=== PATIENT | male | born 1970 ===

== ENCOUNTER 2018-04-20 01:08 | Inpatient (IN) | payer SELFPAY ==
[2018-04-20] MEDS ORDERED: DOPAMINE 400 MG/D5W - 400,000 MCG/250 ML INFUS.BAG IVPB ONE (01:25)
[2018-04-20 01:38] VITALS: BMI 29.0
[2018-04-20] MEDS ORDERED: EPINEPHrine 1:10,000 (P-F SYR) 1 MG/10 ML DISP.SYRIN ONE ×2 (01:39→02:11)
[2018-04-20 01:49] LABS: ARTERIAL BLD GAS O2 SATURATION 71.1 % (90-98.9); ARTERIAL BLOOD GAS BASE EXCESS -27.4 meq/l (-2-2)
[2018-04-20 01:51] LABS: ARTERIAL BLOOD GAS PCO2 93.4 mmHg (35-45); ARTERIAL BLOOD GAS PO2 74.5 mmHg (80-100)
[2018-04-20 01:58] LABS: BASO % 0.4 % (0-2.0); EOS % 1.9 % (0-4.5); HEMATOCRIT 38.7 % (35.4-49); HEMOGLOBIN 11.9 GM/dL (11.7-16.9); LYMPH % 39.3 % (8-40); MCHC 30.7 g/dl (32.0-35.9); MEAN CELL VOLUME 100.8 fl (80-96); MEAN PLT VOLUME 10.3 fl (7.5-11.1); MONO % 5.9 % (3.8-10.2); NEUT % 52.5 % (42.8-82.8); PLATELET COUNT 154 K/MM3 (134-434); RBC 3.83 M/mm3 (4.00-5.60); RDW 14.5 % (11.9-15.9); WHITE BLOOD COUNT 12.5 K/mm3 (4.0-10.0)
[2018-04-20] MEDS ORDERED: CALCIUM CHLORIDE 1 GM/10 ML *DISP.SYRIN ONE (02:12)
[2018-04-20] MEDS ORDERED: SODIUM BICARBONATE 8.4% 50 MEQ/50 ML VIAL ONE (02:12)
[2018-04-20 02:20] LABS: ARTERIAL BLD GAS O2 SATURATION 98.4 % (90-98.9); ARTERIAL BLOOD GAS BASE EXCESS -19.1 meq/l (-2-2); ARTERIAL BLOOD GAS PCO2 45.1 mmHg (35-45)
[2018-04-20 02:29] LABS: ALBUMIN 2.5 g/dl (3.4-5.0); ALK PHOS 75 U/L (45-117); ANION GAP 32 MMOL/L (8-16); BILIRUBIN,TOTAL < 0.1 mg/dL (0.2-1); BLOOD UREA NITROGEN 5 mg/dL (7-18); CHLORIDE 91 mmol/L (98-107); CO2 14 mmol/L (21-32); CREATININE 1.6 mg/dL (0.55-1.3); POTASSIUM 3.2 mmol/L (3.5-5.1); SGOT/AST 93 U/L (15-37); SGPT/ALT 95 U/L (13-61); SODIUM 136 mmol/L (136-145); TOT PROT 5.3 g/dl (6.4-8.2)
[2018-04-20 02:33] LABS: CALCIUM 14.5 mg/dL (8.5-10.1); GLUCOSE,RANDOM 694 mg/dL (74-106)
[2018-04-20 02:34] LABS: ARTERIAL BLOOD GAS pH 7.04 (7.35-7.45)
[2018-04-20 02:43] LABS: INR 1.18 (0.83-1.09); PROTHROMBIN TIME (PATIENT) 13.9 SEC (9.7-13.0)
[2018-04-20 02:46] LABS: ACTIVATED PTT 46.1 SECONDS (25.2-36.5)
[2018-04-20 03:36] LABS: METHADONE, UR NEGATIVE ng/ml (CUTOFF=300); OPIATES, URI NEGATIVE ng/ml (CUTOFF=300); PHENCYCLIDINE,URINE NEGATIVE ng/ml (CUTOFF=25); URINE AMPHETAMINES NEGATIVE ng/ml (CUTOFF=500); URINE BARBITURATES NEGATIVE ng/ml (CUTOFF=200); URINE BENZODIAZEPINES NEGATIVE ng/ml (CUTOFF=200)
[2018-04-20 03:42] LABS: COCAINE, UR POSITIVE ng/ml (CUTOFF=300)
--- NOTE | 2018-04-20 03:49 | PDOC ---
Attending Attestation - HPI HPI: 04/20/18 03:49 The patient is a 48 year old male, with unknown significant past medical history , who presents to the emergency department via EMS unresponsive. As per EMS, the arrived at the [facility] on [facility] at 12:31am and the patient was unresponsive in cardiac arrest. The call to EMS was made by security after hearing an individual call for help approximately 5 times. While at the scene the patient was outside of the bathroom soaking wet, there was no sign of another person with him, a box of enemas and gloves were located in the fridge, and multiple chicken bones placed in the bathtub. EMS notes no medications or drugs were noted at the scene. EMS arrived to the ED at 1:07am after administering 5 of Epi and 4mg of Narcan, a 7.5 tube was placed, and Blane in place. 1:12am- the patient was administered epi and on bedside ultrasound patient had cardiac motility (PEA). 1:14am- Bicarb, CaCl administered. 1:16am- D50 administered 1:17am- 2mg Mg administered 1:18am- Epi administered 1:20am- Pulse check- Vfib; Shock; Asystole 1:21am- Epi administered 1:22am- Bicarb administered 1:27am- Pulse check; pulses noted 1:32am- Dopamine initiated at 5mcg 1:39am- 66/49 and Dopamine raised to 20mcg; pulse check- pulses noted 1:45am- Norepinephrine started at 4mg in 250mL at 44mcg 1:47am- 66/38 1:51am- 66/38 1:53am- 89/62 O2 saturation 100% 2:01am- Central line placed 2:12am- Blood glucose over range. - Physicial Exam PE: 04/20/18 03:50 Agree with resident exam. <Rinku Lemus - Last Filed: 04/20/18 03:52> - Resident Resident Name: Kristal Diaz - ED Attending Attestation I have performed the following: I have examined & evaluated the patient, The case was reviewed & discussed with the resident, I agree w/resident's findings & plan - Critical Care Time Total Critical Care Time: 90 Critical Care Statement: The care of this patient involved high complexity decision making to prevent further life threatening deterioration of the patient 's condition and/or to evaluate & treat vital organ system(s) failure or risk of failure. - Medical Decision Making 04/20/18 04:00 48-year-old male status post cardiac arrest with ROSC ACLS protocol initiated prior to arrival by EMS with successful intubation in the field Patient had approximately 20-30 minutes of asystole, ACLS continued in the emergency department with successful ROSC Call placed to [facility] catheter lab who declined the patient at this time due to nonspecific EKG changes Cooling measures initiated Case discussed with in-house ICU and hospitalist for admission Impression: Cardiac arrest Cocaine use <Vannesa Razo - Last Filed: 04/20/18 04:03> Attestations - Attestations 04/20/18 03:50 Documentation prepared by Rinku Lemus, acting as medical insurance claims specialist for Vannesa Razo DO. <Rinku Lemus - Last Filed: 04/20/18 03:52>
[2018-04-20] MEDS ORDERED: SODIUM CHLORIDE 1,000 ML IV SCH (04:30)
--- NOTE | 2018-04-20 04:33 | HP ---
<Reyna Dennis - Last Filed: 04/20/18 05:55> CHIEF COMPLAINT: cardiac arrest PCP: unknown HISTORY OF PRESENT ILLNESS: 48 y/o male, from the [place] with unknown PMH presented to the ED after having a cardiac arrest. Patient was at the [facility] when he began screaming, security came up and patient was found face down, soaking wet, for an unknown amount of time. Found at the scene were enemas and a chicken bone in the bathtub, however, no drugs were found at the scene- patient was alone. EMS was called and on route patient was given 4 mg epi and 7 of narcan and arrived by 1:07 to the ED. police was contacted (please see ED note for all further noes), patient was Vfib, PEA, asystole. [place] police dept was contacted by EMS , they were aware of the arrest. - ER course was notable for: (1) ROSC was achieved after 20-30 mins; patient intubated (2)on 4 of levpophed and 20 of dopamine (3) utox positive for cocaine Recent Travel: unknown PAST MEDICAL HISTORY: unknown PAST SURGICAL HISTORY: unknown Social History: Smoking:unknown Alcohol:unknown Drugs: positive cocaine Family History: Allergies No Allergy Information Available Allergy (Verified 04/20/18 01:38) HOME MEDICATIONS: Home Medications Medication Instructions Recorded Unobtainable 04/20/18 REVIEW OF SYSTEMS unable to obtain given patient is intubated CONSTITUTIONAL: Absent: fever, chills, diaphoresis, generalized weakness, malaise, loss of appetite, weight change HEENT: Absent: rhinorrhea, nasal congestion, throat pain, throat swelling, difficulty swallowing, mouth swelling, ear pain, eye pain, visual changes CARDIOVASCULAR: Absent: chest pain, syncope, palpitations, irregular heart rate, lightheadedness , peripheral edema RESPIRATORY: Absent: cough, shortness of breath, dyspnea with exertion, orthopnea, wheezing, stridor, hemoptysis GASTROINTESTINAL: Absent: abdominal pain, abdominal distension, nausea, vomiting, diarrhea, constipation, melena, hematochezia GENITOURINARY: Absent: dysuria, frequency, urgency, hesitancy, hematuria, flank pain, genital pain MUSCULOSKELETAL: Absent: myalgia, arthralgia, joint swelling, back pain, neck pain SKIN: Absent: rash, itching, pallor HEMATOLOGIC/IMMUNOLOGIC: Absent: easy bleeding, easy bruising, lymphadenopathy, frequent infections ENDOCRINE: Absent: unexplained weight gain, unexplained weight loss, heat intolerance, cold intolerance NEUROLOGIC: Absent: headache, focal weakness or paresthesias, dizziness, unsteady gait, seizure, mental status changes, bladder or bowel incontinence PSYCHIATRIC: Absent: anxiety, depression, suicidal or homicidal ideation, hallucinations. PHYSICAL EXAMINATION Vital Signs - 24 hr 04/20/18 04/20/18 01:08 01:30 Pulse Rate 92 H Respiratory 8 L 20 Rate Blood Pressure 109/24 L O2 Sat by Pulse 53 L Oximetry (%) GENERAL: intubated.; fasiculations and anoxic jerking motions present EYES: blood shot pupils; fixed and dilated. NECK: no JVD, no lymphadenopathy LUNGS: CTA B/L; no rales, rhonchi or wheezing HEART: tachycardic, normal S1 and S2 without murmur, rub or gallop. ABDOMEN: distended; tympanic upon percussion, diminished bowel sounds. MUSCULOSKELETAL: Normal range of motion at all joints. No bony deformities or tenderness. No CVA tenderness. EXTREMITIES; cool; no clubbing or edema NEUROLOGICAL: no response to painful stimuli. PSYCHIATRIC: Cooperative. Good eye contact. Appropriate mood and affect. SKIN: Warm, dry, normal turgor, no rashes or lesions noted, normal capillary refill. Laboratory Results - last 24 hr 04/20/18 04/20/18 04/20/18 01:40 01:40 01:40 WBC 12.5 H RBC 3.83 L Hgb 11.9 Hct 38.7 MCV 100.8 H MCH 31.0 MCHC 30.7 L RDW 14.5 Plt Count 154 MPV 10.3 Absolute Neuts (auto) 6.6 Neutrophils % 52.5 Lymphocytes % 39.3 Monocytes % 5.9 Eosinophils % 1.9 Basophils % 0.4 Nucleated RBC % 0 PT with INR 13.90 H INR 1.18 H PTT (Actin FS) 46.1 H Anticoagulation Therapy No Result Required. Puncture Site Right femoral ABG pH 6.70 L* ABG pCO2 at Pt Temp 93.4 H* ABG pO2 at Pt Temp 74.5 L ABG HCO3 10.9 L* ABG O2 Sat (Measured) 71.1 L* ABG O2 Content 12.0 L ABG Base Excess -27.4 L* Randy Test No Result Required. Carboxyhemoglobin 0.0 L Methemoglobin 0.9 O2 Delivery Device Ambu bag Oxygen Flow Rate 100% Vent Mode No Result Required. Vent Rate No Result Required. Mechanical Rate No Result Required. PEEP 0.0 Pressure Support Vent No Result Required. Sodium Potassium Chloride Carbon Dioxide Anion Gap BUN Creatinine Creat Clearance w eGFR Random Glucose Calcium Total Bilirubin AST ALT Alkaline Phosphatase Creatine Kinase Creatine Kinase Index CK-MB (CK-2) Troponin I Total Protein Albumin Opiates Screen Methadone Screen Barbiturate Screen Phencyclidine Screen Ur Amphetamines Screen MDMA (Ecstasy) Screen Benzodiazepines Screen Cocaine Screen U Marijuana (THC) Screen 04/20/18 04/20/18 04/20/18 01:40 02:11 03:08 WBC RBC Hgb Hct MCV MCH MCHC RDW Plt Count MPV Absolute Neuts (auto) Neutrophils % Lymphocytes % Monocytes % Eosinophils % Basophils % Nucleated RBC % PT with INR INR PTT (Actin FS) Anticoagulation Therapy Puncture Site Right femoral ABG pH 7.04 L* D ABG pCO2 at Pt Temp 45.1 H D ABG pO2 at Pt Temp 284.0 H* ABG HCO3 11.5 L* ABG O2 Sat (Measured) 98.4 ABG O2 Content 18.5 ABG Base Excess -19.1 L* Randy Test Not applicable Carboxyhemoglobin 0.0 L Methemoglobin 0.6 O2 Delivery Device Vent Oxygen Flow Rate 100% Vent Mode A/c Vent Rate 20 Mechanical Rate Yes PEEP 5.0 Pressure Support Vent 500 Sodium 136 Potassium 3.2 L Chloride 91 L Carbon Dioxide 14 L Anion Gap 32 H BUN 5 L Creatinine 1.6 H Creat Clearance w eGFR 46.77 Random Glucose 694 H* Calcium 14.5 H* Total Bilirubin < 0.1 L AST 93 H ALT 95 H Alkaline Phosphatase 75 Creatine Kinase 598 H Creatine Kinase Index 1.0 CK-MB (CK-2) 6.0 H Troponin I 0.03 Total Protein 5.3 L Albumin 2.5 L Opiates Screen Negative Methadone Screen Negative Barbiturate Screen Negative Phencyclidine Screen Negative Ur Amphetamines Screen Negative MDMA (Ecstasy) Screen Negative Benzodiazepines Screen Negative Cocaine Screen Positive A* U Marijuana (THC) Screen Negative ASSESSMENT/PLAN: 48 y/o male with unknown past medical history presents to the ED s/p cardiac arrest after being down for an unknown amount time . #Cardiac arrest likely 2/2 cocaine intoxication -hypothermia protocol initiated; maintain temp between 32-34 degrees Celsius within first 24 hrs -off sedation as of now to assess mental status -intubated on leveophed and dopamine -clindamycin for empiric abx coverage -echo ordered -monitor hemodynamics; maintain MAP above 65 -head CT -ICU monitoring #DKA unclear if patient has history of DM; sugar on arrival was 648 and anion gap was 32 and -started insulin drip -initiated bicarb drip @150cc/hr #JENNIFER -patients Cr was 1.; CK 598 -trending CK #Hypercalcemia patients calcium on admisson was 14.5; corrected 15.7; with fasiculations #Hypokalemia patients potassium on arrival was 3.2 -could consider adding KCl to fluids especially since patient is being started on insulin drip #Transaminitis F/E/N ND @100mls/hr monitor BMP q4h NPO Problem List - Problem (1) Cardiac arrest Code(s): I46.9 - CARDIAC ARREST, CAUSE UNSPECIFIED Visit type - Emergency Visit Emergency Visit: Yes ED Registration Date: 04/20/18 Care time: The patient presented to the Emergency Department on the above date and was hospitalized for further evaluation of their emergent condition. - New Patient This patient is new to me today: Yes Date on this admission: 04/20/18 - Critical Care Critical Care patient: No <Tashi Thorne - Last Filed: 04/23/18 05:13> Seen and examined; agree with above aside from as supplemented by myself.
[2018-04-20] MEDS ORDERED: INSULIN REGULAR 100 UNITS in SODIUM CHLORIDE 99 ML IVPB SCH (05:15)
--- NOTE | 2018-04-20 05:23 | PN ---
Teaching Attending Note Name of Resident: Diane Jc ATTENDING PHYSICIAN STATEMENT I saw and evaluated the patient. I reviewed the resident's note and discussed the case with the resident. I agree with the resident's findings and plan as documented. SUBJECTIVE: Seen and examined; please refer to resident documentation for further historical information. Briefly, this is a 48 y/o HM with a PMH that is unknown who presents to the ER after being BIBA; he cannot provide a history as he is intubated. Off all sedation when I saw him as cooling was initiated with no response to painful or verbal stimuli. From what we can piece together from the ER history and EMS history, he was at [facility] in [place]. He was screaming for help and EMS arrived at 12:31 AM to find the patient down surrounding by some rather odd materials as described in ER note (enemas, chicken bone, ?gloves; no meds or drugs immediately found at the scene). He was down for an unknown amount of time at least estimated to be ~30 min. Aparently he was attempted to be transferred to medical lab technician at [facility] Please see ER documentation for full history; was in PEA, Vfib, Asystole. Is now maxed out on 1 pressor with a second going; anion gap positive metabolic acidosis with transaminitis and refractory hypotension. Anoxic twitching seen superimposed with faciculations from hypercalcemia. He has 2 IDs with him that have 2 different places of within the [place]. Cocaine + in [place]. Spoke with [employer] and they did get a call around the time of EMS arrival; also I was informed by ER attending they phoned the [facility] and that this gentleman aparently had the room purchased for him by an elderly man who was not present with him at that time. He is being cooled per protocol. He is critically ill and it would not be surprising if he because of these severe acute issues. 10 sys ROS unable to be done PMH, PSH, Social hx, FH unable to be confirmed OBJECTIVE: VS, labs, imaging reviewed Severe distress with anoxic twitching and faciculations no response to painful or verbal stimuli off sedation prior to cooling Tachycardic with regular rhythm and no obvious mgr Lungs with vent associated breath sounds No obvious rashes or skin breakdown; CVC inserted sutured into place NT ND +BS Labs reviewed; shows leukocytosis to 12.5 with macrocytosis without anemia. Coags reviewed. Severe metabolic acidosis on ABG with initial combined primary metabolic and respiratory acidosis with some secondary disturbances; resolved into a more metabolic acidosis picture. He had a CO2 of 14, Cr of 1.6, glucose o 694 with initial pH of 6.7 and CK of 598. ASSESSMENT AND PLAN: Presents with cardiac arrest (PEA, asystole, VF); found to have a severe metabolic acidosis with +AG (Lactate pending; issue with the lab machine I am told) and severely elevated glucose. We do not know any history on this patient. He is cocaine positive. 1) Cardiac Arrest (PEA/VF/asystole) -Cause unclear; could be related to cocaine use (implicated in sudden cardiac ) vs. DKA (given AG+ metabolic acidosis) -Cooling protocol; Echo pending. Monitor lytes, etc. Management per ICU team. 2) Severe Metabolic Acidosis with initial (now resolved) respiratory acidosis -Respiratory component much much improved with ventillation with pCO2 falling from 90 range to 40 range. It could have been elevated so much due to him being down for prolonged period, etc. No shilpa PNA on CXR. -Metabolic component could be from DKA picture, CA itself worsning an occult component, etc. -Trend ABG, ventillatory support, bicarb drip. 3) Suspected DKA -Check A1c; follow DKA protocol. Drip ordered. This could explain some of the metabolic derrangements and must be treated MEETA. 4) Transaminitis -Expected to worsen given shock liver; will trend CMP. Consider RUQ u/s if abdominal sx develop but likely hypoperfusion injury 5) Elevated CK -Trend; given his agitated behavior documented in ED notes prior to EMS arrival he is at risk for rhabdo (and his AST is elevated as well) 6) Severe Hypercalcemia -Trend, monitor. IVF. Consider renal consult. 7) Elevated CKMB -Trend Marce and monitor tele; consider repeat EKG this AM 8) JENNIFER -Hydrating; expecting him to develop a degree of ATN. Consider renal consult. Obtain FeNa 9) Cocaine Abuse 10) Suspected Anoxia -FU neuroimaging FENA -Bicarb drip, isotonic until made -PRN replete -NPO -Bedrest on cooling protocol Full Code
[2018-04-20] MEDS ORDERED: DEXTROSE 5%-WATER - 1,000 ML with SODIUM BICARBONATE 8.4% - 150 MEQ IV SCH ×2 (05:30→06:19)
[2018-04-20] MEDS ORDERED: CYANOCOBALAMIN (VITAMIN B-12) 1000 MCG/1 ML VIAL IM ONE (05:34)
[2018-04-20] MEDS ORDERED: THIAMINE HCL 200 MG/2 ML VIAL ONE (05:46)
[2018-04-20] MEDS: THIAMINE HCL 200 MG/2 ML VIAL IM SCH ×2 (05:50→09:15)
--- NOTE | 2018-04-20 06:09 | PDOC ---
History of Present Illness - General Chief Complaint: Cardiac Arrest Stated Complaint: CARDIAC ARREST - History of Present Illness Initial Comments: 48 year old male BIBEMS after being found down in the [facility] on the floor soaked in water. Per EMS, the security at the hotel heard the patient screaming a few times and 10 minutes later they went to the patient's room and found him down on the floor soaked in water. EMS arrived on soon soon after and the patient was pulse-less, asystolic, and they began CPR. The patient was coded for approximately 30 minutes total and the only rhythms noted were v-tach which was shocked which converted to asystole. The patient arrived intubated and astrid device on his chest. We continued to code the patient. Per EMS, the room had strange items in it including chicken bones in the bathtub, latex gloves in the fridge, and a box of enemas in the living room. 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 I called the [facility] to see if I could find some ancillary information and the motel staff stated the room that was rented was rented by a 89 year old male. I left our contact information with the desk staff who said they would have someone call if anyone asked about the patient. 04/20/18 06:03 Past History - Past Medical History Allergies/Adverse Reactions: Allergies Allergy/AdvReac Type Severity Reaction Status Date / Time No Allergy Information Allergy Verified 04/20/18 01:38 Available Home Medications: Ambulatory Orders Unobtainable 04/20/18 - Suicide/Smoking/Psychosocial Hx Smoking History: Unknown if ever smoked Information on smoking cessation initiated: No Hx Alcohol Use: No Drug/Substance Use Hx: No Review of Systems - Review of Systems Able to Perform ROS?: No (Intubated, post arrest) Is the patient limited Azeri proficient: Yes *Physical Exam - Vital Signs Last Vital Signs Temp Pulse Resp BP Pulse Ox 92.1 F L 117 H 20 122/72 98 04/20/18 02:20 04/20/18 03:41 04/20/18 01:30 04/20/18 04:35 04/20/18 01:30 - Physical Exam General Appearance: Yes: Nourished, Other (intubated, sedated but no sign of trauma or obvious deformity). No: Disheveled, Alcohol on Breath HEENT: negative: EOMI, MORRO (widened and non reactive), Normal ENT Inspection ( ET tube in place but no other sign of trauma.) Neck: positive: Trachea midline, Supple Respiratory/Chest: positive: Lungs Clear. negative: Normal Breath Sounds ( mechanical breath sounds) Cardiovascular: negative: Regular Rhythm, Regular Rate (tachycardia with premature beats) Gastrointestinal/Abdominal: positive: Normal Bowel Sounds, Flat, Soft. negative : Pulsatile Mass Male Genitalia: positive: normal genitalia. negative: hematuria Musculoskeletal: positive: Other. negative: Normal Inspection (intubated and sedated, flaccid without obvious defomrity or sign of trauma.) Extremity: positive: Normal Capillary Refill, Normal Inspection, Normal Range of Motion (normal passsive range of motion, not actively moving) Integumentary: positive: Normal Color, Dry, Cold. negative: Warm Neurologic: positive: Other (sedated and on paralyitics). negative: Fully Oriented Moderate Sedation - Procedure Monitoring Vital Signs: Procedure Monitoring Vital Signs Temperature 92.1 F L 04/20/18 02:20 Pulse Rate 117 H 04/20/18 03:41 Respiratory Rate 20 04/20/18 01:30 Blood Pressure 122/72 04/20/18 04:35 O2 Sat by Pulse Oximetry (%) 98 04/20/18 01:30 Procedures - Central Line Central Line Lumen: triple Central Line Position: subclavian (R) Anesthesia: other (intubated with marguerite and etomidate) Complications: none Post Central Line Insertion: sutured, good blood return, position confirmed w/ CXR Progress: 04/21/18 08:41 Central line placed in right subclavian because of need for pressers. A few attempts were made without complication before success. ED Treatment Course - LABORATORY CBC & Chemistry Diagram: 04/21/18 05:30 04/21/18 05:30 - ADDITIONAL ORDERS Additional order review: Laboratory Results 04/20/18 04/20/18 04/20/18 03:08 02:11 01:40 PT with INR INR PTT (Actin FS) Anticoagulation Therapy Puncture Site Right femoral ABG pH 7.04 L* D ABG pCO2 at Pt Temp 45.1 H D ABG pO2 at Pt Temp 284.0 H* ABG HCO3 11.5 L* ABG O2 Sat (Measured) 98.4 ABG O2 Content 18.5 ABG Base Excess -19.1 L* Randy Test Not applicable Carboxyhemoglobin 0.0 L Methemoglobin 0.6 O2 Delivery Device Vent Oxygen Flow Rate 100% Vent Mode A/c Vent Rate 20 Mechanical Rate Yes PEEP 5.0 Pressure Support Vent 500 Sodium 136 Potassium 3.2 L Chloride 91 L Carbon Dioxide 14 L Anion Gap 32 H BUN 5 L Creatinine 1.6 H Creat Clearance w eGFR 46.77 Random Glucose 694 H* Calcium 14.5 H* Total Bilirubin < 0.1 L AST 93 H ALT 95 H Alkaline Phosphatase 75 Creatine Kinase 598 H Creatine Kinase Index 1.0 CK-MB (CK-2) 6.0 H Troponin I 0.03 Total Protein 5.3 L Albumin 2.5 L Opiates Screen Negative Methadone Screen Negative Barbiturate Screen Negative Phencyclidine Screen Negative Ur Amphetamines Screen Negative MDMA (Ecstasy) Screen Negative Benzodiazepines Screen Negative Cocaine Screen Positive A* U Marijuana (THC) Screen Negative 04/20/18 04/20/18 01:40 01:40 PT with INR 13.90 H INR 1.18 H PTT (Actin FS) 46.1 H Anticoagulation Therapy No Result Required. Puncture Site Right femoral ABG pH 6.70 L* ABG pCO2 at Pt Temp 93.4 H* ABG pO2 at Pt Temp 74.5 L ABG HCO3 10.9 L* ABG O2 Sat (Measured) 71.1 L* ABG O2 Content 12.0 L ABG Base Excess -27.4 L* Randy Test No Result Required. Carboxyhemoglobin 0.0 L Methemoglobin 0.9 O2 Delivery Device Ambu bag Oxygen Flow Rate 100% Vent Mode No Result Required. Vent Rate No Result Required. Mechanical Rate No Result Required. PEEP 0.0 Pressure Support Vent No Result Required. Sodium Potassium Chloride Carbon Dioxide Anion Gap BUN Creatinine Creat Clearance w eGFR Random Glucose Calcium Total Bilirubin AST ALT Alkaline Phosphatase Creatine Kinase Creatine Kinase Index CK-MB (CK-2) Troponin I Total Protein Albumin Opiates Screen Methadone Screen Barbiturate Screen Phencyclidine Screen Ur Amphetamines Screen MDMA (Ecstasy) Screen Benzodiazepines Screen Cocaine Screen U Marijuana (THC) Screen 04/20/18 01:40 RBC 3.83 L MCV 100.8 H MCHC 30.7 L RDW 14.5 MPV 10.3 Neutrophils % 52.5 Lymphocytes % 39.3 Monocytes % 5.9 Eosinophils % 1.9 Basophils % 0.4 - RADIOLOGY Radiology Studies Ordered: Category Date Time Status CHEST X-RAY PORTABLE* [RAD] Stat Radiology 04/20/18 01:39 Taken - Medications Given in the ED: ED Medications Discontinued Medications Generic Name Dose Route Start Last Admin Trade Name Jhonq PRN Reason Stop Dose Admin Sodium Chloride 1,000 mls @ 100 mls/hr 04/20/18 04:30 04/20/18 04:36 Normal Saline - IV 100 mls/hr ASDIR MORRIS Administration Medical Decision Making - Medical Decision Making 48 year old male presenting after after being found down in his apartment. Unclar etiology but tox related arrytmia high on our list. The EMS and in ED coding sequence was as follows: EMS arrival at 1:07am s/p 5 of Epi and 4mg of Narcan, 7.5 ETT placement, and Astrid in place. 1:12am- the patient was administered epi and on bedside ultrasound patient had cardiac motility (PEA). 1:14am- Bicarb, CaCl administered. 1:16am- D50 administered 1:17am- 2mg Mg administered 1:18am- Epi administered 1:20am- Pulse check- Vfib; Shock; Asystole 1:21am- Epi administered 1:22am- Bicarb administered 1:27am- Pulse check; pulses noted 1:32am- Dopamine initiated at 5mcg 1:39am- 66/49 and Dopamine raised to 20mcg; pulse check- pulses noted 1:45am- Norepinephrine started at 4mg in 250mL at 44mcg 1:47am- 66/38 1:51am- 66/38 1:53am- 89/62 O2 saturation 100% 2:01am- Central line placed 2:12am- Blood glucose over range. Cocaine ended up returning positive so likely this was a cocaine related arrhythmia. The items found in the apartment could potentially have corroborated body packing (gloves found in the fridge, box of enemas, and cocaine toxicity). Cooling protocol started as well. Of note patient started to twitch quite a bit shortly after ROsc returned. It was found that his calcium was 14 (likely from the calcium given during code) so this ma be the cause of that which subsequently lead to muscle contractions/ fasciculations. His labs corroborated a metabolic acidosis and troponin wa only 0.03. [employer] was called because EKG had some elevations in the anterior leads and depression in th elateral leads. They discussed the case with us but did not see clear pattern of OK so felt that cath was not indicated. Patient signed out to medicine team and ICU team. *DC/Admit/Observation/Transfer Diagnosis at time of Disposition: Signs of return of spontaneous circulation, Cardiac arrest - Discharge Dispostion Condition at time of disposition: Critical Decision to Admit order: Yes - Referrals - Patient Instructions - Post Discharge Activity
[2018-04-20] MEDS ORDERED: POTASSIUM CHLORIDE 20 MEQ PREMIX IVPB 100 ML IVPB ONE (06:24)
[2018-04-20] MEDS ORDERED: SODIUM CHLORIDE 0.9%/KCL 20 MEQ/1,000 ML INFUS.BAG IV SCH (06:30)
[2018-04-20 06:50] LABS: ALLENS TEST POSITIVE; ARTERIAL BLD GAS O2 SATURATION 98.3 % (90-98.9); ARTERIAL BLOOD GAS BASE EXCESS -5.4 meq/l (-2-2); ARTERIAL BLOOD GAS PCO2 28.9 mmHg (35-45)
--- NOTE | 2018-04-20 07:02 | CONSULT ---
Consult Consult Specialty:: ICU Referred by:: Saurabh Reason for Consultation:: s/p ROSC after cardiac arrest - History of Present Illness Chief Complaint: cardiac arrest History of Present Illness: 48 yr old man with unknown past medical history bibems after having CPR initiated in the field. ROSC events noted in the ED record. chart reviews for information Pt was yelling for help at the [place] hotel, and attends called ambulance and police. Police searched his room and found enemas and gloves in the fridge with chicken bones in the bathroom, no signs of drugs or drug paraphelia noted in the ED record. - Alcohol/Substance Use Hx Alcohol Use: No - Smoking History Smoking history: Unknown if ever smoked Home Medications - Allergies Allergies/Adverse Reactions: Allergies Allergy/AdvReac Type Severity Reaction Status Date / Time No Allergy Information Allergy Verified 04/20/18 01:38 Available - Home Medications Home Medications: Ambulatory Orders Unobtainable 04/20/18 Physical Exam Vital Signs: Vital Signs Temperature 92.1 F L 04/20/18 02:20 Pulse Rate 117 H 04/20/18 03:41 Respiratory Rate 32 H 04/20/18 05:05 Blood Pressure 122/72 04/20/18 04:35 O2 Sat by Pulse Oximetry (%) 98 04/20/18 01:30 Constitutional: Yes: Well Nourished, Calm Eyes: Yes: PERRL (sluggish but equal) HENT: Yes: Atraumatic, Normocephalic, Other (poor oral hygiene, intubated, nares patent) Neck: Yes: Supple, Trachea Midline. No: Lymphadenopathy, Thyromegaly Cardiovascular: Yes: Tachycardia. No: Murmur Respiratory: Yes: Intubated Gastrointestinal: Yes: Distention, Hypoactive Bowel Sounds Renal/: Yes: Hahn Present. No: Hematuria, Scrotal Edema Breast(s): No: Mass Musculoskeletal: Yes: Other (jerking movements in UE spontanously and when stimulated) Edema: No Peripheral Pulses WNL: Yes Integumentary: No: Bruising, Jaundice, Rash Labs: CBC, BMP 04/20/18 01:40 04/20/18 01:40 Assessment/Plan 48 yr old with unknown medical history bibems s/p cardiac arrest in the field obtained ROSC in the ED found to have cocaine in his urine tox. Neuro -head CT pending will need to assess mental status post-TTM CV - cardiac arrest - cooling protocol initiated following TTM protocol for 24hrs - currently on levophed gtt drip for pressure support for goal MAP 65 via right IJ. s/p dopamine in ED - repeat labs ordered, awaiting current levels - trend elevated troponins, repeat ekg, echo GI - NG tube placed with thick brown fluid return, placed to suction - abd distention, abd xray ordered to further investigate - transaminitis, likely hepatic injury due to hypoperfusion Respiratory - intubated - tachypnea - Acute (uncompensated) primary respiratory acidosis, with metabolic acidosis, with increased anion gap - bicarb drip ID - emperic abx - bld and ucx pending Endo elevated sugars in male,diffs include DKA - insulin drip if repeat labs show anion gap with hyperglycemia+urine ketones are positive - stat BGM at 7:00am 219 Renal - JENNIFER - hahn in place for close uop - IVF FEN - replete electrolytes Prophylaxis - SCD's - GI: protonix 40mg
[2018-04-20 07:04] LABS: BASO % 0.1 % (0-2.0); EOS % 0.1 % (0-4.5); HEMATOCRIT 48.7 % (35.4-49); HEMOGLOBIN 16.5 GM/dL (11.7-16.9); LYMPH % 6.8 % (8-40); MCH 30.6 pg (25.7-33.7); MCHC 33.9 g/dl (32.0-35.9); MEAN CELL VOLUME 90.3 fl (80-96); MEAN PLT VOLUME 8.7 fl (7.5-11.1); MONO % 1.1 % (3.8-10.2); NEUT % 91.9 % (42.8-82.8); PLATELET COUNT 261 K/MM3 (134-434); RDW 13.3 % (11.9-15.9); WHITE BLOOD COUNT 26.2 K/mm3 (4.0-10.0)
[2018-04-20 07:15] LABS: INR 1.09 (0.83-1.09); PROTHROMBIN TIME (PATIENT) 12.9 SEC (9.7-13.0)
[2018-04-20 07:18] LABS: ACTIVATED PTT 29.1 SECONDS (25.2-36.5)
[2018-04-20 07:24] LABS: PLATELET ESTIMATE ADEQUATE
[2018-04-20 07:50] LABS: ALBUMIN 3.9 g/dl (3.4-5.0); ALK PHOS 139 U/L (45-117); ANION GAP 18 MMOL/L (8-16); BILIRUBIN,TOTAL 0.4 mg/dL (0.2-1); BLOOD UREA NITROGEN 13 mg/dL (7-18); CALCIUM 10.1 mg/dL (8.5-10.1); CHLORIDE 100 mmol/L (98-107); CO2 21 mmol/L (21-32); CREATININE 2.3 mg/dL (0.55-1.3); GLUCOSE,RANDOM 232 mg/dL (74-106); POTASSIUM 3.1 mmol/L (3.5-5.1); SGOT/AST 338 U/L (15-37); SGPT/ALT 232 U/L (13-61); SODIUM 139 mmol/L (136-145); TOT PROT 7.8 g/dl (6.4-8.2)
[2018-04-20] MEDS ORDERED: NOREPINEPHRINE BITARTRATE 4 MG/4 ML ML IV ONE (08:05)
[2018-04-20] MEDS: NOREPINEPHRINE BITARTRATE 4,000 MCG in DEXTROSE 5%-WATER - 496 ML IV SCH (08:13)
[2018-04-20] MEDS ORDERED: SODIUM BICARBONATE 8.4% - 150 MEQ in DEXTROSE 5%-WATER - 1,000 ML IV SCH (08:25)
[2018-04-20] MEDS ORDERED: hydrALAZINE HCL 20 MG/ML VIAL IVPUSH ONE (08:37)
[2018-04-20] MEDS: CLINDAMYCIN 600MG PREMIX IVPB 600 MG/50 ML BAG IVPB SCH ×2 (08:49→09:15)
[2018-04-20] MEDS: KCL 10 MEQ IVPB 10 MEQ/100 ML INFUS.BAG IVPB SCH ×3 (08:52→10:35)
[2018-04-20 08:57] LABS: MAGNESIUM 5.6 mg/dL (1.8-2.4)
[2018-04-20] MEDS: PROPOFOL 1,000,000 MCG/100 ML VIAL IV SCH (09:09)
[2018-04-20] MEDS: FOLIC ACID 5 MG/1 ML SQ SCH ×2 (09:17→12:40)
[2018-04-20] MEDS ORDERED: MIDAZOLAM 100 MG/100 ML MG IVPB ONE (09:48)
[2018-04-20] MEDS: MIDAZOLAM 100 MG in SODIUM CHLORIDE 100 ML IVPB SCH (10:00)
--- NOTE | 2018-04-20 10:17 | PN ---
Physical Exam: SUBJECTIVE: Patient seen and examined by me at bedside. S/P cardiac arrest found at a motel Was found to have positive cocaine in urine Patient opened his eyes and moved on sternal rub NG tube in place- draned 200cc coffee ground emesis ET tube in place and on pressors Currently on hypothermia protocol will need to maintain between 32-36 Celsius OBJECTIVE: Vital Signs Period Temp Pulse Resp BP Sys/Boykin Pulse Ox Last 24 Hr 92.1 F-96.8 F 92-133 8-41 66-122/24-88 53-98 GENERAL: Intubated and sedated. Responded to sternal rub HEAD: Normal with no signs of trauma. EYES: PERRL, sclera anicteric, conjunctiva clear. No ptosis. ENT: ET tube placed NECK: No JVD or lymphadenopathy LUNGS: On ventilator. breath sounds anteriorly HEART: Tachycardci with regulr rhythm, normal s1 and s2, without murmur, rub or gallop. ABDOMEN: Soft, nontender, (+) distended, normoactive bowel sounds, no guarding, no rebound EXTREMITIES: No edema. NEUROLOGICAL: unable to assess SKIN: Warm, dry, normal turgor, no rashes or lesions noted LINES: (+)Carr with 100cc of yellow urine (+) NG tube with 200cc of brown coffee ground emesis (+) ET tube VENT SETTINGS: tv-500, peep-5, Fi02- 60%, RR 18 Laboratory Results 04/20/18 06:40 04/20/18 06:40 04/20/18 04/20/18 04/20/18 03:08 06:40 06:40 INR 1.09 PTT (Actin FS) 29.1 Lactic Acid Magnesium 5.6 H AST 338 H ALT 232 H Alkaline Phosphatase 139 H Creatine Kinase Troponin I Cocaine Screen Positive A* 04/20/18 04/20/18 06:40 Unknown INR PTT (Actin FS) Lactic Acid 8.1 H* Magnesium AST ALT Alkaline Phosphatase Creatine Kinase 3853 H Troponin I 7.99 H* Cocaine Screen ABG Results ABG pH 7.40 (7.35-7.45) D 04/20/18 06:40 ABG pCO2 at Pt Temp 28.9 mmHg (35-45) L D 04/20/18 06:40 ABG pO2 at Pt Temp 117.0 mmHg (80-100) H D 04/20/18 06:40 ABG HCO3 17.8 meq/L (22-26) L 04/20/18 06:40 ABG O2 Sat (Measured) 98.3 % (90-98.9) 04/20/18 06:40 ABG O2 Content 23.7 % vol (15-22) H 04/20/18 06:40 ABG Base Excess -5.4 meq/l (-2-2) L 04/20/18 06:40 Active Medications Generic Name Dose Route Start Last Admin Trade Name Frejaison PRN Reason Stop Dose Admin Chlorhexidine Gluconate 1 applic 04/20/18 22:00 Hibiclens For Decolonization - TP HS MORRIS Folic Acid 1 mg 04/20/18 05:17 04/20/18 09:17 Folic Acid Injection - SQ Not Given DAILY MORRIS Clindamycin Phosphate 600 mg in 50 mls @ 100 mls/hr 04/20/18 06:00 04/20/18 09:15 Cleocin 600 Mg Premix Ivpb - IVPB 100 mls/hr Q8H-IV MORRIS Administration Protocol Propofol 1,000,000 mcg in 100 mls @ 2.449 mls/hr 04/20/18 07:45 04/20/18 09: 09 Diprivan - IV 5 mcg/kg/min TITR MORRIS 2.449 mls/hr Administration Protocol 5 MCG/KG/MIN Norepinephrine Bitartrate 4, 500 mls @ 37.5 mls/hr 04/20/18 08:00 04/20/18 08 :13 000 mcg/ Dextrose IV 5 mcg/min TITR MORRIS 37.5 mls/hr Administration Protocol 5 MCG/MIN Potassium Chloride 10 meq in 100 mls @ 100 mls/hr 04/20/18 08:30 04/20/18 09: 16 Potassium Chloride 10 Meq Premix Ivpb - IVPB 04/20/18 11:29 100 mls/hr Q60M MORRIS Administration Sodium Bicarbonate 150 meq/ 1,150 mls @ 100 mls/hr 04/20/18 08:25 04/20/18 09 :07 Dextrose IV 100 mls/hr Q11H MORRIS Administration Midazolam HCl 100 mg/ Sodium 100 mls @ 1 mls/hr 04/20/18 09:45 Chloride IVPB TITR MORRIS Protocol 1 MG/HR Mupirocin 1 applic 04/20/18 10:00 Bactroban Ointment (For Decolonization) - NS 04/25/18 09:59 BID [facility] Thiamine HCl 200 mg 04/20/18 05:16 04/20/18 09:15 Vitamin B1 Injection - IM 200 mg DAILY MORRIS Administration ASSESSMENT/PLAN: Patient is a 48 year old male who presented with Cardiac Arrest (PE, Asystole, VF) after being found in a Motel last night. Patient was found to have severe metabolic acidosis and positive cocaine in his urine. S/P Cardiac Arrest -Possibly secondary to cocaine use or infectious vs metabolic etiology -Patient found to have Hyperglycemia with anion gap and metabolic acidosis -Cooling protocol initiated. Goal of 32-36 Celsius -Propofol drip running -Levophed running at 4mcg -Versed running -Cardiology consult placed -Continue ICU monitoring Severe Metabolic Acidosis with AG and Lactic Acidosis -pH Initially 6.7 -Likely s/p cardiac arrest -Currently on Bicarb drip -Remains intubated and sedated -Trend ABG's Anoxic Brain Injury -Reported he was down for 30 minutes -Will consult neurology to evaluate. Hyperglycemia -With anion gap, concerning for DKA but possibly component from cardiac arrest. Patient on several medications with dextrose -A1C 5.7 -Improving and now in 200's -BGM -ISS Transaminitis -Continues to trend up -Shock liver likely from cardiac arrest Elevated Troponins -Continues to increase 7.99 today -Continue to trend Elevated CK -Possibly from Rhabdo and cardiac arrest JENNIFER Likely from hypovolemia -Continue IV hydration -Renal consult in Cocaine Use -(+) cocaine in urine -Avoid BB F/E/N -On bicarb -hypokalemia. repeat and replete -NPO Prophylaxis -SCD'S for DVT -Protonix for GI Disposition -Full code -ICU Monitoring Nesha Rhodes [id number] Visit type - Emergency Visit Emergency Visit: Yes ED Registration Date: 04/20/18 Care time: The patient presented to the Emergency Department on the above date and was hospitalized for further evaluation of their emergent condition. - New Patient This patient is new to me today: Yes Date on this admission: 04/21/18 - Critical Care Critical Care patient: Yes Total Critical Care Time (in minutes): 45 Critical Care Statement: The care of this patient involved high complexity decision making to prevent further life threatening deterioration of the patient 's condition and/or to evaluate & treat vital organ system(s) failure or risk of failure.
[2018-04-20] MEDS ORDERED: PT OWN MED DRAWER 7, Y5N ONE ×3 (10:45→21:13)
[2018-04-20] MEDS: MUPIROCIN 2% TOPICAL OINTMENT FOR DECOLONIZATION NS SCH ×2 (10:46→21:27)
[2018-04-20 11:53] LABS: URINE APPEARANCE TURBID; URINE BILIRUBIN NEGATIVE (<2.0 mg/dL); URINE COLOR RED; URINE GLUCOSE (UA) 2+ (NEGATIVE); URINE KETONE NEGATIVE (NEGATIVE); URINE LEUK ESTERASE NEGATIVE (NEGATIVE); URINE NITRITE NEGATIVE (NEGATIVE); URINE PROTEIN 2+ (NEGATIVE); URINE UROBILINOGEN NEGATIVE mg/dL (0.2-1.0)
--- NOTE | 2018-04-20 11:56 | PN ---
Teaching Attending Note Name of Resident: Aj Monterroso ATTENDING PHYSICIAN STATEMENT I saw and evaluated the patient. I reviewed the resident's note and discussed the case with the resident. I agree with the resident's findings and plan as documented. SUBJECTIVE: Pt seen and examined in the ICU. Hypothermia protocol in progress. Remains intubated, sedated on levophed gtt. OBJECTIVE: Vital Signs Period Temp Pulse Resp BP Sys/Boykin Pulse Ox Last 24 Hr 92.1 F-96.8 F 92-133 8-41 66-122/24-88 53-98 Intake & Output 04/17/18 04/18/18 04/19/18 04/20/18 23:59 23:59 23:59 23:59 Output Total 100 Balance -100 Weight 81.647 kg Gen: intubated, sedated but with rhythmic jerks when stimulated Heart: RRR Lung: decreased breath sounds at the bases Abd: softly distended, nontender Ext: no edema CBC, BMP 04/20/18 06:40 04/20/18 06:40 Active Medications Chlorhexidine Gluconate (Hibiclens For Decolonization -) 1 applic TP HS MORRIS Folic Acid (Folic Acid Injection -) 1 mg SQ DAILY MORRIS Last Admin: 04/20/18 09:17 Dose: Not Given Propofol (Diprivan -) 1,000,000 mcg in 100 mls @ 2.449 mls/hr IV TITR MORRIS; Protocol Last Admin: 04/20/18 09:09 Dose: 5 mcg/kg/min, 2.449 mls/hr Norepinephrine Bitartrate 4, (000 mcg/ Dextrose) 500 mls @ 37.5 mls/hr IV TITR MORRIS; Protocol Last Admin: 04/20/18 08:13 Dose: 5 mcg/min, 37.5 mls/hr Sodium Bicarbonate 150 meq/ (Dextrose) 1,150 mls @ 100 mls/hr IV Q11H MORRIS Last Admin: 04/20/18 09:07 Dose: 100 mls/hr Midazolam HCl 100 mg/ Sodium (Chloride) 100 mls @ 1 mls/hr IVPB TITR MORRIS; Protocol Last Admin: 04/20/18 10:00 Dose: 1 mg/hr, 1 mls/hr Sodium Chloride (Normal Saline -) 1,000 mls @ 100 mls/hr IV ASDIR MORRIS Piperacillin Sod/Tazobactam (Sod 3.375 gm/ Dextrose) 50 mls @ 100 mls/hr IVPB ONCE ONE; Protocol Stop: 04/20/18 11:57 Mupirocin (Bactroban Ointment (For Decolonization) -) 1 applic NS BID [facility] Stop: 04/25/18 09:59 Last Admin: 04/20/18 10:46 Dose: 1 applic Thiamine HCl (Vitamin B1 Injection -) 200 mg IM DAILY [facility] Last Admin: 04/20/18 09:15 Dose: 200 mg Vancomycin HCl (Vancomycin (Pre-Docked)) 1,000 mg IVPB ONCE ONE; Protocol Stop: 04/20/18 11:29 ASSESSMENT AND PLAN: s/p Cardiopulmonary Arrest on Hypothermia Protocol r/o Anoxic Encephalopathy r/o Acute NV Cocaine Use Shock - Septic vs Cardiogenic Severe Metabolic Acidosis improving Hyperglycemia improving Elevated LFTs likely Ischemic Injury Acute Kidney Injury - hypothermia protocol in progress - trend cardiac enzymes, lactate, EKGs - echocardiogram - trend LFTs - IVF - taper levophed gtt to maintain MAP >65 - monitor urine output, creatinine - can d/c bicarb gtt - replete lytes - empiric antibiotics - f/u cultures - start versed gtt, empiric antiepileptics for jerks - sedate for vent synchrony and hypothermia protocol - continue volume assist control - when hypothermia protocol complete, hold all sedation to assess mental status - enteral feeds - DVT/GI prophylaxis - continue ICU monitoring critical care time spent in reviewing chart, evaluating patient and formulating plan 35 min
[2018-04-20] MEDS ORDERED: PIPERACILLIN/TAZOB 3.375 GM 3.375 GM in DEXTROSE 5%-WATER - 50 ML IVPB SCH (12:00)
[2018-04-20] MEDS ORDERED: VANCOMYCIN 1 GRAM (PRE-DOCKED) 1,000 MG/250 ML BAG IVPB ONE (12:00)
[2018-04-20] MEDS ORDERED: PIPERACILLIN/TAZOB 3.375 GM 3.375 GM in DEXTROSE 5%-WATER - 50 ML IVPB ONE (12:00)
[2018-04-20 12:11] LABS: ARTERIAL BLD GAS O2 SATURATION 99.3 % (90-98.9); ARTERIAL BLOOD GAS BASE EXCESS -7.9 meq/l (-2-2); ARTERIAL BLOOD GAS PCO2 30.3 mmHg (35-45); ARTERIAL BLOOD GAS pH 7.34 (7.35-7.45)
[2018-04-20 12:16] LABS: ALLENS TEST POSITIVE
[2018-04-20] MEDS: SODIUM CHLORIDE 1,000 ML IV SCH (12:25)
[2018-04-20] MEDS ORDERED: PIPERACILLIN/TAZOBACTAM 3.375 GM VIAL IVPB ONE ×2 (12:27→21:13)
[2018-04-20] MEDS ORDERED: DEXTROSE 5%-WATER - 50 ML IVPB ONE ×2 (12:27→21:13)
[2018-04-20 12:29] LABS: URINE MUCUS RARE
[2018-04-20] MEDS: levETIRAcetam 500 MG/5 ML INJECTION VIAL IVPB SCH ×2 (12:39→21:24)
--- NOTE | 2018-04-20 13:46 | PN ---
Progress Note, Physician History of Present Illness: Patient seen and examined at bedside. He remains intubated and sedated. Continues to require pressors for BP support. He continues on targeted temperature management. - Current Medication List Current Medications: Active Medications Chlorhexidine Gluconate (Hibiclens For Decolonization -) 1 applic TP HS MORRIS Folic Acid (Folic Acid Injection -) 1 mg SQ DAILY MORRIS Last Admin: 04/20/18 12:40 Dose: Not Given Propofol (Diprivan -) 1,000,000 mcg in 100 mls @ 2.449 mls/hr IV TITR MORRIS; Protocol Last Admin: 04/20/18 09:09 Dose: 5 mcg/kg/min, 2.449 mls/hr Norepinephrine Bitartrate 4, (000 mcg/ Dextrose) 500 mls @ 37.5 mls/hr IV TITR MORRIS; Protocol Last Admin: 04/20/18 08:13 Dose: 5 mcg/min, 37.5 mls/hr Sodium Bicarbonate 150 meq/ (Dextrose) 1,150 mls @ 100 mls/hr IV Q11H MORRIS Last Admin: 04/20/18 09:07 Dose: 100 mls/hr Midazolam HCl 100 mg/ Sodium (Chloride) 100 mls @ 1 mls/hr IVPB TITR MORRIS; Protocol Last Admin: 04/20/18 10:00 Dose: 1 mg/hr, 1 mls/hr Sodium Chloride (Normal Saline -) 1,000 mls @ 100 mls/hr IV ASDIR MORRIS Last Admin: 04/20/18 12:25 Dose: 100 mls/hr Piperacillin Sod/Tazobactam (Sod 3.375 gm/ Dextrose) 50 mls @ 100 mls/hr IVPB Q6H-IV MORRIS; Protocol Levetiracetam (Keppra Injection -) 500 mg IVPB BID MORRIS Last Admin: 04/20/18 12:39 Dose: 500 mg Mupirocin (Bactroban Ointment (For Decolonization) -) 1 applic NS BID [facility] Stop: 04/25/18 09:59 Last Admin: 04/20/18 10:46 Dose: 1 applic Thiamine HCl (Vitamin B1 Injection -) 200 mg IM DAILY [facility] Last Admin: 04/20/18 09:15 Dose: 200 mg - Objective Vital Signs: Vital Signs Temperature 95.7 F L 04/20/18 12:00 Pulse Rate 117 H 04/20/18 12:00 Respiratory Rate 27 H 04/20/18 10:00 Blood Pressure 116/83 04/20/18 12:00 O2 Sat by Pulse Oximetry (%) 100 04/20/18 08:00 Constitutional: Yes: Other (Intubated and sedated.) Eyes: Yes: PERRL Neck: Yes: Supple, Trachea Midline, Other (right subclavian in place.) Cardiovascular: Yes: Tachycardia. No: JVD, Gallop, Murmur, Rub Respiratory: Yes: Intubated, Mechanically Ventilated Gastrointestinal: Yes: Normal Bowel Sounds, Distention Extremities: No: Cyanosis, Deformity Edema: No Peripheral Pulses WNL: Yes Peripheral Pulses: Left Doralis Pedis: 2+, Right Dorsalis Pedis: 2+ Neurological: Yes: Other (myclonic jerks present.) Psychiatric: Yes: Other (sedated.) Labs: CBC, BMP 04/20/18 06:40 04/20/18 06:40 INR, PTT INR 1.09 (0.83-1.09) 04/20/18 06:40 - ....Imaging Chest X-ray: Report Reviewed, Image Reviewed X-ray: Report Reviewed, Image Reviewed Cat Scan: Report Reviewed, Image Reviewed EKG: Report Reviewed, Image Reviewed Assessment/Plan 48 yr old with unknown medical history BIBEMS s/p cardiac arrest in the field obtained ROSC in the ED found to have cocaine in his urine tox. PLAN NEURO: * sedated with Propofol and Versed * Fentanyl PRN * Will continue sedation during TTM * Neuro checks Q4H. * When TTM complete will hold all sedation to assess mental status. CV: * s/p cardiac arrest possibly 2/2 cocaine intoxication. * targeted temp management in progress. * will trend cardiac enzymes Q6H * repeat EKG in AM * Taper levophed ggt to maintain MAP >65 PULM: * CXR does not show acute pulmonary process. * Continue AC ventilatory support. * ABG 's Q6H * Settings- rate 20, TV 500, Fio2 60%, PEEP 5 ID: * Continue empiric antibiotcs. * Vanco and Zosyn IV. * Follow up blood and urine cultures. GI: * NPO for now * NG tube to wall suction in place * Will start enteral feeds once TTM completed. * Elevated LFT's most likely 2/2 hypoperfusion. ENDO: * No active issues * Initially suspicion for DKA however did not meet criteria * hypoglycemia improved with ISS. * BGM Q6H * WIll continue to cover with ISS RENAL: * JENNIFER most likely 2/2 ATN from hypoperfusion s/p cardiac arrest. * Will repeat BMP and continue to monitor * Continue IVF with NS @100 * Bicarb ggt stopped FEN: * NS @ 100ml/hr * Potassium 3.1 will replete and repeat labs. * NPO for now will start feeds once TTM completed FLD: * maintain hahn for accurate I/O's * Right subclavian central line in place. * NG tube set to low wall suction. PPx: * DVT- scd's bilat * GI: protonix 40 IV daily. DISPO: Continue to monitor in ICU. Critical Care Time/MDM Note Total Critical Care Time: 48 Critical Care Statement: The care of this patient involved high complexity decision making to prevent further life threatening deterioration of the patient 's condition and/or to evaluate & treat vital organ system(s) failure or risk of failure.
[2018-04-20] MEDS ORDERED: PANTOPRAZOLE 40 MG TABLET (FP) PO SCH (14:15)
[2018-04-20] MEDS ORDERED: INSULIN SLIDING SCALE (NOVOLOG) 1 VIAL SQ SCH ×2 (14:30)
--- NOTE | 2018-04-20 14:46 | ECHO ---
Name: MADISYN LIVE GARY Exam:Adult Echocardiogram Study Date: 04/20/2018 12:27 PM Age: 48 yrs Reason For Study: Cardiac arrest Height: 66 in Weight: 180 lb BSA: 1.9 m2 MMode/2D Measurements & Calculations IVSd: 1.3 cm Ao root diam: 2.3 cm LVIDd: 3.7 cm LA dimension: 2.5 cm LVIDs: 3.0 cm LVPWd: 1.1 cm EDV(Teich): 58.9 ml ESV(Teich): 34.5 ml Doppler Measurements & Calculations Med Peak E' João: 4.5 cm/sec Lat Peak E' João: 6.1 cm/sec Procedure The study was technically difficult with many images being suboptimal in quality. Left Ventricle The left ventricle is grossly normal size. The left ventricular ejection fraction is normal. Regional wall motion abnormalities cannot be excluded due to limited visualization. Right Ventricle The right ventricle is not well visualized. Atria The left atrium is not well visualized. Right atrium not well visualized. Mitral Valve The mitral valve is not well visualized. Tricuspid Valve The tricuspid valve is not well visualized. Aortic Valve The aortic valve is not well visualized. Pulmonic Valve The pulmonic valve is not well visualized. Great Vessels The aortic root is not well visualized. Interpretation Summary The study was technically difficult with many images being suboptimal in quality. The left ventricle is grossly normal size. The left ventricular ejection fraction is normal. Regional wall motion abnormalities cannot be excluded due to limited visualization. The left atrium is not well visualized. Right atrium not well visualized. The mitral valve is not well visualized. The tricuspid valve is not well visualized. The aortic valve is not well visualized. The pulmonic valve is not well visualized. The aortic root is not well visualized. MD Steven Cervantes 04/20/2018 02:46 PM
[2018-04-20 15:40] LABS: ANION GAP 19 MMOL/L (8-16); BLOOD UREA NITROGEN 17 mg/dL (7-18); CALCIUM 9.2 mg/dL (8.5-10.1); CHLORIDE 100 mmol/L (98-107); CO2 19 mmol/L (21-32); GLUCOSE,RANDOM 253 mg/dL (74-106); SODIUM 138 mmol/L (136-145)
[2018-04-20 15:47] LABS: POTASSIUM 2.8 mmol/L (3.5-5.1)
[2018-04-20] MEDS: POTASSIUM CHLORIDE 20 MEQ PREMIX IVPB 100 ML IVPB SCH ×2 (16:20→17:43)
--- NOTE | 2018-04-20 16:25 | PN ---
Teaching Attending Note Name of Resident: Nesha Rhodes ATTENDING PHYSICIAN STATEMENT I saw and evaluated the patient. I reviewed the resident's note and discussed the case with the resident. I agree with the resident's findings and plan as documented. SUBJECTIVE: unable to obtain OBJECTIVE: Last Vital Signs Temp Pulse Resp BP Pulse Ox 33.6 C L 113 H 37 H 126/92 100 04/20/18 17:00 04/20/18 17:00 04/20/18 17:00 04/20/18 17:00 04/20/18 08:00 Gen: obtunded, myoclonic jerks HEENT: pupils reactive to light Pulm: intubated and mechanically ventilated, ronchi bilaterally CV: tachycardic w/o m/r/g Abd: distended, hypoactive bowel sounds Ext: no c/c/e CBC, BMP 04/20/18 06:40 04/20/18 13:00 ASSESSMENT AND PLAN: -case d/w ICU team -cooling protocol -on levophed for blood pressure control -change clindamycin to vancomycin and zosyn -continue bicarb gtt currently -replace potassium -keppra for seizure ppx -trend troponin -trend lactic acid -very poor prognosis 40 minutes spent in critical care time with this patient Problem List - Problems (1) Lactic acidosis Code(s): E87.2 - ACIDOSIS (2) Toxic metabolic encephalopathy Code(s): G92 - TOXIC ENCEPHALOPATHY (3) Sepsis Code(s): A41.9 - SEPSIS, UNSPECIFIED ORGANISM (4) Acute respiratory failure with hypoxia Code(s): J96.01 - ACUTE RESPIRATORY FAILURE WITH HYPOXIA (5) Shock Code(s): R57.9 - SHOCK, UNSPECIFIED (6) NSTEMI (non-ST elevated myocardial infarction) Code(s): I21.4 - NON-ST ELEVATION (NSTEMI) MYOCARDIAL INFARCTION (7) Cocaine use Code(s): F14.90 - COCAINE USE, UNSPECIFIED, UNCOMPLICATED (8) Cardiac arrest Code(s): I46.9 - CARDIAC ARREST, CAUSE UNSPECIFIED
[2018-04-20] MEDS: PANTOPRAZOLE SODIUM 40 MG VIAL IVPUSH SCH (16:40)
[2018-04-20 17:34] LABS: ARTERIAL BLD GAS O2 SATURATION 99.1 % (90-98.9); ARTERIAL BLOOD GAS BASE EXCESS -8.8 meq/l (-2-2); ARTERIAL BLOOD GAS PCO2 29.4 mmHg (35-45); ARTERIAL BLOOD GAS pH 7.33 (7.35-7.45)
[2018-04-20 17:36] LABS: ALLENS TEST POSITIVE
[2018-04-20] MEDS: INSULIN SLIDING SCALE (NOVOLOG) 1 VIAL SQ SCH (18:19)
[2018-04-20 19:59] LABS: BASO % 0.1 % (0-2.0); HEMATOCRIT 51.7 % (35.4-49); HEMOGLOBIN 17.6 GM/dL (11.7-16.9); LYMPH % 8.8 % (8-40); MCH 30.5 pg (25.7-33.7); MEAN CELL VOLUME 89.7 fl (80-96); MEAN PLT VOLUME 8.8 fl (7.5-11.1); MONO % 4.9 % (3.8-10.2); NEUT % 86.2 % (42.8-82.8); PLATELET COUNT 204 K/MM3 (134-434); RBC 5.77 M/mm3 (4.00-5.60); RDW 13.4 % (11.9-15.9); WHITE BLOOD COUNT 12.8 K/mm3 (4.0-10.0)
[2018-04-20 20:14] LABS: ANION GAP 16 MMOL/L (8-16); BLOOD UREA NITROGEN 22 mg/dL (7-18); CALCIUM 8.7 mg/dL (8.5-10.1); CHLORIDE 105 mmol/L (98-107); CO2 17 mmol/L (21-32); CREATININE 3.4 mg/dL (0.55-1.3); GLUCOSE,RANDOM 204 mg/dL (74-106); POTASSIUM 4.8 mmol/L (3.5-5.1); SODIUM 138 mmol/L (136-145)
[2018-04-20] MEDS: PIPERACILLIN/TAZOB 3.375 GM 3.375 GM in DEXTROSE 5%-WATER - 50 ML IVPB SCH (21:24)
[2018-04-20] MEDS: CHLORHEXIDINE GLUCONATE 4% CLEANSER FOR DECOLONIZATION TP SCH (21:27)
[2018-04-20 23:30] LABS: PLATELET ESTIMATE ADEQUATE
[2018-04-21] MEDS ORDERED: DEXTROSE 5%-WATER - 50 ML IVPB ONE ×4 (01:52→20:34)
[2018-04-21] MEDS ORDERED: PIPERACILLIN/TAZOBACTAM 3.375 GM VIAL IVPB ONE ×2 (01:52→07:21)
[2018-04-21] MEDS: PIPERACILLIN/TAZOB 3.375 GM 3.375 GM in DEXTROSE 5%-WATER - 50 ML IVPB SCH ×2 (02:19→08:09)
[2018-04-21 06:21] LABS: ARTERIAL BLD GAS O2 SATURATION 99.1 % (90-98.9); ARTERIAL BLOOD GAS BASE EXCESS -8.3 meq/l (-2-2); ARTERIAL BLOOD GAS PCO2 26.1 mmHg (35-45); ARTERIAL BLOOD GAS pH 7.38 (7.35-7.45)
[2018-04-21 06:22] LABS: ALLENS TEST POSITIVE
[2018-04-21 06:25] LABS: BASO % 0.1 % (0-2.0); EOS % 0.1 % (0-4.5); HEMOGLOBIN 17.1 GM/dL (11.7-16.9); LYMPH % 10.8 % (8-40); MCH 31.1 pg (25.7-33.7); MCHC 34.8 g/dl (32.0-35.9); MEAN CELL VOLUME 89.4 fl (80-96); MEAN PLT VOLUME 9.7 fl (7.5-11.1); MONO % 6.1 % (3.8-10.2); NEUT % 82.9 % (42.8-82.8); PLATELET COUNT 169 K/MM3 (134-434); RBC 5.48 M/mm3 (4.00-5.60); RDW 13.4 % (11.9-15.9); WHITE BLOOD COUNT 9.9 K/mm3 (4.0-10.0)
[2018-04-21] MEDS: INSULIN SLIDING SCALE (NOVOLOG) 1 VIAL SQ SCH ×4 (06:50→17:14)
[2018-04-21 06:55] LABS: ALBUMIN 2.8 g/dl (3.4-5.0); ALK PHOS 76 U/L (45-117); ANION GAP 14 MMOL/L (8-16); BILIRUBIN,TOTAL 0.6 mg/dL (0.2-1); BLOOD UREA NITROGEN 28 mg/dL (7-18); CALCIUM 8.4 mg/dL (8.5-10.1); CHLORIDE 104 mmol/L (98-107); CO2 18 mmol/L (21-32); CREATININE 3.8 mg/dL (0.55-1.3); GLUCOSE,RANDOM 172 mg/dL (74-106); PHOSPHOROUS 5.8 mg/dL (2.5-4.9); POTASSIUM 4.8 mmol/L (3.5-5.1); SGOT/AST 339 U/L (15-37); SGPT/ALT 205 U/L (13-61); SODIUM 137 mmol/L (136-145); TOT PROT 6.2 g/dl (6.4-8.2)
[2018-04-21] MEDS: MIDAZOLAM 100 MG in SODIUM CHLORIDE 100 ML IVPB SCH ×3 (07:30→23:51)
[2018-04-21] MEDS ORDERED: MIDAZOLAM 100 MG/100 ML MG IVPB ONE ×2 (07:35→23:45)
[2018-04-21 07:36] LABS: INR 1.13 (0.83-1.09); PROTHROMBIN TIME (PATIENT) 13.4 SEC (9.7-13.0)
[2018-04-21 07:39] LABS: ACTIVATED PTT 27.2 SECONDS (25.2-36.5)
[2018-04-21] MEDS: NOREPINEPHRINE BITARTRATE 4,000 MCG in DEXTROSE 5%-WATER - 496 ML IV SCH (08:00)
[2018-04-21] MEDS: levETIRAcetam 500 MG/5 ML INJECTION VIAL IVPB SCH ×2 (09:30→21:04)
[2018-04-21] MEDS: PANTOPRAZOLE SODIUM 40 MG VIAL IVPUSH SCH (09:32)
[2018-04-21] MEDS: THIAMINE HCL 200 MG/2 ML VIAL IM SCH (09:32)
--- NOTE | 2018-04-21 09:42 | CONSULT ---
Consult - text type - Consultation Consultation Note: Neurology History of Present Illness - General Chief Complaint: Cardiac Arrest - History of Present Illness Initial Comments: 48 year old male BIBEMS after being found down in the [employer] [facility] on the floor soaked in water. Per EMS, the security at the hotel heard the patient screaming a few times and 10 minutes later they went to the patient's room and found him down on the floor soaked in water. EMS arrived on soon soon after and the patient was pulse-less, asystolic, and they began CPR. The patient was coded for approximately 30 minutes total and the only rhythms noted were v-tach which was shocked which converted to asystole. The patient arrived intubated and required cardiac resuscitation. Per ICU resident, patient may have required upwards of 30mins of resuscitation. Cocaine ended up returning positive so likely this was a cocaine related arrhythmia.Patient remains in ICU in cooling protocal. Off sedation this AM for exam and does have brainstem reflexes (pupil constriction to light, sluggish corneal, +gag). Would recommend EEG, likely to show encephalopathy but would like to confirm. He is having myoclonic jerks, likely 2/[address] head reviewed. Past History - Past Medical History Allergies/Adverse Reactions: Allergies Allergy/AdvReac Type Severity Reaction Status Date / Time No Allergy Information Allergy Verified 04/20/18 01:38 Available Active Medications Chlorhexidine Gluconate (Hibiclens For Decolonization -) 1 applic TP HS [facility] Last Admin: 04/20/18 21:27 Dose: 1 applic Folic Acid (Folic Acid Injection -) 1 mg SQ DAILY [facility] Last Admin: 04/20/18 12:40 Dose: Not Given Propofol (Diprivan -) 1,000,000 mcg in 100 mls @ 2.449 mls/hr IV TITR [facility]; Protocol Last Titration: 04/21/18 08:30 Dose: 0 mcg/kg/min, 0 mls/hr Norepinephrine Bitartrate 4, (000 mcg/ Dextrose) 500 mls @ 37.5 mls/hr IV TITR [facility]; Protocol Last Admin: 04/21/18 08:00 Dose: Not Given Midazolam HCl 100 mg/ Sodium (Chloride) 100 mls @ 1 mls/hr IVPB TITR [facility]; Protocol Last Titration: 04/21/18 08:30 Dose: 0 mg/hr, 0 mls/hr Sodium Chloride (Normal Saline -) 1,000 mls @ 100 mls/hr IV ASDIR [facility] [place] Last Admin: 04/20/18 12:25 Dose: 100 mls/hr Piperacillin Sod/Tazobactam (Sod 3.375 gm/ Dextrose) 50 mls @ 100 mls/hr IVPB Q6H-IV [facility]; Protocol Last Admin: 04/21/18 08:09 Dose: 100 mls/hr Insulin Aspart (Novolog Vial Sliding Scale -) 1 vial SQ Q6H [facility] [place]; Protocol Last Admin: 04/21/18 06:50 Dose: 2 units Levetiracetam (Keppra Injection -) 500 mg IVPB BID [facility] Last Admin: 04/21/18 09:30 Dose: 500 mg Mupirocin (Bactroban Ointment (For Decolonization) -) 1 applic NS BID [facility] [place] Stop: 04/25/18 09:59 Last Admin: 04/20/18 21:27 Dose: 1 applic Pantoprazole Sodium (Protonix Iv) 40 mg IVPUSH DAILY [facility] [place] Last Admin: 04/21/18 09:32 Dose: 40 mg Thiamine HCl (Vitamin B1 Injection -) 200 mg IM DAILY [facility] [place] Last Admin: 04/21/18 09:32 Dose: 200 mg Review of Systems - Review of Systems Able to Perform ROS?: No (Intubated, post arrest) Is the patient limited Romanian proficient: Yes *Physical Exam Vital Signs Period Temp Pulse Resp BP Sys/Boykin Pulse Ox Last 24 Hr 90.2 F-95.7 F 87-120 20-39 101-133/64-100 100 - Physical Exam General Appearance: Yes: Nourished, Other (intubated, sedated but no sign of trauma or obvious deformity). No: Disheveled, Alcohol on Breath HEENT: negative: EOMI, MORRO (widened and non reactive), Normal ENT Inspection ( ET tube in place but no other sign of trauma.) Neck: positive: Trachea midline, Supple Respiratory/Chest: positive: Lungs Clear. negative: Normal Breath Sounds ( mechanical breath sounds) Cardiovascular: negative: Regular Rhythm, Regular Rate (tachycardia with premature beats) Gastrointestinal/Abdominal: positive: Normal Bowel Sounds, Flat, Soft. negative : Pulsatile Mass Male Genitalia: positive: normal genitalia. negative: hematuria Musculoskeletal: positive: Other. negative: Normal Inspection (intubated and sedated, flaccid without obvious defomrity or sign of trauma.) Extremity: positive: Normal Capillary Refill, Normal Inspection, Normal Range of Motion (normal passsive range of motion, not actively moving) Integumentary: positive: Normal Color, Dry, Cold. negative: Warm Neurologic: Pupil response +, sluggish corneal, + gag, myoclonic jerks, not following commands CBCD WBC 9.9 K/mm3 (4.0-10.0) 04/21/18 05:30 RBC 5.48 M/mm3 (4.00-5.60) 04/21/18 05:30 Hgb 17.1 GM/dL (11.7-16.9) H 04/21/18 05:30 Hct 49.0 % (35.4-49) 04/21/18 05:30 MCV 89.4 fl (80-96) 04/21/18 05:30 MCHC 34.8 g/dl (32.0-35.9) 04/21/18 05:30 RDW 13.4 % (11.9-15.9) 04/21/18 05:30 Plt Count 169 K/MM3 (134-434) 04/21/18 05:30 MPV 9.7 fl (7.5-11.1) D 04/21/18 05:30 CMP Sodium 137 mmol/L (136-145) 04/21/18 05:30 Potassium 4.8 mmol/L (3.5-5.1) 04/21/18 05:30 Chloride 104 mmol/L (98-107) 04/21/18 05:30 Carbon Dioxide 18 mmol/L (21-32) L 04/21/18 05:30 Anion Gap 14 MMOL/L (8-16) 04/21/18 05:30 BUN 28 mg/dL (7-18) H 04/21/18 05:30 Creatinine 3.8 mg/dL (0.55-1.3) H 04/21/18 05:30 Creat Clearance w eGFR 17.24 (>60) 04/21/18 05:30 Random Glucose 172 mg/dL (74-106) H 04/21/18 05:30 Calcium 8.4 mg/dL (8.5-10.1) L 04/21/18 05:30 Total Bilirubin 0.6 mg/dL (0.2-1) 04/21/18 05:30 AST 339 U/L (15-37) H 04/21/18 05:30 ALT 205 U/L (13-61) H 04/21/18 05:30 Alkaline Phosphatase 76 U/L (45-117) 04/21/18 05:30 Total Protein 6.2 g/dl (6.4-8.2) L 04/21/18 05:30 Albumin 2.8 g/dl (3.4-5.0) L 04/21/18 05:30 CARDIAC ENZYMES Creatine Kinase 3853 U/L (26-308) H 04/20/18 06:40 Troponin I 13.20 ng/ml (0.00-0.05) H* 04/20/18 19:00 Plan: 48 year old male BIBEMS after being found down in the [employer] [facility] on the floor soaked in water. Per EMS, the security at the hotel heard the patient screaming a few times and 10 minutes later they went to the patient's room and found him down on the floor soaked in water. EMS arrived on soon soon after and the patient was pulse-less, asystolic, and they began CPR. The patient was coded for approximately 30 minutes total and the only rhythms noted were v-tach which was shocked which converted to asystole. The patient arrived intubated and required cardiac resuscitation. Per ICU resident, patient may have required upwards of 30mins of resuscitation. Patient remains in ICU in cooling protocal. Off sedation this AM for exam and does have brainstem reflexes (pupil constriction to light, sluggish corneal, +gag). Would recommend EEG, likely to show encephalopathy but would like to confirm. He is having myoclonic jerks, likely 2/[address] head reviewed with mention of subtle edema, would recommend repeat to evaluate further structural changes. Discussed with ICU resident, critical carem 40 mins.
[2018-04-21] MEDS: PROPOFOL 1,000,000 MCG/100 ML VIAL IV SCH ×2 (10:01→23:52)
[2018-04-21] MEDS: MUPIROCIN 2% TOPICAL OINTMENT FOR DECOLONIZATION NS SCH ×2 (10:02→22:33)
[2018-04-21] MEDS: SODIUM CHLORIDE 1,000 ML IV SCH ×2 (10:04→13:05)
[2018-04-21] MEDS ORDERED: PT OWN MED DRAWER 7, Y5N ONE (10:04)
--- NOTE | 2018-04-21 11:14 | PN ---
Physical Exam: SUBJECTIVE: Patient seen and examined by me at bedside No acute events overnight Patient having myoclonic jerks Plans for EEG and Repeat head CT OBJECTIVE: Vital Signs Period Temp Pulse Resp BP Sys/Boykin Pulse Ox Last 24 Hr 90.2 F-98.2 F 87-136 20-39 99-133/64-100 97-100 GENERAL: Intubated and sedated. EYES: PERRL ENT: ET tube placed LUNGS: On ventilator. breath sounds anteriorly HEART: Tachycardic with regular rhythm, normal s1 and s2, without murmur, rub or gallop. ABDOMEN: Soft, nontender, (+) distended, decreased bowel sounds, no guarding, no rebound EXTREMITIES: No edema. NEUROLOGICAL: unable to assess SKIN: Warm, dry, normal turgor, no rashes or lesions noted LINES: (+) Carr with yellow urine (+) NG tube with brown coffee ground emesis (+) ET tube VENT SETTINGS: tv-500, peep-5, Fi02- 60%, RR 18 Laboratory Results 04/21/18 05:30 04/21/18 05:30 04/20/18 04/21/18 19:00 05:30 Phosphorus 5.8 H Magnesium 5.0 H Total Bilirubin 0.6 AST 339 H ALT 205 H Troponin I 13.20 H* ABG pH 7.38 (7.35-7.45) 04/21/18 06:30 ABG pCO2 at Pt Temp 26.1 mmHg (35-45) L 04/21/18 06:30 ABG pO2 at Pt Temp 171.0 mmHg (80-100) H* 04/21/18 06:30 ABG HCO3 15.9 meq/L (22-26) L 04/21/18 06:30 ABG O2 Sat (Measured) 99.1 % (90-98.9) H 04/21/18 06:30 ABG O2 Content 23.9 % vol (15-22) H 04/21/18 06:30 ABG Base Excess -8.3 meq/l (-2-2) L 04/21/18 06:30 Active Medications Generic Name Dose Route Start Last Admin Trade Name Freq PRN Reason Stop Dose Admin Chlorhexidine Gluconate 1 applic 04/20/18 22:00 04/20/18 21:27 Hibiclens For Decolonization - TP 1 applic HS [facility] Administration Folic Acid 1 mg 04/20/18 05:17 04/20/18 12:40 Folic Acid Injection - SQ Not Given DAILY [facility] Propofol 1,000,000 mcg in 100 mls @ 2.449 mls/hr 04/20/18 07:45 04/21/18 10: 01 Diprivan - IV 15 mcg/kg/min TITR [facility] 7.348 mls/hr Administration Protocol 5 MCG/KG/MIN Norepinephrine Bitartrate 4, 500 mls @ 37.5 mls/hr 04/20/18 08:00 04/21/18 08 :00 000 mcg/ Dextrose IV Not Given TITR [facility] Protocol 5 MCG/MIN Midazolam HCl 100 mg/ Sodium 100 mls @ 1 mls/hr 04/20/18 09:45 04/21/18 09:54 Chloride IVPB 6 mg/hr TITR [facility] 6 mls/hr Administration Protocol 1 MG/HR Sodium Chloride 1,000 mls @ 100 mls/hr 04/20/18 11:30 04/21/18 10:04 Normal Saline - IV 100 mls/hr ASDIR [facility] Administration Piperacillin Sod/Tazobactam 50 mls @ 100 mls/hr 04/20/18 21:00 04/21/18 08:09 Sod 3.375 gm/ Dextrose IVPB 100 mls/hr Q6H-IV [facility] Administration Protocol Insulin Aspart 1 vial 04/20/18 18:00 04/21/18 06:50 Novolog Vial Sliding Scale - SQ 2 units Q6H [facility] Administration Protocol Levetiracetam 500 mg 04/20/18 12:00 04/21/18 09:30 Keppra Injection - IVPB 500 mg BID [facility] Administration Mupirocin 1 applic 04/20/18 10:00 04/21/18 10:02 Bactroban Ointment (For Decolonization) - NS 04/25/18 09:59 1 applic BID [facility] Administration Pantoprazole Sodium 40 mg 04/20/18 14:30 04/21/18 09:32 Protonix Iv IVPUSH 40 mg DAILY [facility] Administration Thiamine HCl 200 mg 04/20/18 05:16 04/21/18 09:32 Vitamin B1 Injection - IM 200 mg DAILY [facility] Administration ASSESSMENT/PLAN: Patient is a 48 year old male who presented with Cardiac Arrest (PE, Asystole, VF) after being found in a [place]el last night. Patient was found to have severe metabolic acidosis and positive cocaine in his urine. S/P Cardiac Arrest -Possibly secondary to cocaine use or infectious vs metabolic etiology -Patient found to have Hyperglycemia with anion gap and metabolic acidosis -Off sedation and pressors for plans to have EEG and Head CT -Continue IV antibiotics with Zosyn, renally dosed -ASA and BB to be started, as per ICU team Severe Metabolic Acidosis with AG and Lactic Acidosis -Improving -Likely s/p cardiac arrest -No longer on cardiac drip -Remains intubated and sedated -Trend ABG's Anoxic Brain Injury -Reported he was down for 30 minutes -Neuro wants patient off sedation to have EEG done -Repeat Head CT -Seizure prophylaxis with Keppra 500mg BID Hyperglycemia -Improving -A1C 5.7 -BGM -ISS Transaminitis -Continues to trend up -Shock liver likely from cardiac arrest Elevated Troponins -Continues to increase >13 today -Will start on ASA and BB -Continue to trend Elevated CK -Possibly from Rhabdo and cardiac arrest JENNIFER Likely from hypovolemia -Continue IV hydration -Renal consult in Cocaine Use -(+) cocaine in urine -Avoid BB F/E/N -On bicarb -hypokalemia. repeat and replete -NPO Prophylaxis -SCD'S for DVT -Protonix for GI Disposition -Full code -ICU Monitoring Nesha Rhodes [id number] Visit type - Emergency Visit Emergency Visit: Yes ED Registration Date: 04/20/18 Care time: The patient presented to the Emergency Department on the above date and was hospitalized for further evaluation of their emergent condition. - New Patient This patient is new to me today: No - Critical Care Critical Care patient: Yes Total Critical Care Time (in minutes): 45 Critical Care Statement: The care of this patient involved high complexity decision making to prevent further life threatening deterioration of the patient 's condition and/or to evaluate & treat vital organ system(s) failure or risk of failure.
[2018-04-21] MEDS ORDERED: ASPIRIN COATED 81 MG TABLET.EC PO SCH (11:15)
[2018-04-21] MEDS ORDERED: METOPROLOL TARTRATE 25 MG TABLET (FP) PO SCH (11:45)
[2018-04-21] MEDS ORDERED: METOPROLOL TARTRATE 5 MG/5 ML VIAL IVPUSH SCH (12:00)
[2018-04-21] MEDS: FOLIC ACID 5 MG/1 ML SQ SCH (12:10)
--- NOTE | 2018-04-21 12:15 | PN ---
Teaching Attending Note Name of Resident: Em Godwin ATTENDING PHYSICIAN STATEMENT I saw and evaluated the patient. I reviewed the resident's note and discussed the case with the resident. I agree with the resident's findings and plan as documented. SUBJECTIVE: Pt seen and examined in the ICU. Remains intubated, unresponsive off sedation. Myoclonic jerks off sedation. Off pressors. Hypothermia protocol completed, now being passively rewarmed. OBJECTIVE: Vital Signs Period Temp Pulse Resp BP Sys/Boykin Pulse Ox Last 24 Hr 90.2 F-98.2 F 87-136 20-38 99-133/64-100 97-100 Intake & Output 04/18/18 04/19/18 04/20/18 04/21/18 23:59 23:59 23:59 23:59 Intake Total 2283 1153 Output Total 1450 3300 Balance 833 -2147 Weight 81.647 kg Gen: intubated, unresponsive Heart: RRR Lung: scattered rhonchi Abd: soft, nontender Ext: no edema CBC, BMP 04/21/18 05:30 04/21/18 05:30 Active Medications Aspirin (Ecotrin -) 81 mg PO DAILY [facility] Chlorhexidine Gluconate (Hibiclens For Decolonization -) 1 applic TP HS [facility] Last Admin: 04/20/18 21:27 Dose: 1 applic Folic Acid (Folic Acid Injection -) 1 mg SQ DAILY [facility] Last Admin: 04/20/18 12:40 Dose: Not Given Heparin Sodium (Porcine) (Heparin -) 5,000 unit SQ TID [facility] Propofol (Diprivan -) 1,000,000 mcg in 100 mls @ 2.449 mls/hr IV TITR [facility]; Protocol Last Admin: 04/21/18 10:01 Dose: 15 mcg/kg/min, 7.348 mls/hr Norepinephrine Bitartrate 4, (000 mcg/ Dextrose) 500 mls @ 37.5 mls/hr IV TITR [facility]; Protocol Last Admin: 04/21/18 08:00 Dose: Not Given Midazolam HCl 100 mg/ Sodium (Chloride) 100 mls @ 1 mls/hr IVPB TITR [facility]; Protocol Last Admin: 04/21/18 09:54 Dose: 6 mg/hr, 6 mls/hr Sodium Chloride (Normal Saline -) 1,000 mls @ 100 mls/hr IV ASDIR [facility] Last Admin: 04/21/18 10:04 Dose: 100 mls/hr Piperacillin Sod/Tazobactam (Sod 2.25 gm/ Dextrose) 50 mls @ 100 mls/hr IVPB Q6H-IV [facility]; Protocol Insulin Aspart (Novolog Vial Sliding Scale -) 1 vial SQ Q6H [facility]; Protocol Last Admin: 04/21/18 06:50 Dose: 2 units Levetiracetam (Keppra Injection -) 500 mg IVPB BID [facility] Last Admin: 04/21/18 09:30 Dose: 500 mg Metoprolol Tartrate (Lopressor Injection -) 5 mg IVPUSH Q6H [facility] Mupirocin (Bactroban Ointment (For Decolonization) -) 1 applic NS BID [facility] Stop: 04/25/18 09:59 Last Admin: 04/21/18 10:02 Dose: 1 applic Pantoprazole Sodium (Protonix Iv) 40 mg IVPUSH DAILY [facility] Last Admin: 04/21/18 09:32 Dose: 40 mg Thiamine HCl (Vitamin B1 Injection -) 200 mg IM DAILY [facility] Last Admin: 04/21/18 09:32 Dose: 200 mg ASSESSMENT AND PLAN: s/p Cardiopulmonary Arrest on Hypothermia Protocol r/o Anoxic Encephalopathy r/o Acute DC Cocaine Use Shock - Septic vs Cardiogenic Severe Metabolic Acidosis improving Hyperglycemia improving Elevated LFTs likely Ischemic Injury Acute Kidney Injury - hypothermia protocol completed - trend cardiac enzymes, lactate, EKGs - echocardiogram nondiagnostic - trend LFTs - IVF - monitoring off pressors, maintain MAP >65 - monitor urine output, creatinine - empiric antibiotics - f/u cultures - versed gtt, empiric antiepileptics for jerks - sedate for vent synchrony - continue volume assist control - enteral feeds - DVT/GI prophylaxis - continue ICU monitoring - poor overall prognosis critical care time spent in reviewing chart, evaluating patient and formulating plan 35 min
--- NOTE | 2018-04-21 12:23 | EKG ---
Test Reason : Blood Pressure : / mmHG Vent. Rate : 105 BPM Atrial Rate : 105 BPM P-R Int : 000 ms QRS Dur : 116 ms QT Int : 396 ms P-R-T Axes : -11 -72 176 degrees QTc Int : 523 ms SINUS TACHYCARDIA LEFT AXIS DEVIATION MARKED ST ABNORMALITY, POSSIBLE INFERIOR SUBENDOCARDIAL INJURY MARKED ST ABNORMALITY, POSSIBLE ANTEROSEPTAL SUBENDOCARDIAL INJURY PROLONGED QT ABNORMAL ECG NO PREVIOUS ECGS AVAILABLE Confirmed by CRISTIANA LIPSCOMB, GRAYSON ([id number]) on 04/21/2018 12:23:13 PM Referred By: Confirmed By:GRAYSON ZENDEJAS MD
[2018-04-21] MEDS ORDERED: PIPERACILLIN/TAZOBACTAM 2.25 GM VIAL IVPB ONE ×2 (13:01→20:34)
[2018-04-21] MEDS: HEPARIN NA (PORCINE) 5,000 UNITS/ML 1ML VIAL SQ SCH ×2 (13:07→21:05)
--- NOTE | 2018-04-21 13:18 | PN ---
Teaching Attending Note Name of Resident: Nesha Rhodes ATTENDING PHYSICIAN STATEMENT I saw and evaluated the patient. I reviewed the resident's note and discussed the case with the resident. I agree with the resident's findings and plan as documented. SUBJECTIVE: unable to obtain, obtunded OBJECTIVE: Last Vital Signs Temp Pulse Resp BP Pulse Ox 38.4 C H 126 H 28 H 102/79 98 04/21/18 17:00 04/21/18 17:00 04/21/18 17:00 04/21/18 17:00 04/21/18 17:37 Gen: obtunded Pulm: intubated and mechanically ventilated, tachypneic CV: tachy but regular w/o m/r/g Abd: hypoactive bs, distended Ext: no c/c/e CBC, BMP 04/21/18 05:30 04/21/18 05:30 ASSESSMENT AND PLAN: -case d/w ICU and neurology -repeat head CT and EEG -will check ammonia level as well to rule out hepatic encephalopathy -cardiology consulted, troponins elevated from both resuscitation and NSTEMI -placed on aspirin and metoprolol -monitor renal function, if has hyperkalemia will consult nephrology -continue hydration -continue antibiotics -placed on keppra for seizure ppx -poor prognosis 37 minutes spent in critical care time with this patient Problem List - Problems (1) Lactic acidosis Code(s): E87.2 - ACIDOSIS (2) Toxic metabolic encephalopathy Code(s): G92 - TOXIC ENCEPHALOPATHY (3) Sepsis Code(s): A41.9 - SEPSIS, UNSPECIFIED ORGANISM (4) Acute respiratory failure with hypoxia Code(s): J96.01 - ACUTE RESPIRATORY FAILURE WITH HYPOXIA (5) Shock Code(s): R57.9 - SHOCK, UNSPECIFIED (6) NSTEMI (non-ST elevated myocardial infarction) Code(s): I21.4 - NON-ST ELEVATION (NSTEMI) MYOCARDIAL INFARCTION (7) Cocaine use Code(s): F14.90 - COCAINE USE, UNSPECIFIED, UNCOMPLICATED (8) Cardiac arrest Code(s): I46.9 - CARDIAC ARREST, CAUSE UNSPECIFIED
[2018-04-21] MEDS ORDERED: ACETAMINOPHEN 1000 MG/100 ML VIAL (NON FORMULARY) IVPB PRN (13:36)
[2018-04-21] MEDS ORDERED: METOPROLOL TARTRATE 5 MG/5 ML VIAL IVPUSH ONE (13:45)
--- NOTE | 2018-04-21 14:30 | PN ---
Progress Note (short form) - Note Progress Note: SUBJECTIVE Patient seen and examined at the bedside. Intubated and sedated. OBJECTIVE Vital Signs Temperature 98.2 F 04/21/18 10:00 Pulse Rate 150 H 04/21/18 13:06 Respiratory Rate 30 H 04/21/18 12:10 Blood Pressure 114/88 04/21/18 13:06 O2 Sat by Pulse Oximetry (%) 97 04/21/18 10:00 General: Intubated Head: No signs of trauma Eyes: Sclera anicteric ENT: Moist mucus membranes Neck: Supple Lungs: Scattered rhonchi Cardio: Regular rhythm, S1 and S2 present Abdomen: Soft, distended Extremities: Distal pulses present SKIN: Warm, Dry, normal turgor Neurologic: Sedated ASSESSMENT 48 yr old with unknown medical history BIBEMS s/p cardiac arrest in the field obtained ROSC in the ED found to have cocaine in his urine tox. Now HOD #2 PLAN NEURO Sedated with Propofol and Versed Trial of held sedation this AM: patient with myoclonic jerking Neuro checks Q4H. EEG, repeat CT head, per neuro Will hold sedation periodically to assess mental status Empiric antiepileptics CV s/p cardiac arrest possibly 2/2 cocaine intoxication. Targeted temp management, raising back to normal temperature Trend cardiac enzymes No longer on pressors Metoprolol for cardioprotection PULM CXR does not show acute pulmonary process. Continue AC ventilatory support. Settings- rate 18 (from 20), TV 500, Fio2 60%, PEEP 5 ID Continue empiric antibiotics. Renal dose of Zosyn Follow up blood and urine cultures GI NPO for now NG tube to wall suction in place Will consider enteral feeds for tomorrow Elevated LFT's most likely 2/2 hypoperfusion ENDO No active issues Initially suspicion for DKA however did not meet criteria Hypoglycemia improved with ISS. BGM Q6H WIll continue to cover with ISS RENAL JENNIFER most likely 2/2 ATN from hypoperfusion s/p cardiac arrest. Will repeat BMP and continue to monitor Continue IVF with NS @100 Bicarb ggt stopped FEN NS @ 100ml/hr Potassium 3.1 will replete and repeat labs. NPO for now; Will consider enteral feeds tomorrow FLD Maintain hahn for accurate I/O's Right subclavian central line in place. NG tube set to low wall suction. PPx DVT- Heparin GI: protonix 40 IV daily. DISPO: Continue to monitor in ICU.
[2018-04-21] MEDS: NOREPINEPHRINE BITARTRATE 8,000 MCG in DEXTROSE 5%-WATER - 492 ML IV SCH (15:15)
[2018-04-21] MEDS: PIPERACILLIN/TAZOB 2.25 GM 2.25 GM in DEXTROSE 5%-WATER - 50 ML IVPB SCH ×2 (15:26→21:04)
[2018-04-21] MEDS ORDERED: NOREPINEPHRINE BITARTRATE 4 MG/4 ML ML IV ONE (15:34)
[2018-04-21] MEDS ORDERED: SODIUM CHLORIDE 500 ML IV STA (16:38)
--- NOTE | 2018-04-21 16:39 | CON.CARD ---
Consult Consult Specialty:: cardiology Reason for Consultation:: cardiac arrest - History of Present Illness Chief Complaint: Pt is intubated; unresponsive. History of Present Illness: The patient is a 48 year old male, with unknown significant past medical history , who presents to the emergency department via EMS unresponsive. Pt had arrived in this country from the [place] a few days ago. As per EMS, who arrived at the [facility] on [facility] at 12:31am and the patient was unresponsive in cardiac arrest. The call to EMS was made by security after hearing an individual call for help approximately 5 times. While at the scene the patient was outside of the bathroom soaking wet, there was no sign of another person with him, a box of enemas and gloves were located in the fridge, and multiple chicken bones placed in the bathtub. EMS notes no medications or drugs were noted at the scene. EMS arrived to the ED at 1:07am after administering 5 of Epi and 4mg of Narcan, a 7.5 tube was placed, and Blane in place. 1:12am- the patient was administered epi and on bedside ultrasound patient had cardiac motility (PEA). Pt has now tested positive for cocaine. - History Source History Provided By: Medical Record Limitations to Obtaining History: Unresponsive - Alcohol/Substance Use Hx Alcohol Use: No - Smoking History Smoking history: Unknown if ever smoked Home Medications - Allergies Allergies/Adverse Reactions: Allergies Allergy/AdvReac Type Severity Reaction Status Date / Time No Allergy Information Allergy Verified 04/20/18 01:38 Available - Home Medications Home Medications: Ambulatory Orders Unobtainable 04/20/18 Family Disease History - Family Disease History Family History: Unable to Obtain Review of Systems Unable to obtain ROS, reason: intubated; unresponsive - Risk Factors Known Risk Factors: Yes: Age, Gender, Other Vital Signs: Vital Signs Temperature 103 F H 04/21/18 16:00 Pulse Rate 137 H 04/21/18 16:00 Respiratory Rate 32 H 04/21/18 16:00 Blood Pressure 111/78 04/21/18 16:00 O2 Sat by Pulse Oximetry (%) 97 04/21/18 10:00 Constitutional: Yes: Other Eyes: Yes: Other (mild pupil response to light) Neck: Yes: Other Respiratory: Yes: Intubated, Mechanically Ventilated Gastrointestinal: Yes: Distention Renal/: Yes: Oliguria Cardiovascular: Yes: Tachycardia JVD: No Carotid Bruit: No PMI: Non-Displaced Heart Sounds: Yes: S1, S2 Musculoskeletal: Yes: Muscle Weakness Extremities: Yes: Cool Edema: No Peripheral Pulses WNL: No Peripheral Pulses: 1+ Left Doralis Pedis, 1+ Right Dorsalis Pedis Neurological: Yes: Unresponsive - Other Data Labs, Other Data: CBC, BMP 04/21/18 05:30 04/21/18 05:30 INR, PTT INR 1.13 (0.83-1.09) H 04/21/18 05:30 Troponin, BNP 04/20/18 04/20/18 04/21/18 13:00 19:00 05:30 Troponin I 19.60 H* 13.20 H* 5.95 H* Troponin, BNP 04/20/18 04/20/18 04/21/18 13:00 19:00 05:30 Troponin I 19.60 H* 13.20 H* 5.95 H* Abnormal Lab Results 04/20/18 04/20/18 04/21/18 13:00 19:00 05:30 Hgb Absolute Neuts (auto) Neutrophils % PT with INR INR ABG pCO2 at Pt Temp ABG pO2 at Pt Temp ABG HCO3 ABG O2 Sat (Measured) ABG O2 Content ABG Base Excess Potassium 2.8 L* Carbon Dioxide 19 L 17 L 18 L Anion Gap 19 H BUN 22 H 28 H Creatinine 3.0 H 3.4 H 3.8 H Random Glucose 253 H 204 H 172 H Lactic Acid Calcium 8.4 L Phosphorus 5.8 H Magnesium 5.0 H AST 339 H ALT 205 H Creatine Kinase 5361 H 5596 H 3365 H Creatine Kinase Index 5.3 H CK-MB (CK-2) 190.1 H 217.3 H 181.1 H Troponin I 5.95 H* Total Protein 6.2 L Albumin 2.8 L 04/21/18 04/21/18 04/21/18 05:30 05:30 06:30 Hgb 17.1 H Absolute Neuts (auto) 8.2 H Neutrophils % 82.9 H PT with INR 13.40 H INR 1.13 H ABG pCO2 at Pt Temp 26.1 L ABG pO2 at Pt Temp 171.0 H* ABG HCO3 15.9 L ABG O2 Sat (Measured) 99.1 H ABG O2 Content 23.9 H ABG Base Excess -8.3 L Potassium Carbon Dioxide Anion Gap BUN Creatinine Random Glucose Lactic Acid Calcium Phosphorus Magnesium AST ALT Creatine Kinase Creatine Kinase Index CK-MB (CK-2) Troponin I Total Protein Albumin 04/21/18 04/21/18 15:00 15:00 Hgb Absolute Neuts (auto) Neutrophils % PT with INR INR ABG pCO2 at Pt Temp ABG pO2 at Pt Temp ABG HCO3 ABG O2 Sat (Measured) ABG O2 Content ABG Base Excess Potassium Carbon Dioxide Anion Gap BUN Creatinine Random Glucose Lactic Acid 3.7 H* Calcium Phosphorus Magnesium AST ALT Creatine Kinase 2169 H Creatine Kinase Index CK-MB (CK-2) 87.0 H Troponin I Total Protein Albumin Echo: Report Reviewed (limited study; grossly normal LVEF) Ejection Fraction %: LVEF > or = 40 % Imaging - Results Chest X-ray: Image Reviewed EKG: Image Reviewed (sinus tachycardia; marked STT abnormalities: r/o inferior and anterior subendocardial injury) Problem List - Problems (1) Acute respiratory failure with hypoxia Code(s): J96.01 - ACUTE RESPIRATORY FAILURE WITH HYPOXIA (2) Cardiac arrest Assessment/Plan: see "NSVT" Code(s): I46.9 - CARDIAC ARREST, CAUSE UNSPECIFIED (3) Cocaine use Code(s): F14.90 - COCAINE USE, UNSPECIFIED, UNCOMPLICATED (4) NSTEMI (non-ST elevated myocardial infarction) Assessment/Plan: NSTEMI, likely cocaine-induced. ECHO: limited study: grossly normal LVEF; unable to assess regional wall motion. oliguric; worsening renal function. Plan: Hydration; give 500 ml bolus now, then continue IVF hourly; monitor Is and Os, BUN/Cr, CK. ASA 325 mg once, then 81-162 mg daily. DO NOT give beta blockers. IV heparin. Start statin if LFTs decrease. Benzodiazapine (on Versed). Unable to use vasodilators or afterload reducers presently (hypotension requiring norepinephrine). Code(s): I21.4 - NON-ST ELEVATION (NSTEMI) MYOCARDIAL INFARCTION (5) Toxic metabolic encephalopathy Code(s): G92 - TOXIC ENCEPHALOPATHY (6) Renal dysfunction Code(s): N28.9 - DISORDER OF KIDNEY AND URETER, UNSPECIFIED (7) Elevated LFTs Code(s): R94.5 - ABNORMAL RESULTS OF LIVER FUNCTION STUDIES (8) Sepsis Code(s): A41.9 - SEPSIS, UNSPECIFIED ORGANISM Assessment/Plan CCU time spent evaluating pt and formulating plan: 70 mnutes.
[2018-04-21] MEDS: CALCIUM ACETATE 667 MG CAPSULE (FP) PO SCH (17:14)
--- NOTE | 2018-04-21 18:43 | CON.ID ---
Consult Consult Specialty:: infectious diseases Referred by:: hospitalist Reason for Consultation:: sepsis - History of Present Illness Chief Complaint: unable History of Present Illness: 48 y/o male, from the [place] with unknown PMH presented to the ED after having a cardiac arrest. Patient was at the [facility] when he began screaming, security came up and patient was found face down, soaking wet, for an unknown amount of time. Found at the scene were enemas and a chicken bone in the bathtub, however, no drugs were found at the scene- patient was alone. EMS was called and on route patient was given 4 mg epi and 7 of narcan and arrived by 1:07 to the ED. police was contacted (please see ED note for all further noes), patient was Vfib, PEA, asystole. [place] police dept was contacted by EMS , they were aware of the arrest. above history taken from the charts as the patient is intubated and on ventilatory - History Source History Provided By: Medical Record - Alcohol/Substance Use Hx Alcohol Use: No - Smoking History Smoking history: Unknown if ever smoked Home Medications - Allergies Allergies/Adverse Reactions: Allergies Allergy/AdvReac Type Severity Reaction Status Date / Time No Allergy Information Allergy Verified 04/20/18 01:38 Available - Home Medications Home Medications: Ambulatory Orders Unobtainable 04/20/18 Review of Systems Unable to obtain ROS, reason: unable to obtain Physical Exam Vital Signs: Vital Signs Temperature 101.2 F H 04/21/18 17:00 Pulse Rate 126 H 04/21/18 17:00 Respiratory Rate 28 H 04/21/18 17:00 Blood Pressure 102/79 04/21/18 17:00 O2 Sat by Pulse Oximetry (%) 98 04/21/18 17:37 Constitutional: Yes: Other HENT: Yes: Other Cardiovascular: Yes: Regular Rate and Rhythm, Other Respiratory: Yes: Intubated, Mechanically Ventilated Gastrointestinal: Yes: Normal Bowel Sounds Musculoskeletal: Yes: Other Neurological: Yes: Other Labs: CBC, BMP 04/21/18 05:30 04/21/18 05:30 Imaging - Results Chest X-ray: Report Reviewed, Image Reviewed X-ray: Report Reviewed, Image Reviewed Cat Scan: Report Reviewed, Image Reviewed Assessment/Plan Problem List - Problems (1) Lactic acidosis Code(s): E87.2 - ACIDOSIS (2) Toxic metabolic encephalopathy Code(s): G92 - TOXIC ENCEPHALOPATHY (3) Sepsis Code(s): A41.9 - SEPSIS, UNSPECIFIED ORGANISM (4) Acute respiratory failure with hypoxia Code(s): J96.01 - ACUTE RESPIRATORY FAILURE WITH HYPOXIA (5) Shock Code(s): R57.9 - SHOCK, UNSPECIFIED (6) NSTEMI (non-ST elevated myocardial infarction) Code(s): I21.4 - NON-ST ELEVATION (NSTEMI) MYOCARDIAL INFARCTION (7) Cocaine use Code(s): F14.90 - COCAINE USE, UNSPECIFIED, UNCOMPLICATED (8) Cardiac arrest Code(s): I46.9 - CARDIAC ARREST, CAUSE UNSPECIFIED plan aspiration prevention continue abx aspiration precautions resp support await for all cx reports rest as per icu 45 min cc
[2018-04-21] MEDS: CHLORHEXIDINE GLUCONATE 4% CLEANSER FOR DECOLONIZATION TP SCH (22:33)
[2018-04-22] MEDS ORDERED: ASPIRIN 300 MG SUPP.RECT PR ONE (01:03)
[2018-04-22] MEDS: INSULIN SLIDING SCALE (NOVOLOG) 1 VIAL SQ SCH ×4 (01:11→17:59)
[2018-04-22] MEDS ORDERED: PIPERACILLIN/TAZOBACTAM 2.25 GM VIAL IVPB ONE ×4 (02:49→21:57)
[2018-04-22] MEDS: PIPERACILLIN/TAZOB 2.25 GM 2.25 GM in DEXTROSE 5%-WATER - 50 ML IVPB SCH ×4 (02:50→22:06)
[2018-04-22] MEDS ORDERED: DEXTROSE 5%-WATER - 50 ML IVPB ONE ×3 (02:50→15:27)
[2018-04-22] MEDS: HEPARIN NA (PORCINE) 5,000 UNITS/ML 1ML VIAL SQ SCH (06:24)
[2018-04-22 06:25] LABS: BASO % 0.2 % (0-2.0); HEMATOCRIT 39.2 % (35.4-49); HEMOGLOBIN 13.6 GM/dL (11.7-16.9); MCH 31.1 pg (25.7-33.7); MCHC 34.7 g/dl (32.0-35.9); MEAN CELL VOLUME 89.8 fl (80-96); MEAN PLT VOLUME 10.5 fl (7.5-11.1); MONO % 7.6 % (3.8-10.2); NEUT % 81.2 % (42.8-82.8); PLATELET COUNT 121 K/MM3 (134-434); RBC 4.36 M/mm3 (4.00-5.60); RDW 13.6 % (11.9-15.9); WHITE BLOOD COUNT 12.8 K/mm3 (4.0-10.0)
[2018-04-22 07:17] LABS: ALBUMIN 2.2 g/dl (3.4-5.0); ALK PHOS 60 U/L (45-117); ANION GAP 13 MMOL/L (8-16); BILIRUBIN,TOTAL 0.5 mg/dL (0.2-1); BLOOD UREA NITROGEN 55 mg/dL (7-18); CALCIUM 7.3 mg/dL (8.5-10.1); CHLORIDE 104 mmol/L (98-107); CO2 18 mmol/L (21-32); CREATININE 6.4 mg/dL (0.55-1.3); GLUCOSE,RANDOM 152 mg/dL (74-106); MAGNESIUM 4.3 mg/dL (1.8-2.4); PHOSPHOROUS 4.6 mg/dL (2.5-4.9); POTASSIUM 5.8 mmol/L (3.5-5.1); SGOT/AST 237 U/L (15-37); SGPT/ALT 132 U/L (13-61); SODIUM 135 mmol/L (136-145); TOT PROT 5.3 g/dl (6.4-8.2)
[2018-04-22] MEDS ORDERED: SODIUM POLYSTYRENE SULFONATE 15 GM/60 ML BOTTLE PO ONE (07:29)
[2018-04-22] MEDS ORDERED: DEXTROSE 50%-WATER - 25 GM/50 ML VIAL IVPUSH ONE (08:29)
[2018-04-22] MEDS ORDERED: INSULIN REGULAR HUMAN 100 UNITS/ML *VIAL IVPUSH ONE (08:29)
[2018-04-22] MEDS ORDERED: SODIUM BICARBONATE 8.4% 50 MEQ/50 ML DISP.SYRIN IVPUSH ONE (08:29)
[2018-04-22] MEDS ORDERED: CALCIUM GLUCONATE 10% - 1,000 MG/10 ML VIAL IVPB ONE (08:30)
[2018-04-22] MEDS ORDERED: PT OWN MED DRAWER 7, Y5N ONE ×3 (08:54→22:36)
--- NOTE | 2018-04-22 09:03 | CONSULT ---
Consult Consult Specialty:: Nephrology Referred by:: Dr Doyle Reason for Consultation:: Hyperkalemia and JENNIFER - History of Present Illness Chief Complaint: Cardiac arrest History of Present Illness: Pt is a 48 yo [place] with no known PMHx BIBEMS from a motel after he screamed for help 5 times and the guard at the motel found him on the floor wet and in cardiac arrest. Chicken bones were noted in the bath tub and enemas in the fridge. EMS administered 5 of Epi and 4mg of Narcan, a ET 7.5 tube was placed. Pt was noted to be utox positive for cocaine, found to have tropinemia, received TTM, on vasopressors, sedated on propofol and midazolam and antibiotics. Patient has rising creatinine (1.6>>>6.4) and elevated k, initial polyuric phase now oliguric . ABD Xray showed no ileus or obstruction, renal US showed no hydronephrosis or obstruction. UA- , spgr 1.009, PH -9, pr-2+, Glu 2+ , blood 2+, RBC -8, WBC-2, rare mucus. - History Source History Provided By: Medical Record Limitations to Obtaining History: Clinical Condition - Alcohol/Substance Use Hx Alcohol Use: No History of Substance Use: reports: Cocaine - Smoking History Smoking history: Unknown if ever smoked Home Medications - Allergies Allergies/Adverse Reactions: Allergies Allergy/AdvReac Type Severity Reaction Status Date / Time No Allergy Information Allergy Verified 04/20/18 01:38 Available - Home Medications Home Medications: Ambulatory Orders Unobtainable 04/20/18 Review of Systems Unable to obtain ROS, reason: Intubated - Review of Systems Constitutional: reports: Fever Physical Exam Vital Signs: Vital Signs Temperature 98.7 F 04/22/18 08:00 Pulse Rate 110 H 04/22/18 08:00 Respiratory Rate 21 H 04/22/18 08:10 Blood Pressure 119/78 04/22/18 08:00 O2 Sat by Pulse Oximetry (%) 99 04/22/18 07:50 Constitutional: Yes: Well Nourished Eyes: Yes: Conjunctiva Clear, Other (pupils reactive bilaterally) HENT: Yes: Other (NGT, ET) Cardiovascular: Yes: Tachycardia, S1, S2 Respiratory: Yes: Other (Mechanical breath sounds, [id number], TV-500, RR -18, 5/8, 60%) Gastrointestinal: Yes: Distention, Hypoactive Bowel Sounds Renal/: Yes: Oliguria. No: Hematuria Edema: No Peripheral Pulses WNL: Yes Neurological: Yes: Other (Sedated and intubated, absent gag reflex) Labs: CBC, BMP 04/22/18 05:15 04/22/18 05:15 Assessment/Plan Assessment: s/p Cardiopulmonary Arrest s/p Hypothermia Protocol r/o Anoxic Encephalopathy NSTEMI Cocaine Use Shock - Septic vs Cardiogenic Severe Metabolic Acidosis Hyperglycemia improving Elevated LFTs likely-shock liver Acute Kidney Injury Hyperkalemia Plan: JENNIFER with hyperkalemia s/p cardiac arrest s/p TTM, cocaine positive on vasopressors and NSTEM -Worsening renal function likely multifactorial- prerenal and renal (no evidence of obstruction or medico renal dx on renal US) -UA with proteinuria, RBCs - Received D50W and iv Insulin -EKG pending -Urine lytes -Urine creatinine protein ratio -IV fluids 1/2 NS + 75meq Sodium bicarbonate @125mls/hr -BMP @noon follow up, pt may need dialysis for likely ATN if not improving -Continue other mx per ICU/Primary team Visit type - Emergency Visit Emergency Visit: Yes ED Registration Date: 04/20/18 Care time: The patient presented to the Emergency Department on the above date and was hospitalized for further evaluation of their emergent condition. - New Patient This patient is new to me today: Yes Date on this admission: 04/22/18 - Critical Care Critical Care patient: Yes Total Critical Care Time (in minutes): 45 Critical Care Statement: The care of this patient involved high complexity decision making to prevent further life threatening deterioration of the patient 's condition and/or to evaluate & treat vital organ system(s) failure or risk of failure.
--- NOTE | 2018-04-22 09:05 | PN ---
Progress Note, Physician Chief Complaint: Unable to obtain, obtunded - Current Medication List Current Medications: Active Medications Acetaminophen (Ofirmev Injection -) 1,000 mg IVPB Q6H PRN PRN Reason: PAIN OR FEVER Last Admin: 04/21/18 13:57 Dose: 1,000 mg Aspirin (Asa -) 81 mg RC DAILY [facility] Calcium Acetate (Phoslo -) 1,334 mg PO TIDCM MORRIS Last Admin: 04/21/18 17:14 Dose: Not Given Chlorhexidine Gluconate (Hibiclens For Decolonization -) 1 applic TP HS MORRIS Last Admin: 04/21/18 22:33 Dose: 1 applic Folic Acid (Folic Acid Injection -) 1 mg SQ DAILY [facility] Last Admin: 04/21/18 12:10 Dose: 1 mg Heparin Sodium (Porcine) (Heparin -) 5,000 unit SQ TID M[facility]RIS Last Admin: 04/22/18 06:24 Dose: 5,000 unit Propofol (Diprivan -) 1,000,000 mcg in 100 mls @ 2.449 mls/hr IV TITR M[facility]RIS; Protocol Last Admin: 04/21/18 23:52 Dose: 15 mcg/kg/min, 7.348 mls/hr Midazolam HCl 100 mg/ Sodium (Chloride) 100 mls @ 1 mls/hr IVPB TITR MORRIS; Protocol Last Admin: 04/21/18 23:51 Dose: 6 mg/hr, 6 mls/hr Sodium Chloride (Normal Saline -) 1,000 mls @ 100 mls/hr IV ASDIR MORRIS Last Admin: 04/21/18 13:05 Dose: 100 mls/hr Piperacillin Sod/Tazobactam (Sod 2.25 gm/ Dextrose) 50 mls @ 100 mls/hr IVPB Q6H-IV [facility]RIS; Protocol Last Admin: 04/22/18 02:50 Dose: 100 mls/hr Norepinephrine Bitartrate 8, (000 mcg/ Dextrose) 500 mls @ 18.75 mls/hr IV TITR MORRIS; Protocol Last Admin: 04/21/18 15:15 Dose: 8 mcg/min, 30 mls/hr Insulin Aspart (Novolog Vial Sliding Scale -) 1 vial SQ Q6H MORRIS; Protocol Last Admin: 04/22/18 06:24 Dose: Not Given Levetiracetam (Keppra Injection -) 500 mg IVPB BID [facility] Last Admin: 04/21/18 21:04 Dose: 500 mg Mupirocin (Bactroban Ointment (For Decolonization) -) 1 applic NS BID [facility] Stop: 04/25/18 09:59 Last Admin: 04/21/18 22:33 Dose: 1 applic Pantoprazole Sodium (Protonix Iv) 40 mg IVPUSH DAILY [facility] Last Admin: 04/21/18 09:32 Dose: 40 mg Thiamine HCl (Vitamin B1 Injection -) 200 mg IM DAILY [facility] Last Admin: 04/21/18 09:32 Dose: 200 mg - Objective Vital Signs: Vital Signs Temperature 37.1 C 04/22/18 08:00 Pulse Rate 110 H 04/22/18 08:00 Respiratory Rate 21 H 04/22/18 08:10 Blood Pressure 119/78 04/22/18 08:00 O2 Sat by Pulse Oximetry (%) 99 04/22/18 07:50 Constitutional: Yes: Other (obtunded) Eyes: Yes: PERRL Cardiovascular: Yes: Tachycardia. No: Pulse Irregular, Gallop, Murmur, Rub Respiratory: Yes: CTA Bilaterally (anteriorly), Intubated, Mechanically Ventilated, Tachypnea. No: Regular, Rales, Rhonchi, Wheezes Gastrointestinal: Yes: Distention, Hypoactive Bowel Sounds. No: Tenderness Extremities: Yes: WNL Edema: No Labs: CBC, BMP 04/22/18 05:15 04/22/18 05:15 INR, PTT INR 1.13 (0.83-1.09) H 04/21/18 05:30 Problem List - Problems (1) Lactic acidosis Code(s): E87.2 - ACIDOSIS (2) Toxic metabolic encephalopathy Code(s): G92 - TOXIC ENCEPHALOPATHY (3) Sepsis Code(s): A41.9 - SEPSIS, UNSPECIFIED ORGANISM (4) Acute respiratory failure with hypoxia Code(s): J96.01 - ACUTE RESPIRATORY FAILURE WITH HYPOXIA (5) Shock Code(s): R57.9 - SHOCK, UNSPECIFIED (6) NSTEMI (non-ST elevated myocardial infarction) Code(s): I21.4 - NON-ST ELEVATION (NSTEMI) MYOCARDIAL INFARCTION (7) Cocaine use Code(s): F14.90 - COCAINE USE, UNSPECIFIED, UNCOMPLICATED (8) Cardiac arrest Code(s): I46.9 - CARDIAC ARREST, CAUSE UNSPECIFIED (9) JENNIFER (acute kidney injury) Code(s): N17.9 - ACUTE KIDNEY FAILURE, UNSPECIFIED (10) Hyperkalemia Code(s): E87.5 - HYPERKALEMIA Assessment/Plan -case d/w ICU and neurology -repeat head CT showing anoxic brain injury -ammonia level normal -worsening renal function with uremia and hyperkalemia -will not give kayexalate orally secondary to ileus -consult nephrology -give sodium bicarb, calcium gluconate, insulin/D50 -cardiology note reviewed, continue aspirin but no beta blockers -continue hydration -continue antibiotics -placed on keppra for seizure ppx -poor prognosis 40 minutes spent in critical care time with this patient
[2018-04-22] MEDS: CALCIUM ACETATE 667 MG CAPSULE (FP) PO SCH (09:08)
[2018-04-22] MEDS: PANTOPRAZOLE SODIUM 40 MG VIAL IVPUSH SCH (09:15)
[2018-04-22] MEDS: levETIRAcetam 500 MG/5 ML INJECTION VIAL IVPB SCH ×2 (09:15→22:09)
[2018-04-22] MEDS: MUPIROCIN 2% TOPICAL OINTMENT FOR DECOLONIZATION NS SCH ×2 (09:20→22:07)
[2018-04-22] MEDS: THIAMINE HCL 200 MG/2 ML VIAL IM SCH (09:20)
[2018-04-22] MEDS ORDERED: INSULIN REGULAR HUMAN 100 UNITS/ML *VIAL ONE (09:25)
[2018-04-22] MEDS ORDERED: DEXTROSE 50%-WATER 25 GM/50 ML DISP.SYRIN ONE (09:25)
[2018-04-22] MEDS ORDERED: HEPARIN NA (PORCINE) 5,000 UNITS/ML 1ML VIAL IVPUSH PRN ×2 (09:26)
[2018-04-22] MEDS ORDERED: HEPARIN - 25,000 UNIT in SODIUM CHLORIDE 495 ML IV SCH (09:30)
--- NOTE | 2018-04-22 09:31 | PN ---
Progress Note (short form) - Note Progress Note: Neurology History of Present Illness - General Chief Complaint: Cardiac Arrest - History of Present Illness Initial Comments: 48 year old male BIBEMS after being found down in the [employer] [facility] on the floor soaked in water. Per EMS, the security at the hotel heard the patient screaming a few times and 10 minutes later they went to the patient's room and found him down on the floor soaked in water. EMS arrived on soon soon after and the patient was pulse-less, asystolic, and they began CPR. The patient was coded for approximately 30 minutes total and the only rhythms noted were v-tach which was shocked which converted to asystole. The patient arrived intubated and required cardiac resuscitation. Per ICU resident, patient may have required upwards of 30mins of resuscitation. Cocaine ended up returning positive so likely this was a cocaine related arrhythmia.Patient remains in ICU in cooling protocal. Does have brainstem reflexes (pupil constriction to light, sluggish corneal, +gag). Ordered EEG, likely to show encephalopathy but would like to confirm. Has been having myoclonic jerks, likely 2/2 anoxic brain injury, did not occuring during my visit. Ct head reviewed, evidence of anoxic brain injury (sulcal effacement, loss of hall-white). Advised ICU team to start decadron for possible reduced of edema. Too early determine prognosis but CT findings are worrisome. Past History - Past Medical History Allergies/Adverse Reactions: Allergies Allergy/AdvReac Type Severity Reaction Status Date / Time No Allergy Information Allergy Verified 04/20/18 01:38 Available Active Medications Chlorhexidine Gluconate (Hibiclens For Decolonization -) 1 applic TP HS MORRIS Last Admin: 04/20/18 21:27 Dose: 1 applic Folic Acid (Folic Acid Injection -) 1 mg SQ DAILY [facility] Last Admin: 04/20/18 12:40 Dose: Not Given Propofol (Diprivan -) 1,000,000 mcg in 100 mls @ 2.449 mls/hr IV TITR M[facility]RIS; Protocol Last Titration: 04/21/18 08:30 Dose: 0 mcg/kg/min, 0 mls/hr Norepinephrine Bitartrate 4, (000 mcg/ Dextrose) 500 mls @ 37.5 mls/hr IV TITR MORRIS; Protocol Last Admin: 04/21/18 08:00 Dose: Not Given Midazolam HCl 100 mg/ Sodium (Chloride) 100 mls @ 1 mls/hr IVPB TITR [facility]ORIRS; Protocol Last Titration: 04/21/18 08:30 Dose: 0 mg/hr, 0 mls/hr Sodium Chloride (Normal Saline -) 1,000 mls @ 100 mls/hr IV ASDIR MORRIS Last Admin: 04/20/18 12:25 Dose: 100 mls/hr Piperacillin Sod/Tazobactam (Sod 3.375 gm/ Dextrose) 50 mls @ 100 mls/hr IVPB Q6H-IV [facility]; Protocol Last Admin: 04/21/18 08:09 Dose: 100 mls/hr Insulin Aspart (Novolog Vial Sliding Scale -) 1 vial SQ Q6H M[facility]IS; Protocol Last Admin: 04/21/18 06:50 Dose: 2 units Levetiracetam (Keppra Injection -) 500 mg IVPB BID [facility] Last Admin: 04/21/18 09:30 Dose: 500 mg Mupirocin (Bactroban Ointment (For Decolonization) -) 1 applic NS BID [facility] Stop: 04/25/18 09:59 Last Admin: 04/20/18 21:27 Dose: 1 applic Pantoprazole Sodium (Protonix Iv) 40 mg IVPUSH DAILY [facility] Last Admin: 04/21/18 09:32 Dose: 40 mg Thiamine HCl (Vitamin B1 Injection -) 200 mg IM DAILY [facility] Last Admin: 04/21/18 09:32 Dose: 200 mg *Physical Exam Vital Signs Period Temp Pulse Resp BP Sys/Boykin Pulse Ox Last 24 Hr 98.2 F-103.5 F 107-150 18-36 80-135/36-88 97-99 - Physical Exam General Appearance: Yes: Nourished, Other (intubated, sedated but no sign of trauma or obvious deformity). No: Disheveled, Alcohol on Breath HEENT: negative: EOMI, MORRO (widened and non reactive), Normal ENT Inspection ( ET tube in place but no other sign of trauma.) Neck: positive: Trachea midline, Supple Respiratory/Chest: positive: Lungs Clear. negative: Normal Breath Sounds ( mechanical breath sounds) Cardiovascular: negative: Regular Rhythm, Regular Rate (tachycardia with premature beats) Gastrointestinal/Abdominal: positive: Normal Bowel Sounds, Flat, Soft. negative : Pulsatile Mass Male Genitalia: positive: normal genitalia. negative: hematuria Musculoskeletal: positive: Other. negative: Normal Inspection (intubated and sedated, flaccid without obvious defomrity or sign of trauma.) Extremity: positive: Normal Capillary Refill, Normal Inspection, Normal Range of Motion (normal passsive range of motion, not actively moving) Integumentary: positive: Normal Color, Dry, Cold. negative: Warm Neurologic: Pupil response +, sluggish corneal, + gag, myoclonic jerks, not following commands CBCD WBC 12.8 K/mm3 (4.0-10.0) H 04/22/18 05:15 RBC 4.36 M/mm3 (4.00-5.60) 04/22/18 05:15 Hgb 13.6 GM/dL (11.7-16.9) 04/22/18 05:15 Hct 39.2 % (35.4-49) D 04/22/18 05:15 MCV 89.8 fl (80-96) 04/22/18 05:15 MCHC 34.7 g/dl (32.0-35.9) 04/22/18 05:15 RDW 13.6 % (11.9-15.9) 04/22/18 05:15 Plt Count 121 K/MM3 (134-434) L D 04/22/18 05:15 MPV 10.5 fl (7.5-11.1) 04/22/18 05:15 CMP Sodium 135 mmol/L (136-145) L 04/22/18 05:15 Potassium 5.8 mmol/L (3.5-5.1) H 04/22/18 05:15 Chloride 104 mmol/L (98-107) 04/22/18 05:15 Carbon Dioxide 18 mmol/L (21-32) L 04/22/18 05:15 Anion Gap 13 MMOL/L (8-16) 04/22/18 05:15 BUN 55 mg/dL (7-18) H 04/22/18 05:15 Creatinine 6.4 mg/dL (0.55-1.3) H 04/22/18 05:15 Creat Clearance w eGFR 9.44 (>60) 04/22/18 05:15 Random Glucose 152 mg/dL (74-106) H 04/22/18 05:15 Calcium 7.3 mg/dL (8.5-10.1) L 04/22/18 05:15 Total Bilirubin 0.5 mg/dL (0.2-1) 04/22/18 05:15 AST 237 U/L (15-37) H 04/22/18 05:15 ALT 132 U/L (13-61) H 04/22/18 05:15 Alkaline Phosphatase 60 U/L (45-117) 04/22/18 05:15 Total Protein 5.3 g/dl (6.4-8.2) L 04/22/18 05:15 Albumin 2.2 g/dl (3.4-5.0) L 04/22/18 05:15 CARDIAC ENZYMES Creatine Kinase 984 U/L (26-308) H 04/22/18 05:15 Troponin I 5.95 ng/ml (0.00-0.05) H* 04/21/18 05:30 Plan: 48 year old male BIBEMS after being found down in the [employer] [facility] on the floor soaked in water. Per EMS, the security at the hotel heard the patient screaming a few times and 10 minutes later they went to the patient's room and found him down on the floor soaked in water. EMS arrived on soon soon after and the patient was pulse-less, asystolic, and they began CPR. The patient was coded for approximately 30 minutes total and the only rhythms noted were v-tach which was shocked which converted to asystole. The patient arrived intubated and required cardiac resuscitation. Per ICU resident, patient may have required upwards of 30mins of resuscitation. Patient remains in ICU in cooling protocal. Does have brainstem reflexes (pupil constriction to light, sluggish corneal, + gag). Ordered EEG, likely to show encephalopathy but would like to confirm. Has been having myoclonic jerks, likely 2/2 anoxic brain injury, did not occuring during my visit. Ct head reviewed, evidence of anoxic brain injury (sulcal effacement, loss of hall-white). Advised ICU team to start decadron for possible reduced of edema. Too early determine prognosis but CT findings are worrisome. Discussed with hospitalist. Continue monitoring closely, wean sedation as possible, extubation if able. Discussed with ICU resident, critical care time 40 mins.
[2018-04-22] MEDS ORDERED: ASPIRIN 300 MG SUPP.RECT RC SCH (10:00)
[2018-04-22] MEDS: DEXAMETHASONE SOD PHOSPHATE 4 MG/1 ML VIAL IVPUSH SCH ×3 (10:15→22:05)
[2018-04-22] MEDS: FOLIC ACID 5 MG/1 ML SQ SCH (10:47)
[2018-04-22] MEDS: PROPOFOL 1,000,000 MCG/100 ML VIAL IV SCH (11:38)
[2018-04-22] MEDS: SODIUM BICARBONATE 8.4% - 75 MEQ in SODIUM CHLORIDE 0.45% 1,000 ML IV SCH ×2 (11:38→18:00)
[2018-04-22] MEDS: ASPIRIN 300 MG SUPP.RECT RC SCH (11:40)
[2018-04-22] MEDS: NOREPINEPHRINE BITARTRATE 8,000 MCG in DEXTROSE 5%-WATER - 492 ML IV SCH ×2 (11:40→16:15)
[2018-04-22] MEDS ORDERED: NOREPINEPHRINE BITARTRATE 4 MG/4 ML ML IV ONE (11:42)
[2018-04-22] MEDS ORDERED: MIDAZOLAM 100 MG/100 ML MG IVPB ONE (11:43)
--- NOTE | 2018-04-22 11:54 | EKG ---
Test Reason : Blood Pressure : / mmHG Vent. Rate : 112 BPM Atrial Rate : 112 BPM P-R Int : 120 ms QRS Dur : 074 ms QT Int : 332 ms P-R-T Axes : 054 012 232 degrees QTc Int : 453 ms SINUS TACHYCARDIA SEPTAL INFARCT , AGE UNDETERMINED ABNORMAL ECG WHEN COMPARED WITH ECG OF 20-APR-2018 01:29, QRS DURATION HAS DECREASED SEPTAL INFARCT IS NOW PRESENT ST NO LONGER DEPRESSED IN INFERIOR LEADS ST NO LONGER DEPRESSED IN ANTEROLATERAL LEADS NONSPECIFIC T WAVE ABNORMALITY, WORSE IN INFERIOR LEADS NONSPECIFIC T WAVE ABNORMALITY, IMPROVED IN ANTERIOR LEADS Confirmed by MARLEEN LIPSCOMB, SCOTT ([id number]) on 04/22/2018 11:54:37 AM Referred By: Confirmed By:SCOTT HAWLEY MD
--- NOTE | 2018-04-22 13:02 | PN ---
Progress Note, Physician - Current Medication List Current Medications: Active Medications Acetaminophen (Ofirmev Injection -) 1,000 mg IVPB Q6H PRN PRN Reason: PAIN OR FEVER Last Admin: 04/21/18 13:57 Dose: 1,000 mg Aspirin (Asa -) 150 mg RC DAILY [facility] Last Admin: 04/22/18 11:40 Dose: 150 mg Chlorhexidine Gluconate (Hibiclens For Decolonization -) 1 applic TP HS [facility] Last Admin: 04/21/18 22:33 Dose: 1 applic Dexamethasone Sodium Phosphate (Decadron Injection -) 6 mg IVPUSH Q6H-IV [facility] Last Admin: 04/22/18 10:15 Dose: 6 mg Folic Acid (Folic Acid Injection -) 1 mg SQ DAILY [facility] Last Admin: 04/22/18 10:47 Dose: 1 mg Heparin Sodium (Porcine) (Heparin -) 1,000 unit IVPUSH PRN PRN PRN Reason: Heparin Heparin Sodium (Porcine) (Heparin -) 5,000 unit IVPUSH PRN PRN PRN Reason: Heparin Propofol (Diprivan -) 1,000,000 mcg in 100 mls @ 2.449 mls/hr IV TITR [facility]; Protocol Last Admin: 04/22/18 11:38 Dose: 15 mcg/kg/min, 7.348 mls/hr Midazolam HCl 100 mg/ Sodium (Chloride) 100 mls @ 1 mls/hr IVPB TITR [facility]; Protocol Last Admin: 04/21/18 23:51 Dose: 6 mg/hr, 6 mls/hr Piperacillin Sod/Tazobactam (Sod 2.25 gm/ Dextrose) 50 mls @ 100 mls/hr IVPB Q6H-IV [facility]; Protocol Last Admin: 04/22/18 09:11 Dose: 100 mls/hr Norepinephrine Bitartrate 8, (000 mcg/ Dextrose) 500 mls @ 18.75 mls/hr IV TITR [facility]; Protocol Last Admin: 04/22/18 11:40 Dose: 2 mcg/min, 7.5 mls/hr Heparin Sodium (Porcine) 25, (000 unit/ Sodium Chloride) 500 mls @ 20 mls/hr IV TITR [facility]; Protocol Last Admin: 04/22/18 10:49 Dose: 1,000 unit/hr, 20 mls/hr Sodium Bicarbonate 75 meq/ (Sodium Chloride) 1,075 mls @ 125 mls/hr IV Q8H [facility] Last Admin: 04/22/18 11:38 Dose: 125 mls/hr Insulin Aspart (Novolog Vial Sliding Scale -) 1 vial SQ Q6H [facility]; Protocol Last Admin: 04/22/18 06:24 Dose: Not Given Levetiracetam (Keppra Injection -) 500 mg IVPB BID [facility] Last Admin: 04/22/18 09:15 Dose: 500 mg Mupirocin (Bactroban Ointment (For Decolonization) -) 1 applic NS BID [facility] Stop: 04/25/18 09:59 Last Admin: 04/22/18 09:20 Dose: 1 applic Pantoprazole Sodium (Protonix Iv) 40 mg IVPUSH DAILY [facility] Last Admin: 04/22/18 09:15 Dose: 40 mg Thiamine HCl (Vitamin B1 Injection -) 200 mg IM DAILY [facility] Last Admin: 04/22/18 09:20 Dose: 200 mg - Objective Vital Signs: Vital Signs Temperature 98.7 F 04/22/18 08:00 Pulse Rate 86 04/22/18 12:00 Respiratory Rate 18 04/22/18 12:00 Blood Pressure 114/72 04/22/18 12:00 O2 Sat by Pulse Oximetry (%) 99 04/22/18 07:50 Labs: CBC, BMP 04/22/18 05:15 INR, PTT INR 1.13 (0.83-1.09) H 04/21/18 05:30
--- NOTE | 2018-04-22 13:08 | PN ---
Teaching Attending Note Name of Resident: Em Godwin ATTENDING PHYSICIAN STATEMENT I saw and evaluated the patient. I reviewed the resident's note and discussed the case with the resident. I agree with the resident's findings and plan as documented. SUBJECTIVE: Patient seen and examined in the ICU. Remains intubated and sedated on propofol and Versed. Remains off pressors. AC Mode of vent, 60% FiO2. CXR: ETT in position / no acute infiltrates OBJECTIVE: Intake & Output 04/19/18 04/20/18 04/21/18 04/22/18 23:59 23:59 23:59 23:59 Intake Total 2283 3802 199 Output Total 1450 4000 0 Balance 833 -198 199 Weight 180 lb Last Vital Signs Temp Pulse Resp BP Pulse Ox 98.7 F 86 18 114/72 99 04/22/18 08:00 04/22/18 12:00 04/22/18 12:00 04/22/18 12:00 04/22/18 07:50 Active Medications Acetaminophen (Ofirmev Injection -) 1,000 mg IVPB Q6H PRN PRN Reason: PAIN OR FEVER Last Admin: 04/21/18 13:57 Dose: 1,000 mg Aspirin (Asa -) 150 mg RC DAILY [facility] Last Admin: 04/22/18 11:40 Dose: 150 mg Chlorhexidine Gluconate (Hibiclens For Decolonization -) 1 applic TP HS [facility] Last Admin: 04/21/18 22:33 Dose: 1 applic Dexamethasone Sodium Phosphate (Decadron Injection -) 6 mg IVPUSH Q6H-IV [facility] Last Admin: 04/22/18 10:15 Dose: 6 mg Folic Acid (Folic Acid Injection -) 1 mg SQ DAILY [facility] Last Admin: 04/22/18 10:47 Dose: 1 mg Heparin Sodium (Porcine) (Heparin -) 1,000 unit IVPUSH PRN PRN PRN Reason: Heparin Heparin Sodium (Porcine) (Heparin -) 5,000 unit IVPUSH PRN PRN PRN Reason: Heparin Propofol (Diprivan -) 1,000,000 mcg in 100 mls @ 2.449 mls/hr IV TITR [facility]; Protocol Last Admin: 04/22/18 11:38 Dose: 15 mcg/kg/min, 7.348 mls/hr Midazolam HCl 100 mg/ Sodium (Chloride) 100 mls @ 1 mls/hr IVPB TITR [facility]; Protocol Last Admin: 04/21/18 23:51 Dose: 6 mg/hr, 6 mls/hr Piperacillin Sod/Tazobactam (Sod 2.25 gm/ Dextrose) 50 mls @ 100 mls/hr IVPB Q6H-IV [facility]; Protocol Last Admin: 04/22/18 09:11 Dose: 100 mls/hr Norepinephrine Bitartrate 8, (000 mcg/ Dextrose) 500 mls @ 18.75 mls/hr IV TITR [facility]; Protocol Last Admin: 04/22/18 11:40 Dose: 2 mcg/min, 7.5 mls/hr Heparin Sodium (Porcine) 25, (000 unit/ Sodium Chloride) 500 mls @ 20 mls/hr IV TITR [facility]; Protocol Last Admin: 04/22/18 10:49 Dose: 1,000 unit/hr, 20 mls/hr Sodium Bicarbonate 75 meq/ (Sodium Chloride) 1,075 mls @ 125 mls/hr IV Q8H [facility] Last Admin: 04/22/18 11:38 Dose: 125 mls/hr Insulin Aspart (Novolog Vial Sliding Scale -) 1 vial SQ Q6H [facility]; Protocol Last Admin: 04/22/18 06:24 Dose: Not Given Levetiracetam (Keppra Injection -) 500 mg IVPB BID [facility] Last Admin: 04/22/18 09:15 Dose: 500 mg Mupirocin (Bactroban Ointment (For Decolonization) -) 1 applic NS BID [facility] Stop: 04/25/18 09:59 Last Admin: 04/22/18 09:20 Dose: 1 applic Pantoprazole Sodium (Protonix Iv) 40 mg IVPUSH DAILY [facility] Last Admin: 04/22/18 09:15 Dose: 40 mg Thiamine HCl (Vitamin B1 Injection -) 200 mg IM DAILY [facility] Last Admin: 04/22/18 09:20 Dose: 200 mg Gen: intubated, sedated Heart: RRR Lung: scattered rhonchi Abd: soft, nontender Ext: no edema Laboratory Results - last 24 hr 04/20/18 04/20/18 04/21/18 13:00 19:00 05:30 WBC RBC Hgb Hct MCV MCH MCHC RDW Plt Count MPV Absolute Neuts (auto) Neutrophils % Lymphocytes % Monocytes % Eosinophils % Basophils % Nucleated RBC % Sodium 138 138 137 Potassium 2.8 L* 4.8 4.8 Chloride 100 105 104 Carbon Dioxide 19 L 17 L 18 L Anion Gap 19 H 16 14 BUN 17 22 H 28 H Creatinine 3.0 H 3.4 H 3.8 H Creat Clearance w eGFR 22.64 19.60 17.24 POC Glucometer Random Glucose 253 H 204 H 172 H Lactic Acid Calcium 9.2 8.7 8.4 L Phosphorus 5.8 H Magnesium 5.0 H Total Bilirubin 0.6 AST 339 H ALT 205 H Alkaline Phosphatase 76 Ammonia Creatine Kinase 5361 H 5596 H 3365 H Creatine Kinase Index 3.5 3.8 5.3 H CK-MB (CK-2) 190.1 H 217.3 H 181.1 H Troponin I 5.95 H* Total Protein 6.2 L Albumin 2.8 L TSH 04/21/18 04/21/18 04/21/18 15:00 15:00 17:03 WBC RBC Hgb Hct MCV MCH MCHC RDW Plt Count MPV Absolute Neuts (auto) Neutrophils % Lymphocytes % Monocytes % Eosinophils % Basophils % Nucleated RBC % Sodium Potassium Chloride Carbon Dioxide Anion Gap BUN Creatinine Creat Clearance w eGFR POC Glucometer 145.72771 Random Glucose Lactic Acid 3.7 H* Calcium Phosphorus Magnesium Total Bilirubin AST ALT Alkaline Phosphatase Ammonia Creatine Kinase 2169 H Creatine Kinase Index 4.0 CK-MB (CK-2) 87.0 H Troponin I Total Protein Albumin TSH 04/22/18 04/22/18 04/22/18 01:04 05:15 05:15 WBC 12.8 H RBC 4.36 Hgb 13.6 Hct 39.2 D MCV 89.8 MCH 31.1 MCHC 34.7 RDW 13.6 Plt Count 121 L D MPV 10.5 Absolute Neuts (auto) 10.4 H Neutrophils % 81.2 Lymphocytes % 11.0 Monocytes % 7.6 Eosinophils % 0.0 D Basophils % 0.2 Nucleated RBC % 0 Sodium Potassium Chloride Carbon Dioxide Anion Gap BUN Creatinine Creat Clearance w eGFR POC Glucometer Random Glucose Lactic Acid Calcium Phosphorus Magnesium Total Bilirubin AST ALT Alkaline Phosphatase Ammonia 14.48 Creatine Kinase Creatine Kinase Index CK-MB (CK-2) Troponin I Total Protein Albumin TSH 0.12 L 04/22/18 05:15 WBC RBC Hgb Hct MCV MCH MCHC RDW Plt Count MPV Absolute Neuts (auto) Neutrophils % Lymphocytes % Monocytes % Eosinophils % Basophils % Nucleated RBC % Sodium 135 L Potassium 5.8 H Chloride 104 Carbon Dioxide 18 L Anion Gap 13 BUN 55 H Creatinine 6.4 H Creat Clearance w eGFR 9.44 POC Glucometer Random Glucose 152 H Lactic Acid Calcium 7.3 L Phosphorus 4.6 Magnesium 4.3 H Total Bilirubin 0.5 AST 237 H ALT 132 H Alkaline Phosphatase 60 Ammonia Creatine Kinase 984 H Creatine Kinase Index 3.5 CK-MB (CK-2) 35.1 H Troponin I Total Protein 5.3 L Albumin 2.2 L TSH ASSESSMENT AND PLAN: s/p Cardiopulmonary Arrest on Hypothermia Protocol Probable Anoxic Encephalopathy Acute ND Cocaine Use Shock - Septic vs Cardiogenic Severe Metabolic Acidosis improving Hyperglycemia improving Elevated LFTs likely Ischemic Injury Acute Kidney Injury - hypothermia protocol completed - trend LFTs - IVF - monitoring off pressors, maintain MAP >65 - monitor urine output, creatinine - empiric antibiotics / ID evaluation - f/u cultures - sedate for vent synchrony - continue volume assist control - OK to start enteral feeds - DVT/GI prophylaxis - continue ICU monitoring - Noted Bicarbonate drip started by Renal - Follow repeat labs, may need HD - Overall prognosis for meaningful survival is grave Dr Jarvis Critical care time spent in reviewing chart, evaluating patient and formulating plan 35 min
--- NOTE | 2018-04-22 13:08 | CON.CARD ---
Consult Consult Specialty:: cardiology Referred by:: Yanna Reason for Consultation:: Cardiac arrest - History of Present Illness Chief Complaint: Cardiac arrest History of Present Illness: 48-year-old man from the [place], with unknown past medical history, who was screaming in a motel room for help and shortly after collapsed. The patient had a cardiac arrest. He was intubated and resuscitated and brought to the ICU. CT of the brain is consistent with anoxic injury and brain swelling. The patient is in sinus tachycardia. Maintained on pressors, under sedation. Troponins and creatinine are elevated. The patient is in renal failure. The ECG showed sinus tachycardia with an old septal infarct. No acute ECG changes. No CHF. - History Source History Provided By: Medical Record Limitations to Obtaining History: Unresponsive - Past Medical History SERVICE MANAGER: Yes: Other (anoxic encephalopathy) Cardio/Vascular: Yes: Other (status post cardiac arrest) - Alcohol/Substance Use Hx Alcohol Use: No History of Substance Use: reports: Cocaine - Smoking History Smoking history: Unknown if ever smoked Home Medications - Allergies Allergies/Adverse Reactions: Allergies Allergy/AdvReac Type Severity Reaction Status Date / Time No Allergy Information Allergy Verified 04/20/18 01:38 Available - Home Medications Home Medications: Ambulatory Orders Unobtainable 04/20/18 Review of Systems - Review of Systems Eyes: reports: Other (Sedated, intubated) HENT: reports: Other (Sedated, intubated) Neck: reports: Other (Intubated sedated) Cardiovascular: reports: Other (Status post cardiac arrest, intubated sedated) Respiratory: reports: Other (Intubated sedated) Gastrointestinal: reports: No Symptoms Genitourinary: reports: No Symptoms Breasts: reports: No Symptoms Reported Musculoskeletal: reports: No Symptoms Integumentary: reports: No Symptoms Neurological: reports: Other (Sedated) Endocrine: reports: No Symptoms Hematology/Lymphatic: reports: No Symptoms Psychiatric: reports: No Symptoms Vital Signs: Vital Signs Temperature 98.7 F 04/22/18 08:00 Pulse Rate 86 04/22/18 12:00 Respiratory Rate 18 04/22/18 12:00 Blood Pressure 114/72 04/22/18 12:00 O2 Sat by Pulse Oximetry (%) 99 04/22/18 07:50 Constitutional: Yes: Well Nourished, Other (Sedated intubated) Eyes: Yes: Conjunctiva Clear HENT: Yes: Other (Sedated intubated) Neck: Yes: WNL Respiratory: Yes: Mechanically Ventilated Gastrointestinal: Yes: Normal Bowel Sounds, Soft Renal/: Yes: Oliguria Cardiovascular: Yes: Regular Rate and Rhythm, Tachycardia JVD: No Carotid Bruit: No PMI: Non-Displaced Heart Sounds: Yes: S1, S2 Extremities: Yes: WNL Edema: No Peripheral Pulses: 1+ Left Carotid, 1+ Right Carotid, 1+ Left Femoral, 1+ Right Femoral, 1+ Left Popliteal, 1+ Right Popliteal, 1+ Left Doralis Pedis, 1+ Right Dorsalis Pedis Neurological: Yes: Other (Sedated) - Other Data Labs, Other Data: CBC, BMP 04/22/18 05:15 INR, PTT INR 1.13 (0.83-1.09) H 04/21/18 05:30 Troponin, BNP 04/21/18 05:30 Troponin I 5.95 H* Troponin, BNP 04/21/18 05:30 Troponin I 5.95 H* Assessment/Plan 48-year-old man from the [place], with unknown past medical history, who was screaming in a motel room for help and shortly after collapsed. The patient had a cardiac arrest. He was intubated and resuscitated and brought to the ICU. CT of the brain is consistent with anoxic injury and brain swelling. The patient is in sinus tachycardia. Maintained on pressors, under sedation. Troponins and creatinine are elevated. The patient is in renal failure. The ECG showed sinus tachycardia with an old septal infarct. No acute ECG changes. No CHF. Blood is positive for cocaine. Cardiac arrest in the setting of cocaine intoxication and perhaps other substances. Elevated troponins. The patient is in renal failure. There are no acute ECG changes. No evidence of acute coronary syndrome. Brain imaging consistent with anoxic encephalopathy. Would treat conservatively in this setting. Please arrange for an echocardiogram to document left ventricular systolic function. Continue pressure support as needed. No need for further cardiac workup nor testing at this point. Please reconsult if the patient regains mental status while off sedation.
[2018-04-22 13:18] LABS: ANION GAP 15 MMOL/L (8-16); BLOOD UREA NITROGEN 62 mg/dL (7-18); CALCIUM 7.4 mg/dL (8.5-10.1); CHLORIDE 105 mmol/L (98-107); CO2 19 mmol/L (21-32); GLUCOSE,RANDOM 134 mg/dL (74-106); POTASSIUM 4.6 mmol/L (3.5-5.1); SODIUM 139 mmol/L (136-145)
--- NOTE | 2018-04-22 14:00 | PN ---
Teaching Attending Note Name of Resident: Jenae Vogt (Nephrology) ATTENDING PHYSICIAN STATEMENT I saw and evaluated the patient. I reviewed the resident's note and discussed the case with the resident. I agree with the resident's findings and plan as documented. Renal Pt is a 48 year old male with unknown pmhx who presents to the ER after being found unresponsive. He is s/p cardiac arrest. He was found to have worsening renal failure and decreased urine output. Pt was also found to be hyperkalemic. He was found in the motel with enemas and gloves. He tested positive for cocaine. pmhx unknown pshx unknonw ros unable to obtain nkda family hx unknown Current Medications Generic Name Dose Route Start Last Admin Trade Name Freq PRN Reason Stop Dose Admin Acetaminophen 1,000 mg 04/21/18 13:36 04/21/18 13:57 Ofirmev Injection - IVPB 1,000 mg Q6H PRN Administration PAIN OR FEVER Aspirin 150 mg 04/22/18 11:00 04/22/18 11:40 Asa - RC 150 mg DAILY [facility] Administration Chlorhexidine Gluconate 1 applic 04/20/18 22:00 04/21/18 22:33 Hibiclens For Decolonization - TP 1 applic HS [facility] Administration Dexamethasone Sodium Phosphate 6 mg 04/22/18 09:15 04/22/18 10:15 Decadron Injection - IVPUSH 6 mg Q6H-IV [facility] Administration Folic Acid 1 mg 04/20/18 05:17 04/22/18 10:47 Folic Acid Injection - SQ 1 mg DAILY [facility] Administration Heparin Sodium (Porcine) 1,000 unit 04/22/18 09:26 Heparin - IVPUSH PRN PRN Heparin Heparin Sodium (Porcine) 5,000 unit 04/22/18 09:26 Heparin - IVPUSH PRN PRN Heparin Propofol 1,000,000 mcg in 100 mls @ 2.449 mls/hr 04/20/18 07:45 04/22/18 11: 38 Diprivan - IV 15 mcg/kg/min TITR [facility] 7.348 mls/hr Administration Protocol 5 MCG/KG/MIN Midazolam HCl 100 mg/ Sodium 100 mls @ 1 mls/hr 04/20/18 09:45 04/21/18 23:51 Chloride IVPB 6 mg/hr TITR [facility] 6 mls/hr Administration Protocol 1 MG/HR Piperacillin Sod/Tazobactam 50 mls @ 100 mls/hr 04/21/18 15:00 04/22/18 09:11 Sod 2.25 gm/ Dextrose IVPB 100 mls/hr Q6H-IV [facility] Administration Protocol Norepinephrine Bitartrate 8, 500 mls @ 18.75 mls/hr 04/21/18 16:15 04/22/18 11:40 000 mcg/ Dextrose IV 2 mcg/min TITR [facility] 7.5 mls/hr Administration Protocol 5 MCG/MIN Heparin Sodium (Porcine) 25, 500 mls @ 20 mls/hr 04/22/18 09:30 04/22/18 10: 49 000 unit/ Sodium Chloride IV 1,000 unit/hr TITR [facility] 20 mls/hr Administration Protocol 1,000 UNIT/HR Sodium Bicarbonate 75 meq/ 1,075 mls @ 125 mls/hr 04/22/18 10:30 04/22/18 11: 38 Sodium Chloride IV 125 mls/hr Q8H [facility] Administration Insulin Aspart 1 vial 04/20/18 18:00 04/22/18 06:24 Novolog Vial Sliding Scale - SQ Not Given Q6H [facility] Protocol Levetiracetam 500 mg 04/20/18 12:00 04/22/18 09:15 Keppra Injection - IVPB 500 mg BID [facility] Administration Mupirocin 1 applic 04/20/18 10:00 04/22/18 09:20 Bactroban Ointment (For Decolonization) - NS 04/25/18 09:59 1 applic BID [facility] Administration Pantoprazole Sodium 40 mg 04/20/18 14:30 04/22/18 09:15 Protonix Iv IVPUSH 40 mg DAILY [facility] Administration Thiamine HCl 200 mg 04/20/18 05:16 04/22/18 09:20 Vitamin B1 Injection - IM 200 mg DAILY [facility] Administration Laboratory Tests 04/20/18 04/20/18 04/20/18 01:40 06:40 13:00 Potassium 3.2 L 3.1 L 2.8 L* Creatinine 04/20/18 04/21/18 04/22/18 19:00 05:30 05:15 Potassium 4.8 4.8 5.8 H Creatinine 6.4 H 04/22/18 12:25 Potassium 4.6 Creatinine 7.0 H Last Vital Signs Temp Pulse Resp BP Pulse Ox 98.7 F 86 18 114/72 99 04/22/18 08:00 04/22/18 12:00 04/22/18 12:00 04/22/18 12:00 04/22/18 07:50 Laboratory Tests 04/20/18 04/20/18 04/21/18 01:40 Unknown 15:00 Lactic Acid 25.3 H* 8.1 H* 3.7 H* cardio s1s2 tachy pulm bilateral vent sounds GI distended gu hahn, oliguria skin mottling of lower ext neuro lethargic circ pos pulses Impression 1. cardiac arrest 2. varun 3. hyperkalemia 4. shock 5. cocain use 6. lactic acidosis 7. NSTEMI Plan - change fluids to 1/2ns with 75 mew of bicarb - potassium treated medically and repeat potassium is improved - no HD at this point, family agree to it if needed, spoke to his brother in [place] - cont current care, maintain map of 65 - vent support - monitor urine output - prognosis is poor - lactic acid improving
[2018-04-22] MEDS: MIDAZOLAM 100 MG in SODIUM CHLORIDE 100 ML IVPB SCH (14:47)
--- NOTE | 2018-04-22 15:24 | PN ---
Progress Note (short form) - Note Progress Note: SUBJECTIVE Patient seen and examined at the bedside. Intubated and sedated. OBJECTIVE Vital Signs Temperature 98.7 F 04/22/18 08:00 Pulse Rate 86 04/22/18 12:00 Respiratory Rate 20 04/22/18 12:15 Blood Pressure 114/72 04/22/18 12:00 O2 Sat by Pulse Oximetry (%) 99 04/22/18 07:50 General: Intubated Head: No signs of trauma Eyes: Sclera anicteric ENT: Moist mucus membranes Neck: Supple Lungs: Scattered rhonchi Cardio: Regular rhythm, S1 and S2 present Abdomen: Soft, distended Extremities: Distal pulses present SKIN: Mottling present on lower extremities Neurologic: Sedated ASSESSMENT 48 yr old with unknown medical history BIBEMS s/p cardiac arrest in the field obtained ROSC in the ED found to have cocaine in his urine tox. Now HOD #3 PLAN NEURO Sedated with Propofol and Versed Trial of held sedation this AM: patient with myoclonic jerking Neuro checks Q4H. EEG pending (unable to be performed yesterday due to machine malfunction) Will hold sedation periodically to assess mental status Empiric antiepileptics Head CT 04/21/18: Findings compatible with the clinical history of an anoxic injury with brain swelling, effacement of the cortical sulci, loss of the lucio- white matter junction and slight decrease in the size of the lateral ventricles. No shift of the midline structures. No gross evidence of subfalcine ventral herniation -Decadron 6mg IV q6h started for possible reduction of edema CV NSTEMI, cardiac arrest possibly 2/2 cocaine intoxication. Targeted temp management protocol completed ECHO 04/20/18: limited study: grossly normal LVEF; unable to assess regional wall motion. Tpn=5.95 (from 13.2) Continue pressor support as needed for goal MAP>65 IV Heparin, per cardiology PULM CXR does not show acute pulmonary process. Continue AC ventilatory support Can lower ET tube position Settings- rate 18 (from 20), TV 500, Fio2 60%, PEEP 5 ID Continue empiric antibiotics Renal dose of Zosyn Follow up blood and urine cultures GI NPO for now NG tube to wall suction in place Will consider enteral feeds for tomorrow Elevated LFT's most likely 2/2 hypoperfusion ENDO No active issues Initially suspicion for DKA however did not meet criteria Hypoglycemia improved with ISS. BGM Q6H WIll continue to cover with ISS RENAL Renal Failure BUN/Cr= 62/7.2 (from 55/6.4) Will follow BMP and continue to monitor K=5.8, elevated -given sodium bicarb, calcium gluconate, insulin/D50 as kayexalate is contraindicated -Urine lytes -Urine creatinine protein ratio -IV fluids 1/2 NS + 75meq Sodium bicarbonate @125mls/hr FEN Monitor electrolytes -Replete as needed NPO for now; Will consider enteral feeds tomorrow FLD Maintain hahn for accurate I/O's Right subclavian central line in place. NG tube set to low wall suction. PPx DVT: Heparin GI: protonix 40 IV daily. DISPO: Continue to monitor in ICU.
[2018-04-22 15:55] LABS: RATIO URIN PROTEIN/URIN CREAT 1.93 MG/DL
[2018-04-22] MEDS ORDERED: HEMOQUE TEST 1 EACH EACH ONE ×2 (17:46→17:47)
[2018-04-22] MEDS ORDERED: DEXTROSE 5%-WATER - 100 ML IVPB ONE (21:57)
[2018-04-22] MEDS: CHLORHEXIDINE GLUCONATE 4% CLEANSER FOR DECOLONIZATION TP SCH (22:08)
[2018-04-23] MEDS ORDERED: MIDAZOLAM 100 MG/100 ML MG IVPB ONE ×2 (01:29→20:44)
[2018-04-23] MEDS: INSULIN SLIDING SCALE (NOVOLOG) 1 VIAL SQ SCH ×4 (01:45→18:15)
[2018-04-23] MEDS: SODIUM BICARBONATE 8.4% - 75 MEQ in SODIUM CHLORIDE 0.45% 1,000 ML IV SCH ×3 (01:46→19:18)
[2018-04-23] MEDS: DEXAMETHASONE SOD PHOSPHATE 4 MG/1 ML VIAL IVPUSH SCH ×4 (02:04→21:03)
[2018-04-23] MEDS: PIPERACILLIN/TAZOB 2.25 GM 2.25 GM in DEXTROSE 5%-WATER - 50 ML IVPB SCH ×4 (02:05→21:01)
[2018-04-23] MEDS: PROPOFOL 1,000,000 MCG/100 ML VIAL IV SCH ×2 (02:06→09:23)
[2018-04-23] MEDS: MIDAZOLAM 100 MG in SODIUM CHLORIDE 100 ML IVPB SCH ×3 (06:55→21:02)
--- NOTE | 2018-04-23 07:12 | HOSP ---
Subjective - Review of Symptoms Events since last encounter: Heparin was stopped secondary to bleeding. He was bleeding and oozing from left peripheral IV site and right subclavian central access. Physical Examination Vital Signs: Vital Signs Temperature 100.7 F H 04/23/18 02:00 Pulse Rate 112 H 04/23/18 06:00 Respiratory Rate 20 04/23/18 06:00 Blood Pressure 147/78 04/23/18 06:00 O2 Sat by Pulse Oximetry (%) 99 04/22/18 22:14 Constitutional: Yes: No Distress, Other (intubated and sedated.) Eyes: Yes: Other (pupils minimally reactive to light.) Neck: Yes: Supple, Trachea Midline Cardiovascular: Yes: Tachycardia. No: JVD Respiratory: Yes: Mechanically Ventilated Gastrointestinal: Yes: Abdomen, Obese, Distention, Other (NG tube set to wall suction.) Extremities: Yes: Other (modeling of bilateral lower ext.) Edema: No Neurological: Yes: Unresponsive, Other (sedated) Labs: CBC, BMP 04/22/18 05:15 04/22/18 12:25 Hospitalist Encounter Assessment: heparin held secondary to bleeding. Visit type - Emergency Visit Emergency Visit: Yes ED Registration Date: 04/20/18 Care time: The patient presented to the Emergency Department on the above date and was hospitalized for further evaluation of their emergent condition. - New Patient This patient is new to me today: No - Critical Care Critical Care patient: Yes Total Critical Care Time (in minutes): 31 Critical Care Statement: The care of this patient involved high complexity decision making to prevent further life threatening deterioration of the patient 's condition and/or to evaluate & treat vital organ system(s) failure or risk of failure.
--- NOTE | 2018-04-23 08:13 | PN ---
Progress Note (short form) - Note Progress Note: PULM/CCM Pt Seen & Examined in the ICU. Re-warmed now. Remains sedated and inubated on the Vent. Coming off of Pressors. High index of suspicion for trafficking foreign substance w/ in GI tract. Active Medications Acetaminophen (Ofirmev Injection -) 1,000 mg IVPB Q6H PRN PRN Reason: PAIN OR FEVER Last Admin: 04/21/18 13:57 Dose: 1,000 mg Aspirin (Asa -) 150 mg RC DAILY [facility] Last Admin: 04/23/18 09:24 Dose: 150 mg Chlorhexidine Gluconate (Hibiclens For Decolonization -) 1 applic TP HS [facility] Last Admin: 04/22/18 22:08 Dose: 1 applic Dexamethasone Sodium Phosphate (Decadron Injection -) 6 mg IVPUSH Q6H-IV [facility] Last Admin: 04/23/18 08:37 Dose: 6 mg Folic Acid (Folic Acid Injection -) 1 mg SQ DAILY [facility] Last Admin: 04/23/18 09:25 Dose: 1 mg Propofol (Diprivan -) 1,000,000 mcg in 100 mls @ 2.449 mls/hr IV TITR [facility]; Protocol Last Admin: 04/23/18 09:23 Dose: 15 mcg/kg/min, 7.348 mls/hr Midazolam HCl 100 mg/ Sodium (Chloride) 100 mls @ 1 mls/hr IVPB TITR [facility]; Protocol Last Admin: 04/23/18 09:45 Dose: 6 mg/hr, 6 mls/hr Piperacillin Sod/Tazobactam (Sod 2.25 gm/ Dextrose) 50 mls @ 100 mls/hr IVPB Q6H-IV [facility]; Protocol Last Admin: 04/23/18 08:37 Dose: 100 mls/hr Norepinephrine Bitartrate 8, (000 mcg/ Dextrose) 500 mls @ 18.75 mls/hr IV TITR [facility]; Protocol Last Admin: 04/22/18 16:15 Dose: Not Given Sodium Bicarbonate 75 meq/ (Sodium Chloride) 1,075 mls @ 125 mls/hr IV Q8H [facility] Last Admin: 04/23/18 10:20 Dose: 125 mls/hr Insulin Aspart (Novolog Vial Sliding Scale -) 1 vial SQ Q6H [facility]; Protocol Last Admin: 04/23/18 13:09 Dose: 2 units Levetiracetam (Keppra Injection -) 500 mg IVPB BID [facility] Last Admin: 04/23/18 09:28 Dose: 500 mg Mupirocin (Bactroban Ointment (For Decolonization) -) 1 applic NS BID [facility] Stop: 04/25/18 09:59 Last Admin: 04/23/18 09:25 Dose: 1 applic Pantoprazole Sodium (Protonix Iv) 40 mg IVPUSH DAILY [facility] Last Admin: 04/23/18 09:27 Dose: 40 mg Polyethylene Glycol/Electrolytes (Golytely Solution -) 4,000 ml NGT ONCE ONE Stop: 04/23/18 14:03 Thiamine HCl (Vitamin B1 Injection -) 200 mg IM DAILY [facility] Last Admin: 04/23/18 09:29 Dose: 200 mg V/S Period Temp Pulse Resp BP Sys/Boykin Pulse Ox Last 24 Hr 98.7 F-100.7 F 100-115 - 114-147/75-84 99-99 Intake & Output 04/20/18 04/21/18 04/22/18 04/23/18 23:59 23:59 23:59 23:59 Intake Total 2283 3802 2745 1041 Output Total 1450 4000 160 160 Balance 833 -198 2585 881 Weight 81.647 kg 81.647 kg 84.6 kg GEN: Middle aged man intubated & sedated on the Vent PULM: CTAB CARDS: nml S1, S2, RR, unable to appreciate any G/M/R ABD: + BS, disteneded but S/S N/T X4Q Ext: + Pulses, WWPX4, trace peripheral edema CBC, BMP 04/23/18 05:30 04/23/18 05:30 RECENT IMAGING TO NOTE: CXR 04/23: A single view the chest reveals a weak inspiration with endotracheal tube tip well above marco right subclavian line with tip in right atrium. There is a prominent mediastinum with some prominent central markings. There is no sign of infiltrate or failure. Correlation recommended. ASSESS: s/p Cardiopulmonary Arrest s/p Hypothermia Protocol Probable Anoxic Encephalopathy Acute AL Cocaine Shock - Septic vs Cardiogenic Severe Metabolic Acidosis improving Hyperglycemia improving Elevated LFTs likely Ischemic Injury Acute Kidney Injury PLAN: - Maintain deep sedation for vent synch - Wean off pressors - Secure CTAP imaging of suspected foreign objects in GI tract - Start Go-Lytely & Reglan - Once bowel is clear begin pressor wean - Consider Poison Control - Lock Down Unit - No visitors - Notify Security - Trend LFTs - Start Diuresis NOW - monitor urine output, creatinine - empiric antibiotics - f/u cultures - Once Bowel is clear & pressors are off, wake up & extubate - DVT/GI prophylaxis - continue ICU monitoring - Bring Palliative Care in now. Brother is in [place]. Once bowel is clear if pt fails to wake up brother may want to w/ draw. CCT spent in reviewing chart, evaluating patient and formulating plan 40" DGL, ACNP-[facility] ICU PULM/CCM 0721
[2018-04-23] MEDS ORDERED: PIPERACILLIN/TAZOBACTAM 2.25 GM VIAL IVPB ONE ×3 (08:33→20:45)
[2018-04-23] MEDS ORDERED: PT OWN MED DRAWER 7, Y5N ONE (08:33)
--- NOTE | 2018-04-23 08:33 | PN ---
Progress Note, Physician Chief Complaint: Unable to obtain, obtunded - Current Medication List Current Medications: Active Medications Acetaminophen (Ofirmev Injection -) 1,000 mg IVPB Q6H PRN PRN Reason: PAIN OR FEVER Last Admin: 04/21/18 13:57 Dose: 1,000 mg Aspirin (Asa -) 150 mg RC DAILY [facility] Last Admin: 04/22/18 11:40 Dose: 150 mg Chlorhexidine Gluconate (Hibiclens For Decolonization -) 1 applic TP HS [facility] Last Admin: 04/22/18 22:08 Dose: 1 applic Dexamethasone Sodium Phosphate (Decadron Injection -) 6 mg IVPUSH Q6H-IV [facility] Last Admin: 04/23/18 02:04 Dose: 6 mg Folic Acid (Folic Acid Injection -) 1 mg SQ DAILY [facility] Last Admin: 04/22/18 10:47 Dose: 1 mg Propofol (Diprivan -) 1,000,000 mcg in 100 mls @ 2.449 mls/hr IV TITR [facility]; Protocol Last Admin: 04/23/18 02:06 Dose: 15 mcg/kg/min, 7.348 mls/hr Midazolam HCl 100 mg/ Sodium (Chloride) 100 mls @ 1 mls/hr IVPB TITR [facility]; Protocol Last Admin: 04/23/18 06:55 Dose: 6 mg/hr, 6 mls/hr Piperacillin Sod/Tazobactam (Sod 2.25 gm/ Dextrose) 50 mls @ 100 mls/hr IVPB Q6H-IV [facility]; Protocol Last Admin: 04/23/18 02:05 Dose: 100 mls/hr Norepinephrine Bitartrate 8, (000 mcg/ Dextrose) 500 mls @ 18.75 mls/hr IV TITR [facility]; Protocol Last Admin: 04/22/18 16:15 Dose: Not Given Sodium Bicarbonate 75 meq/ (Sodium Chloride) 1,075 mls @ 125 mls/hr IV Q8H [facility] Last Admin: 04/23/18 01:46 Dose: 125 mls/hr Insulin Aspart (Novolog Vial Sliding Scale -) 1 vial SQ Q6H [facility]; Protocol Last Admin: 04/23/18 06:58 Dose: 2 units Levetiracetam (Keppra Injection -) 500 mg IVPB BID [facility] Last Admin: 04/22/18 22:09 Dose: 500 mg Mupirocin (Bactroban Ointment (For Decolonization) -) 1 applic NS BID [facility] Stop: 04/25/18 09:59 Last Admin: 04/22/18 22:07 Dose: 1 applic Pantoprazole Sodium (Protonix Iv) 40 mg IVPUSH DAILY [facility] Last Admin: 04/22/18 09:15 Dose: 40 mg Thiamine HCl (Vitamin B1 Injection -) 200 mg IM DAILY [facility] Last Admin: 04/22/18 09:20 Dose: 200 mg - Objective Vital Signs: Vital Signs Temperature 38.2 C H 04/23/18 02:00 Pulse Rate 112 H 04/23/18 06:00 Respiratory Rate 26 H 04/23/18 07:05 Blood Pressure 147/78 04/23/18 06:00 O2 Sat by Pulse Oximetry (%) 99 04/22/18 22:14 Constitutional: Yes: Other (obtunded) Eyes: Yes: PERRL Cardiovascular: Yes: Tachycardia. No: Pulse Irregular, Gallop, Murmur, Rub Respiratory: Yes: CTA Bilaterally (anterior), Intubated, Mechanically Ventilated , Tachypnea. No: Regular, Rales, Rhonchi, Wheezes Gastrointestinal: Yes: Distention, Hypoactive Bowel Sounds. No: Tenderness Extremities: Yes: WNL Edema: No Wound/Incision: Yes: Bleeding (at all IV/central line sites) Labs: INR, PTT INR 1.13 (0.83-1.09) H 04/21/18 05:30 Problem List - Problems (1) Lactic acidosis Code(s): E87.2 - ACIDOSIS (2) Toxic metabolic encephalopathy Code(s): G92 - TOXIC ENCEPHALOPATHY (3) Sepsis Code(s): A41.9 - SEPSIS, UNSPECIFIED ORGANISM (4) Acute respiratory failure with hypoxia Code(s): J96.01 - ACUTE RESPIRATORY FAILURE WITH HYPOXIA (5) Shock Code(s): R57.9 - SHOCK, UNSPECIFIED (6) NSTEMI (non-ST elevated myocardial infarction) Code(s): I21.4 - NON-ST ELEVATION (NSTEMI) MYOCARDIAL INFARCTION (7) Cocaine use Code(s): F14.90 - COCAINE USE, UNSPECIFIED, UNCOMPLICATED (8) Cardiac arrest Code(s): I46.9 - CARDIAC ARREST, CAUSE UNSPECIFIED (9) JENNIFER (acute kidney injury) Code(s): N17.9 - ACUTE KIDNEY FAILURE, UNSPECIFIED (10) Hyperkalemia Code(s): E87.5 - HYPERKALEMIA (11) DIC (disseminated intravascular coagulation) Code(s): D65 - DISSEMINATED INTRAVASCULAR COAGULATION Assessment/Plan -concern for DIC -agree with stopping heparin -will check PT/d-dimer/fibrinogen -now on stress dose steroids -continue levophed as needed -continue zosyn -back on bicarb gtt -continue keppra for seizure ppx -poor prognosis 37 minutes spent in critical care time with this patient
[2018-04-23 08:34] LABS: HEMATOCRIT 30.1 % (35.4-49); HEMOGLOBIN 10.5 GM/dL (11.7-16.9); LYMPH % 6.3 % (8-40); MCHC 34.9 g/dl (32.0-35.9); MEAN CELL VOLUME 88.9 fl (80-96); MEAN PLT VOLUME 10.1 fl (7.5-11.1); MONO % 3.6 % (3.8-10.2); NEUT % 90.1 % (42.8-82.8); PLATELET COUNT 89 K/MM3 (134-434); RBC 3.39 M/mm3 (4.00-5.60); RDW 13.7 % (11.9-15.9); WHITE BLOOD COUNT 11.5 K/mm3 (4.0-10.0)
[2018-04-23] MEDS ORDERED: DEXTROSE 5%-WATER - 50 ML IVPB ONE ×3 (08:34→20:45)
[2018-04-23 08:44] LABS: INR 1.3 (0.83-1.09); PROTHROMBIN TIME (PATIENT) 15.4 SEC (9.7-13.0)
[2018-04-23 09:12] LABS: ALBUMIN 1.9 g/dl (3.4-5.0); ALK PHOS 54 U/L (45-117); ANION GAP 16 MMOL/L (8-16); BILIRUBIN,TOTAL 0.4 mg/dL (0.2-1); BLOOD UREA NITROGEN 89 mg/dL (7-18); CALCIUM 7.1 mg/dL (8.5-10.1); CHLORIDE 103 mmol/L (98-107); CO2 19 mmol/L (21-32); GLUCOSE,RANDOM 164 mg/dL (74-106); POTASSIUM 4.9 mmol/L (3.5-5.1); SGOT/AST 148 U/L (15-37); SGPT/ALT 83 U/L (13-61); SODIUM 138 mmol/L (136-145)
[2018-04-23 09:19] LABS: CREATININE 8.7 mg/dL (0.55-1.3)
[2018-04-23] MEDS: ASPIRIN 300 MG SUPP.RECT RC SCH (09:24)
[2018-04-23] MEDS: FOLIC ACID 5 MG/1 ML SQ SCH (09:25)
[2018-04-23] MEDS: MUPIROCIN 2% TOPICAL OINTMENT FOR DECOLONIZATION NS SCH (09:25)
[2018-04-23] MEDS: PANTOPRAZOLE SODIUM 40 MG VIAL IVPUSH SCH (09:27)
[2018-04-23] MEDS: levETIRAcetam 500 MG/5 ML INJECTION VIAL IVPB SCH ×2 (09:28→21:00)
[2018-04-23] MEDS: THIAMINE HCL 200 MG/2 ML VIAL IM SCH (09:29)
--- NOTE | 2018-04-23 12:47 | PN ---
Progress Note (short form) - Note Progress Note: RENAL Pt seen in icu He is intubated and unresponsive urine output is poor Last Vital Signs Temp Pulse Resp BP Pulse Ox 99.5 F 100 H 23 H 132/79 99 04/23/18 10:00 04/23/18 10:00 04/23/18 10:00 04/23/18 10:00 04/23/18 10:00 pupils equal ett in place lungs bilat air entry cvs s1s2 rr abd soft ext no edema neuro comatose CBC, BMP 04/23/18 05:30 04/23/18 05:30 Current Medications Generic Name Dose Route Start Last Admin Trade Name Freq PRN Reason Stop Dose Admin Acetaminophen 1,000 mg 04/21/18 13:36 04/21/18 13:57 Ofirmev Injection - IVPB 1,000 mg Q6H PRN Administration PAIN OR FEVER Aspirin 150 mg 04/22/18 11:00 04/23/18 09:24 Asa - RC 150 mg DAILY [facility] Administration Chlorhexidine Gluconate 1 applic 04/20/18 22:00 04/22/18 22:08 Hibiclens For Decolonization - TP 1 applic HS [facility] Administration Dexamethasone Sodium Phosphate 6 mg 04/22/18 09:15 04/23/18 08:37 Decadron Injection - IVPUSH 6 mg Q6H-IV [facility] Administration Folic Acid 1 mg 04/20/18 05:17 04/23/18 09:25 Folic Acid Injection - SQ 1 mg DAILY [facility] Administration Propofol 1,000,000 mcg in 100 mls @ 2.449 mls/hr 04/20/18 07:45 04/23/18 09: 23 Diprivan - IV 15 mcg/kg/min TITR [facility] 7.348 mls/hr Administration Protocol 5 MCG/KG/MIN Midazolam HCl 100 mg/ Sodium 100 mls @ 1 mls/hr 04/20/18 09:45 04/23/18 06:55 Chloride IVPB 6 mg/hr TITR [facility] 6 mls/hr Administration Protocol 1 MG/HR Piperacillin Sod/Tazobactam 50 mls @ 100 mls/hr 04/21/18 15:00 04/23/18 08:37 Sod 2.25 gm/ Dextrose IVPB 100 mls/hr Q6H-IV [facility] Administration Protocol Norepinephrine Bitartrate 8, 500 mls @ 18.75 mls/hr 04/21/18 16:15 04/22/18 16:15 000 mcg/ Dextrose IV Not Given TITR [facility] Protocol 5 MCG/MIN Sodium Bicarbonate 75 meq/ 1,075 mls @ 125 mls/hr 04/22/18 10:30 04/23/18 10: 20 Sodium Chloride IV 125 mls/hr Q8H [facility] Administration Insulin Aspart 1 vial 04/20/18 18:00 04/23/18 06:58 Novolog Vial Sliding Scale - SQ 2 units Q6H [facility] Administration Protocol Levetiracetam 500 mg 04/20/18 12:00 04/23/18 09:28 Keppra Injection - IVPB 500 mg BID [facility] Administration Mupirocin 1 applic 04/20/18 10:00 04/23/18 09:25 Bactroban Ointment (For Decolonization) - NS 04/25/18 09:59 1 applic BID [facility] Administration Pantoprazole Sodium 40 mg 04/20/18 14:30 04/23/18 09:27 Protonix Iv IVPUSH 40 mg DAILY [facility] Administration Thiamine HCl 200 mg 04/20/18 05:16 04/23/18 09:29 Vitamin B1 Injection - IM 200 mg DAILY [facility] Administration Impression 1. cardiac arrest 2. varun probably from cardiac arrest 3. hyperkalemia 4. shock 5. cocain use 6. lactic acidosis 7. NSTEMI Plan continue fluids give trial of lasix to see if he opens up hold hd for now. Note HD could potentially worsen cerebral edema Will reevaluate need for hd tomorrow MV
[2018-04-23] MEDS ORDERED: PEG 3350/NA SULF BICARB CL/KCL 4000 ML SOLN.RECON NGT ONE (14:02)
[2018-04-23] MEDS: NOREPINEPHRINE BITARTRATE 8,000 MCG in DEXTROSE 5%-WATER - 492 ML IV SCH (14:20)
--- NOTE | 2018-04-23 14:22 | PN ---
Progress Note, Physician - Current Medication List Current Medications: Active Medications Acetaminophen (Ofirmev Injection -) 1,000 mg IVPB Q6H PRN PRN Reason: PAIN OR FEVER Last Admin: 04/21/18 13:57 Dose: 1,000 mg Aspirin (Asa -) 150 mg RC DAILY [facility] Last Admin: 04/23/18 09:24 Dose: 150 mg Chlorhexidine Gluconate (Hibiclens For Decolonization -) 1 applic TP HS [facility] Last Admin: 04/22/18 22:08 Dose: 1 applic Dexamethasone Sodium Phosphate (Decadron Injection -) 6 mg IVPUSH Q6H-IV [facility] Last Admin: 04/23/18 08:37 Dose: 6 mg Folic Acid (Folic Acid Injection -) 1 mg SQ DAILY [facility] Last Admin: 04/23/18 09:25 Dose: 1 mg Propofol (Diprivan -) 1,000,000 mcg in 100 mls @ 2.449 mls/hr IV TITR [facility]; Protocol Last Admin: 04/23/18 09:23 Dose: 15 mcg/kg/min, 7.348 mls/hr Midazolam HCl 100 mg/ Sodium (Chloride) 100 mls @ 1 mls/hr IVPB TITR [facility]; Protocol Last Admin: 04/23/18 09:45 Dose: 6 mg/hr, 6 mls/hr Piperacillin Sod/Tazobactam (Sod 2.25 gm/ Dextrose) 50 mls @ 100 mls/hr IVPB Q6H-IV [facility]; Protocol Last Admin: 04/23/18 08:37 Dose: 100 mls/hr Norepinephrine Bitartrate 8, (000 mcg/ Dextrose) 500 mls @ 18.75 mls/hr IV TITR [facility]; Protocol Last Admin: 04/22/18 16:15 Dose: Not Given Sodium Bicarbonate 75 meq/ (Sodium Chloride) 1,075 mls @ 125 mls/hr IV Q8H [facility] Last Admin: 04/23/18 10:20 Dose: 125 mls/hr Furosemide 100 mg/ Dextrose 100 mls @ 5 mls/hr IVPB TITR [facility] Insulin Aspart (Novolog Vial Sliding Scale -) 1 vial SQ Q6H [facility]; Protocol Last Admin: 04/23/18 13:09 Dose: 2 units Levetiracetam (Keppra Injection -) 500 mg IVPB BID [facility] Last Admin: 04/23/18 09:28 Dose: 500 mg Mupirocin (Bactroban Ointment (For Decolonization) -) 1 applic NS BID [facility] Stop: 04/25/18 09:59 Last Admin: 04/23/18 09:25 Dose: 1 applic Pantoprazole Sodium (Protonix Iv) 40 mg IVPUSH DAILY [facility] Last Admin: 04/23/18 09:27 Dose: 40 mg Polyethylene Glycol/Electrolytes (Golytely Solution -) 4,000 ml NGT ONCE ONE Stop: 04/23/18 14:03 Thiamine HCl (Vitamin B1 Injection -) 200 mg IM DAILY [facility] Last Admin: 04/23/18 09:29 Dose: 200 mg - Objective Vital Signs: Vital Signs Temperature 99.5 F 04/23/18 10:00 Pulse Rate 100 H 04/23/18 10:00 Respiratory Rate 23 H 04/23/18 10:00 Blood Pressure 132/79 04/23/18 10:00 O2 Sat by Pulse Oximetry (%) 99 04/23/18 10:00 Labs: CBC, BMP 04/23/18 05:30 04/23/18 05:30 INR, PTT INR 1.30 (0.83-1.09) H 04/23/18 05:30 Fibrinogen > 500.0 mg/dL (238-498) H 04/23/18 05:30
[2018-04-23] MEDS ORDERED: METOCLOPRAMIDE HCL INJECTION 10 MG/2 ML VIAL IVPUSH ONE (14:23)
[2018-04-23] MEDS ORDERED: METOCLOPRAMIDE HCL INJECTION 10 MG/2 ML VIAL IVPUSH PRN (14:23)
[2018-04-23] MEDS ORDERED: CHARCOAL/SORBITOL SOLUTION 25 GM/120 ML BTL NGT ONE (14:53)
[2018-04-23] MEDS ORDERED: FUROSEMIDE 40 MG/4 ML INJECTABLE VIAL ONE (15:09)
[2018-04-23] MEDS: FUROSEMIDE INJECTION 100 MG in DEXTROSE 5%-WATER - 90 ML IVPB SCH (15:11)
[2018-04-23] MEDS ORDERED: PEG3350/SOD SULF,BICARB,CL/KCL 4,000 ML SOLN.RECON PO ONE (15:30)
[2018-04-24] MEDS ORDERED: DEXTROSE 5%-WATER - 50 ML IVPB ONE ×3 (01:37→13:11)
[2018-04-24] MEDS ORDERED: PIPERACILLIN/TAZOBACTAM 2.25 GM VIAL IVPB ONE ×3 (01:37→13:11)
[2018-04-24] MEDS: CHLORHEXIDINE GLUCONATE 4% CLEANSER FOR DECOLONIZATION TP SCH (02:07)
[2018-04-24] MEDS: MUPIROCIN 2% TOPICAL OINTMENT FOR DECOLONIZATION NS SCH ×2 (02:08→10:04)
[2018-04-24] MEDS: INSULIN SLIDING SCALE (NOVOLOG) 1 VIAL SQ SCH ×4 (02:08→17:45)
[2018-04-24] MEDS: PIPERACILLIN/TAZOB 2.25 GM 2.25 GM in DEXTROSE 5%-WATER - 50 ML IVPB SCH ×3 (02:08→15:58)
[2018-04-24] MEDS: DEXAMETHASONE SOD PHOSPHATE 4 MG/1 ML VIAL IVPUSH SCH ×3 (02:11→15:58)
[2018-04-24] MEDS: PROPOFOL 1,000,000 MCG/100 ML VIAL IV SCH ×3 (07:00→17:47)
[2018-04-24] MEDS: SODIUM BICARBONATE 8.4% - 75 MEQ in SODIUM CHLORIDE 0.45% 1,000 ML IV SCH ×6 (07:38→17:46)
[2018-04-24 07:50] LABS: ANION GAP 18 MMOL/L (8-16); CHLORIDE 100 mmol/L (98-107); CO2 21 mmol/L (21-32); GLUCOSE,RANDOM 155 mg/dL (74-106); MAGNESIUM 3.8 mg/dL (1.8-2.4); PHOSPHOROUS 5.8 mg/dL (2.5-4.9); SODIUM 139 mmol/L (136-145)
[2018-04-24 08:16] LABS: ALBUMIN 1.9 g/dl (3.4-5.0); ALK PHOS 47 U/L (45-117); BILIRUBIN,DIRECT 0.2 mg/dL (0.0-0.2); BILIRUBIN,TOTAL 0.4 mg/dL (0.2-1); SGOT/AST 92 U/L (15-37); SGPT/ALT 65 U/L (13-61); TOT PROT 4.7 g/dl (6.4-8.2)
--- NOTE | 2018-04-24 08:34 | PN ---
Progress Note, Physician Chief Complaint: Unable to obtain, obtunded - Current Medication List Current Medications: Active Medications Acetaminophen (Ofirmev Injection -) 1,000 mg IVPB Q6H PRN PRN Reason: PAIN OR FEVER Last Admin: 04/21/18 13:57 Dose: 1,000 mg Aspirin (Asa -) 150 mg RC DAILY [facility] Last Admin: 04/23/18 09:24 Dose: 150 mg Chlorhexidine Gluconate (Hibiclens For Decolonization -) 1 applic TP HS [facility] Last Admin: 04/24/18 02:07 Dose: 1 applic Dexamethasone Sodium Phosphate (Decadron Injection -) 6 mg IVPUSH Q6H-IV [facility] Last Admin: 04/24/18 02:11 Dose: 6 mg Folic Acid (Folic Acid Injection -) 1 mg SQ DAILY [facility] Last Admin: 04/23/18 09:25 Dose: 1 mg Propofol (Diprivan -) 1,000,000 mcg in 100 mls @ 2.449 mls/hr IV TITR [facility]; Protocol Last Admin: 04/23/18 09:23 Dose: 15 mcg/kg/min, 7.348 mls/hr Midazolam HCl 100 mg/ Sodium (Chloride) 100 mls @ 1 mls/hr IVPB TITR [facility]; Protocol Last Admin: 04/23/18 21:02 Dose: 6 mg/hr, 6 mls/hr Piperacillin Sod/Tazobactam (Sod 2.25 gm/ Dextrose) 50 mls @ 100 mls/hr IVPB Q6H-IV [facility]; Protocol Last Admin: 04/24/18 02:08 Dose: 100 mls/hr Norepinephrine Bitartrate 8, (000 mcg/ Dextrose) 500 mls @ 18.75 mls/hr IV TITR [facility]; Protocol Last Admin: 04/23/18 14:20 Dose: Not Given Sodium Bicarbonate 75 meq/ (Sodium Chloride) 1,075 mls @ 125 mls/hr IV Q8H [facility] Last Admin: 04/24/18 07:39 Dose: Not Given Furosemide 100 mg/ Dextrose 100 mls @ 5 mls/hr IVPB TITR [facility]; Protocol Last Admin: 04/23/18 15:11 Dose: 5 mg/hr, 5 mls/hr Insulin Aspart (Novolog Vial Sliding Scale -) 1 vial SQ Q6H [facility]; Protocol Last Admin: 04/24/18 07:23 Dose: Not Given Levetiracetam (Keppra Injection -) 500 mg IVPB BID [facility] Last Admin: 04/23/18 21:00 Dose: 500 mg Metoclopramide HCl (Reglan Injection -) 10 mg IVPUSH Q6H PRN PRN Reason: NAUSEA AND/OR VOMITING Mupirocin (Bactroban Ointment (For Decolonization) -) 1 applic NS BID [facility] Stop: 04/25/18 09:59 Last Admin: 04/24/18 02:08 Dose: 1 applic Pantoprazole Sodium (Protonix Iv) 40 mg IVPUSH DAILY [facility] Last Admin: 04/23/18 09:27 Dose: 40 mg Thiamine HCl (Vitamin B1 Injection -) 200 mg IM DAILY [facility] Last Admin: 04/23/18 09:29 Dose: 200 mg - Objective Vital Signs: Vital Signs Temperature 37.1 C 04/24/18 06:00 Pulse Rate 73 04/24/18 06:00 Respiratory Rate 28 H 04/24/18 06:51 Blood Pressure 137/90 04/24/18 06:00 O2 Sat by Pulse Oximetry (%) 100 04/23/18 21:36 Constitutional: Yes: Other (obtunded) Cardiovascular: Yes: Regular Rate and Rhythm. No: Gallop, Murmur, Rub Respiratory: Yes: Regular, CTA Bilaterally (anteriorly), Intubated, Mechanically Ventilated. No: Rales, Rhonchi, Wheezes Gastrointestinal: Yes: Distention, Hypoactive Bowel Sounds Extremities: Yes: WNL Edema: No Labs: CBC, BMP 04/24/18 05:45 INR, PTT INR 1.30 (0.83-1.09) H 04/23/18 05:30 Fibrinogen > 500.0 mg/dL (238-498) H 04/23/18 05:30 Problem List - Problems (1) Lactic acidosis Code(s): E87.2 - ACIDOSIS (2) Toxic metabolic encephalopathy Code(s): G92 - TOXIC ENCEPHALOPATHY (3) Sepsis Code(s): A41.9 - SEPSIS, UNSPECIFIED ORGANISM (4) Acute respiratory failure with hypoxia Code(s): J96.01 - ACUTE RESPIRATORY FAILURE WITH HYPOXIA (5) Shock Code(s): R57.9 - SHOCK, UNSPECIFIED (6) NSTEMI (non-ST elevated myocardial infarction) Code(s): I21.4 - NON-ST ELEVATION (NSTEMI) MYOCARDIAL INFARCTION (7) Cocaine use Code(s): F14.90 - COCAINE USE, UNSPECIFIED, UNCOMPLICATED (8) Cardiac arrest Code(s): I46.9 - CARDIAC ARREST, CAUSE UNSPECIFIED (9) JENNIFER (acute kidney injury) Code(s): N17.9 - ACUTE KIDNEY FAILURE, UNSPECIFIED (10) Hyperkalemia Code(s): E87.5 - HYPERKALEMIA (11) DIC (disseminated intravascular coagulation) Code(s): D65 - DISSEMINATED INTRAVASCULAR COAGULATION Assessment/Plan -case d/w ICU -suspect retained cocaine in GI tract -ICU spoke with poison control -reglan and miralax to gently pass -however concerning as may have ileus -may need GI consultation, will consult tomorrow if does not pass -currently off of pressors -continue antibiotics -being aggressively diuresed -avoid anticoagulants secondary to DIC -shock liver improving -creatinine worsening but no hyperkalemia -nephrology following -continue kemaryra -very poor prognosis 39 minutes spent in critical care time with this patient
[2018-04-24 08:41] LABS: BLOOD UREA NITROGEN 116 mg/dL (7-18)
[2018-04-24 08:42] LABS: CALCIUM 6.3 mg/dL (8.5-10.1); CREATININE 9.5 mg/dL (0.55-1.3)
[2018-04-24 08:59] LABS: BASO % 0.2 % (0-2.0); HEMATOCRIT 25.7 % (35.4-49); HEMOGLOBIN 9.3 GM/dL (11.7-16.9); LYMPH % 9.4 % (8-40); MCH 31.6 pg (25.7-33.7); MEAN CELL VOLUME 87.8 fl (80-96); MEAN PLT VOLUME 9.4 fl (7.5-11.1); MONO % 3.6 % (3.8-10.2); NEUT % 86.8 % (42.8-82.8); PLATELET COUNT 77 K/MM3 (134-434); RBC 2.93 M/mm3 (4.00-5.60); RDW 13.2 % (11.9-15.9); WHITE BLOOD COUNT 9.9 K/mm3 (4.0-10.0)
[2018-04-24] MEDS: MIDAZOLAM 100 MG in SODIUM CHLORIDE 100 ML IVPB SCH (09:03)
--- NOTE | 2018-04-24 10:08 | PN ---
Progress Note (short form) - Note Progress Note: PULM/CCM Pt Seen & Examined in the ICU. Remains Normo-Thermic. Remains sedated and inubated on the Vent. Coming off of Pressors. CTAP yesterday confirms foreign substance w/ in GI tract. Pt remains refractory to Go-Lytely & Reglan. Active Medications Acetaminophen (Ofirmev Injection -) 1,000 mg IVPB Q6H PRN PRN Reason: PAIN OR FEVER Last Admin: 04/21/18 13:57 Dose: 1,000 mg Aspirin (Asa -) 150 mg RC DAILY [facility] Last Admin: 04/23/18 09:24 Dose: 150 mg Chlorhexidine Gluconate (Hibiclens For Decolonization -) 1 applic TP HS [facility] Last Admin: 04/24/18 02:07 Dose: 1 applic Dexamethasone Sodium Phosphate (Decadron Injection -) 6 mg IVPUSH Q6H-IV [facility] Last Admin: 04/24/18 02:11 Dose: 6 mg Folic Acid (Folic Acid Injection -) 1 mg SQ DAILY [facility] Last Admin: 04/23/18 09:25 Dose: 1 mg Propofol (Diprivan -) 1,000,000 mcg in 100 mls @ 2.449 mls/hr IV TITR [facility]; Protocol Last Admin: 04/23/18 09:23 Dose: 15 mcg/kg/min, 7.348 mls/hr Midazolam HCl 100 mg/ Sodium (Chloride) 100 mls @ 1 mls/hr IVPB TITR [facility]; Protocol Last Admin: 04/23/18 21:02 Dose: 6 mg/hr, 6 mls/hr Piperacillin Sod/Tazobactam (Sod 2.25 gm/ Dextrose) 50 mls @ 100 mls/hr IVPB Q6H-IV [facility]; Protocol Last Admin: 04/24/18 02:08 Dose: 100 mls/hr Norepinephrine Bitartrate 8, (000 mcg/ Dextrose) 500 mls @ 18.75 mls/hr IV TITR [facility]; Protocol Last Admin: 04/23/18 14:20 Dose: Not Given Sodium Bicarbonate 75 meq/ (Sodium Chloride) 1,075 mls @ 125 mls/hr IV Q8H [facility] Last Admin: 04/24/18 07:39 Dose: Not Given Furosemide 100 mg/ Dextrose 100 mls @ 5 mls/hr IVPB TITR [facility]; Protocol Last Admin: 04/23/18 15:11 Dose: 5 mg/hr, 5 mls/hr Insulin Aspart (Novolog Vial Sliding Scale -) 1 vial SQ Q6H COUNTS INCLUDE 234 BEDS AT THE [facility]; Protocol Last Admin: 04/24/18 07:23 Dose: Not Given Levetiracetam (Keppra Injection -) 500 mg IVPB BID [facility]S [facility]CLUDE 234 BEDS AT THE [facility] Last Admin: 04/23/18 21:00 Dose: 500 mg Metoclopramide HCl (Reglan Injection -) 10 mg IVPUSH Q6H PRN PRN Reason: NAUSEA AND/OR VOMITING Mupirocin (Bactroban Ointment (For Decolonization) -) 1 applic NS BID [facility]S [facility]CLUDE 234 BEDS AT THE [facility] Stop: 04/25/18 09:59 Last Admin: 04/24/18 02:08 Dose: 1 applic Pantoprazole Sodium (Protonix Iv) 40 mg IVPUSH DAILY [facility]CLUDE 234 BEDS AT THE [facility] Last Admin: 04/23/18 09:27 Dose: 40 mg Thiamine HCl (Vitamin B1 Injection -) 200 mg IM DAILY [facility]CLUDE 234 BEDS AT THE [facility] Last Admin: 04/23/18 09:29 Dose: 200 mg Vital Signs Period Temp Pulse Resp BP Sys/Boykin Pulse Ox Last 24 Hr 98.2 F-99.5 F 64-95 18-29 114-144/57-90 99-100 Intake & Output 04/21/18 04/22/18 04/23/18 04/24/18 23:59 23:59 23:59 23:59 Intake Total 3802 2745 6902 897 Output Total 4000 160 330 120 Balance -198 2585 6572 777 Weight 81.647 kg 84.6 kg 88.564 kg GEN: Middle aged man intubated & sedated on the Vent PULM: CTAB CARDS: nml S1, S2, RR, unable to appreciate any G/M/R ABD: + BS, disteneded but S/S N/T X4Q Ext: + Pulses, WWPX4, trace peripheral edema CBC, BMP 04/24/18 05:45 04/24/18 05:45 Microbiology 04/20/18 10:15 Blood - Peripheral Venous Blood Culture - Preliminary NO GROWTH OBTAINED AFTER 72 HOURS, INCUBATION TO CONTINUE FOR 2 DAYS. 04/20/18 10:25 Blood - Peripheral Venous Blood Culture - Preliminary NO GROWTH OBTAINED AFTER 72 HOURS, INCUBATION TO CONTINUE FOR 2 DAYS. 04/20/18 10:30 Urine - Urine Carr Urine Culture - Final NO GROWTH OBTAINED RECENT IMAGING TO NOTE: CTAP 04/23: NG tube with tip noted within stomach There are at least 5 cylindrical or ovoid high attenuation structures within the stomach suggestive of foreign bodies each measuring approximately 3 to 4 cm in length. There is a 4.5 x 1.5 cm cylindrical structure noted in the proximal jejunum There is a similar structure seen in the right colon CXR 04/23: A single view the chest reveals a weak inspiration with endotracheal tube tip well above marco right subclavian line with tip in right atrium. There is a prominent mediastinum with some prominent central markings. There is no sign of infiltrate or failure. Correlation recommended. ASSESS: s/p Cardiopulmonary Arrest s/p Hypothermia Protocol Probable Anoxic Encephalopathy Foreign substance in GI tract Acute [place] Cocaine Shock - Septic vs Cardiogenic Severe Metabolic Acidosis improving Hyperglycemia improving Elevated LFTs likely Ischemic Injury Acute Kidney Injury PLAN: - Maintain deep sedation for vent synch - Wean off pressors - STOP Go-Lytely & Reglan --> X-Robin pt to [facility] for [facility] - Maintain Lock Down Unit until pt X-Ferred - No visitors - Security - Trend LFTs - Cont Diuresis - monitor urine output, creatinine - empiric antibiotics - f/u cultures - DVT/GI prophylaxis - continue ICU monitoring - Bring Palliative Care in now CCT spent in reviewing chart, evaluating patient and formulating plan 45" [facility] ICU PULM/CCM 3035 Critical Care Total Critical Care Time (in minutes): 45 Critical Care Statement: The care of this patient involved high complexity decision making to prevent further life threatening deterioration of the patient 's condition and/or to evaluate & treat vital organ system(s) failure or risk of failure.
--- NOTE | 2018-04-24 10:18 | PN ---
Progress Note (short form) - Note Progress Note: RENAL Pt seen in icu He is intubated and unresponsive urine output is poor Last Vital Signs Temp Pulse Resp BP Pulse Ox 98.8 F 66 18 144/90 99 04/24/18 06:00 04/24/18 09:00 04/24/18 09:21 04/24/18 09:00 04/24/18 09:00 pupils equal ett in place lungs bilat air entry cvs s1s2 rr abd soft ext no edema neuro comatose CBC, BMP 04/24/18 05:45 04/24/18 05:45 Current Medications Generic Name Dose Route Start Last Admin Trade Name Freq PRN Reason Stop Dose Admin Acetaminophen 1,000 mg 04/21/18 13:36 04/21/18 13:57 Ofirmev Injection - IVPB 1,000 mg Q6H PRN Administration PAIN OR FEVER Aspirin 150 mg 04/22/18 11:00 04/23/18 09:24 Asa - RC 150 mg DAILY MORRIS Administration Chlorhexidine Gluconate 1 applic 04/20/18 22:00 04/24/18 02:07 Hibiclens For Decolonization - TP 1 applic HS M[facility]RIS Administration Dexamethasone Sodium Phosphate 6 mg 04/22/18 09:15 04/24/18 02:11 Decadron Injection - IVPUSH 6 mg Q6H-IV [facility]IS Administration Folic Acid 1 mg 04/20/18 05:17 04/23/18 09:25 Folic Acid Injection - SQ 1 mg DAILY M[facility]IS Administration Propofol 1,000,000 mcg in 100 mls @ 2.449 mls/hr 04/20/18 07:45 04/23/18 09: 23 Diprivan - IV 15 mcg/kg/min TITR MORRIS 7.348 mls/hr Administration Protocol 5 MCG/KG/MIN Midazolam HCl 100 mg/ Sodium 100 mls @ 1 mls/hr 04/20/18 09:45 04/23/18 21:02 Chloride IVPB 6 mg/hr TITR MORRIS 6 mls/hr Administration Protocol 1 MG/HR Piperacillin Sod/Tazobactam 50 mls @ 100 mls/hr 04/21/18 15:00 04/24/18 02:08 Sod 2.25 gm/ Dextrose IVPB 100 mls/hr Q6H-IV [facility] Administration Protocol Norepinephrine Bitartrate 8, 500 mls @ 18.75 mls/hr 04/21/18 16:15 04/23/18 14:20 000 mcg/ Dextrose IV Not Given TITR OMRRIS Protocol 5 MCG/MIN Sodium Bicarbonate 75 meq/ 1,075 mls @ 125 mls/hr 04/22/18 10:30 04/24/18 07: 39 Sodium Chloride IV Not Given Q8H [facility] Furosemide 100 mg/ Dextrose 100 mls @ 5 mls/hr 04/23/18 14:15 04/23/18 15:11 IVPB 5 mg/hr TITR M[facility]RIS 5 mls/hr Administration Protocol 5 MG/HR Insulin Aspart 1 vial 04/20/18 18:00 04/24/18 07:23 Novolog Vial Sliding Scale - SQ Not Given Q6H [facility] Protocol Levetiracetam 500 mg 04/20/18 12:00 04/23/18 21:00 Keppra Injection - IVPB 500 mg BID [facility] Administration Metoclopramide HCl 10 mg 04/23/18 14:23 Reglan Injection - IVPUSH Q6H PRN NAUSEA AND/OR VOMITING Mupirocin 1 applic 04/20/18 10:00 04/24/18 02:08 Bactroban Ointment (For Decolonization) - NS 04/25/18 09:59 1 applic BID [facility] Administration Pantoprazole Sodium 40 mg 04/20/18 14:30 04/23/18 09:27 Protonix Iv IVPUSH 40 mg DAILY [facility] Administration Thiamine HCl 200 mg 04/20/18 05:16 04/23/18 09:29 Vitamin B1 Injection - IM 200 mg DAILY [facility] Administration Impression 1. cardiac arrest 2. varun probably from cardiac arrest 3. hyperkalemia 4. shock 5. cocaine use 6. lactic acidosis 7. NSTEMI Plan continue fluids hold hd for now. Note HD could potentially worsen cerebral edema Will reevaluate need for hd tomorrow MV
[2018-04-24] MEDS ORDERED: INSULIN (NOVOLOG) ASPART 100 UNITS/ML 10ML VIAL ONE (10:38)
[2018-04-24] MEDS: THIAMINE HCL 200 MG/2 ML VIAL IM SCH (10:50)
[2018-04-24] MEDS ORDERED: MIDAZOLAM 100 MG/100 ML MG IVPB ONE (10:57)
[2018-04-24] MEDS: levETIRAcetam 500 MG/5 ML INJECTION VIAL IVPB SCH (10:59)
[2018-04-24] MEDS: PANTOPRAZOLE SODIUM 40 MG VIAL IVPUSH SCH (10:59)
[2018-04-24] MEDS: ASPIRIN 300 MG SUPP.RECT RC SCH (11:01)
[2018-04-24] MEDS ORDERED: PT OWN MED DRAWER 7, Y5N ONE ×2 (13:27→13:34)
--- NOTE | 2018-04-24 13:30 | PN ---
Progress Note, Physician History of Present Illness: continues to be intubated greensanjuanita kennedyrhoea - Current Medication List Current Medications: Active Medications Acetaminophen (Ofirmev Injection -) 1,000 mg IVPB Q6H PRN PRN Reason: PAIN OR FEVER Last Admin: 04/21/18 13:57 Dose: 1,000 mg Aspirin (Asa -) 150 mg RC DAILY [facility] Last Admin: 04/24/18 11:01 Dose: 150 mg Chlorhexidine Gluconate (Hibiclens For Decolonization -) 1 applic TP HS M[facility]RIS Last Admin: 04/24/18 02:07 Dose: 1 applic Dexamethasone Sodium Phosphate (Decadron Injection -) 6 mg IVPUSH Q6H-IV [facility] Last Admin: 04/24/18 11:00 Dose: 6 mg Folic Acid (Folic Acid Injection -) 1 mg SQ DAILY [facility] Last Admin: 04/23/18 09:25 Dose: 1 mg Propofol (Diprivan -) 1,000,000 mcg in 100 mls @ 2.449 mls/hr IV TITR [facility]RIS; Protocol Last Admin: 04/24/18 07:00 Dose: Not Given Midazolam HCl 100 mg/ Sodium (Chloride) 100 mls @ 1 mls/hr IVPB TITR M[facility]RIS; Protocol Last Admin: 04/24/18 09:03 Dose: Not Given Piperacillin Sod/Tazobactam (Sod 2.25 gm/ Dextrose) 50 mls @ 100 mls/hr IVPB Q6H-IV [facility]; Protocol Last Admin: 04/24/18 10:59 Dose: 100 mls/hr Norepinephrine Bitartrate 8, (000 mcg/ Dextrose) 500 mls @ 18.75 mls/hr IV TITR M[facility]RIS; Protocol Last Admin: 04/23/18 14:20 Dose: Not Given Sodium Bicarbonate 75 meq/ (Sodium Chloride) 1,075 mls @ 125 mls/hr IV Q8H [facility] Last Admin: 04/24/18 11:02 Dose: Not Given Furosemide 100 mg/ Dextrose 100 mls @ 5 mls/hr IVPB TITR M[facility]RIS; Protocol Last Admin: 04/23/18 15:11 Dose: 5 mg/hr, 5 mls/hr Insulin Aspart (Novolog Vial Sliding Scale -) 1 vial SQ Q6H [facility]; Protocol Last Admin: 04/24/18 07:23 Dose: Not Given Levetiracetam (Keppra Injection -) 500 mg IVPB BID [facility] Last Admin: 04/24/18 10:59 Dose: 500 mg Metoclopramide HCl (Reglan Injection -) 10 mg IVPUSH Q6H PRN PRN Reason: NAUSEA AND/OR VOMITING Mupirocin (Bactroban Ointment (For Decolonization) -) 1 applic NS BID [facility] Stop: 04/25/18 09:59 Last Admin: 04/24/18 10:04 Dose: 1 applic Pantoprazole Sodium (Protonix Iv) 40 mg IVPUSH DAILY [facility] Last Admin: 04/24/18 10:59 Dose: 40 mg Thiamine HCl (Vitamin B1 Injection -) 200 mg IM DAILY [facility] Last Admin: 04/24/18 10:50 Dose: 200 mg - Objective Vital Signs: Vital Signs Temperature 98.8 F 04/24/18 06:00 Pulse Rate 63 04/24/18 11:59 Respiratory Rate 18 04/24/18 11:59 Blood Pressure 144/90 04/24/18 09:00 O2 Sat by Pulse Oximetry (%) 99 04/24/18 11:59 Constitutional: Yes: Other Cardiovascular: Yes: Regular Rate and Rhythm Respiratory: Yes: Intubated, Mechanically Ventilated Gastrointestinal: Yes: Soft, Hypoactive Bowel Sounds Genitourinary: Yes: WNL Musculoskeletal: Yes: WNL Extremities: Yes: WNL Neurological: Yes: Other Labs: CBC, BMP 04/24/18 05:45 04/24/18 05:45 INR, PTT INR 1.30 (0.83-1.09) H 04/23/18 05:30 Fibrinogen > 500.0 mg/dL (238-498) H 04/23/18 05:30 - ....Imaging Cat Scan: Report Reviewed, Image Reviewed Assessment/Plan Problem List - Problems (1) Lactic acidosis Code(s): E87.2 - ACIDOSIS (2) Toxic metabolic encephalopathy Code(s): G92 - TOXIC ENCEPHALOPATHY (3) Sepsis Code(s): A41.9 - SEPSIS, UNSPECIFIED ORGANISM (4) Acute respiratory failure with hypoxia Code(s): J96.01 - ACUTE RESPIRATORY FAILURE WITH HYPOXIA (5) Shock Code(s): R57.9 - SHOCK, UNSPECIFIED (6) NSTEMI (non-ST elevated myocardial infarction) Code(s): I21.4 - NON-ST ELEVATION (NSTEMI) MYOCARDIAL INFARCTION (7) Cocaine use Code(s): F14.90 - COCAINE USE, UNSPECIFIED, UNCOMPLICATED (8) Cardiac arrest Code(s): I46.9 - CARDIAC ARREST, CAUSE UNSPECIFIED plan aspiration prevention continue abx aspiration precautions resp support await for all cx reports rest as per icu 40 min cc
[2018-04-24] MEDS: FOLIC ACID 5 MG/1 ML SQ SCH (13:36)
[2018-04-24] MEDS: FUROSEMIDE INJECTION 100 MG in DEXTROSE 5%-WATER - 90 ML IVPB SCH (14:59)
[2018-04-24 15:02] VITALS: TEMP 97.5
[2018-04-24 16:50] VITALS: BP 147/89; PULSE 61
--- NOTE | 2018-04-24 17:34 | DS ---
Physical Examination Vital Signs: Vital Signs Temperature 36.4 C L 04/24/18 14:00 Pulse Rate 61 04/24/18 16:00 Respiratory Rate 22 H 04/24/18 16:00 Blood Pressure 147/89 04/24/18 16:00 O2 Sat by Pulse Oximetry (%) 99 04/24/18 11:59 Labs: CBC, BMP 04/24/18 05:45 04/24/18 05:45 Discharge Summary Reason For Visit: CARDIAC ARREST Current Active Problems JENNIFER (acute kidney injury) (Acute) Acute respiratory failure with hypoxia (Acute) Cardiac arrest (Acute) Cocaine use (Acute) DIC (disseminated intravascular coagulation) (Acute) Elevated LFTs (Acute) Hyperkalemia (Acute) Lactic acidosis (Acute) NSTEMI (non-ST elevated myocardial infarction) (Acute) Renal dysfunction (Acute) Sepsis (Acute) Shock (Acute) Signs of return of spontaneous circulation (Acute) Toxic metabolic encephalopathy (Acute) Hospital Course: Patient is a 48 year old male who presented after being found down outside the hospital and resuscitated for 30 minutes. He was admitted to the ICU and was found to have a drug screen positive for cocaine. He presented with hypoxic respiratory failure, lactic acidosis, septic shock, shock liver, NSTEMI, and JENNIFER. He was placed on the cooling protocol per critical care team. ID was consulted and he was empirically started on zosyn. He had elevated troponins, cardiology was consulted and he was placed on a heparin gtt, however this had to be stopped secondary to bleeding from DIC. Nephrology was consulted for JENNIFER and hyperkalemia, however his potassium was treated medically and is now stable. He does have worsening BUN/Cr and was planned for line placement and HD if did not improve. Head CTs show anoxic brain injury, neurology is following and prognosis is poor. A CT scan of the abdomen and pelvis was performed and he was found to have retained cylindrical capsules in his stomach, jejunum, and right colon. There is concern that these may be retained cocaine packets, poison control was consulted and a trial of go lytely and reglan was attempted. He has not passed any of the packets. Because of this he will need a higher level of care for surgical retrieval, he has been accepted and will be transferred for further care. 45 minutes spent in preparation of this discharge Condition: Critical - Instructions - Home Medications Comprehensive Discharge Medication List: Ambulatory Orders Unobtainable 04/20/18
[2018-04-24] MEDS: NOREPINEPHRINE BITARTRATE 8,000 MCG in DEXTROSE 5%-WATER - 492 ML IV SCH (17:46)
== END 2018-04-24 20:11 | disposition short-term general hospital (02) | DRG 720 ==
LOC: JER 01:08 → JERBED 03:54 → JICU 06:29
PROVIDERS: ADMIT Internal Medicine; ATTEND Internal Medicine
PROC: 0BH17EZ Insertion of Endotracheal Airway into Trachea, Via Natural or Artificial Opening (ICD-10-PCS; principal; 2018-04-20)
PROC: 5A1955Z Respiratory Ventilation, Greater than 96 Consecutive Hours (ICD-10-PCS; 2018-04-20)
DX: A41.89 Other specified sepsis (principal); J96.01 Acute respiratory failure with hypoxia; I46.9 Cardiac arrest, cause unspecified; R68.0 Hypothermia, not associated with low environmental temperature; E11.10 Type 2 diabetes mellitus with ketoacidosis without coma; N17.9 Acute kidney failure, unspecified; E83.52 Hypercalcemia; E87.6 Hypokalemia; E87.2 Acidosis; R09.02 Hypoxemia; R65.21 Severe sepsis with septic shock; I21.4 Non-ST elevation (NSTEMI) myocardial infarction; E86.1 Hypovolemia; E11.65 Type 2 diabetes mellitus with hyperglycemia; F14.229 Cocaine dependence with intoxication, unspecified; R94.5 Abnormal results of liver function studies; N28.9 Disorder of kidney and ureter, unspecified; G93.6 Cerebral edema; E87.5 Hyperkalemia; G92 Toxic encephalopathy; T40.5X1A Poisoning by cocaine, accidental (unintentional), initial encounter; R00.0 Tachycardia, unspecified; G93.1 Anoxic brain damage, not elsewhere classified; D65 Disseminated intravascular coagulation [defibrination syndrome]; K72.00 Acute and subacute hepatic failure without coma
CPT/HCPCS: 36415; 36600; 70450-TC; 71045-TC-FY; 74018-TC-FY; 74176-TC; 76775-TC; 80048; 80053; 80061; 80076; 80307; 81003; 81015; 82140; 82375; 82436; 82550; 82553; 82570; 82803; 82962; 83036; 83050; 83605; 83721; 83735; 84100; 84133; 84156; 84300; 84443; 84484; 85025; 85379; 85384; 85610; 85730; 86850; 86900; 86901; 87040; 87086; 93005; 93010; 93306-TC; 94002; 99285-25; G0480; J0131; J1644; J7030